=== PATIENT | male | born 1965 | race Caucasian/White ===

== ENCOUNTER → 2021-05-12 15:24 | Outpatient (CLI) | payer OTHER, MEDICAID, SELFPAY ==
--- NOTE | 2021-05-12 15:29 | DI.MRI.S_ITS ---
PROCEDURE: MR ORBITS FACE NECK WO/W CON INDICATIONS: MALIGANT NEOPLASM OF TOUNGE UNSPECIFIED TECHNIQUE: Sagittal/axial/coronal T1 spin echo and STIR. After the administration of contrast, axial/coronal/sagittal T1 fast spin echo with fat saturation through the neck. COMPARISON: None. FINDINGS: Image quality: This examination is limited by involuntary motion artifact. Lymph nodes: No enlarged nodes are seen throughout the neck. Vessels: Visualized vasculature appears normal, with normal flow voids and enhancement. Neck spaces: In this patient with this given history, scrutiny is given to the tongue. There is mild soft tissue fullness with slight increased enhancement seen involving the left tongue base that measures approximately 12 mm. The oropharynx, nasopharynx and pharynx are unremarkable, without mucosal lesions seen. Vocal cords, false vocal cords, pyriform sinuses, epiglottis, and vallecula all appear normal. Extramucosal spaces of the neck also appear unremarkable. Glands: The parotid and submandibular glands appear normal. Thyroid gland demonstrates no significant abnormality. Miscellaneous: Visualized brain and orbits appear normal. Lung apices appear clear. Superficial soft tissues appear normal. Visualized sinuses and mastoids appear clear. Bones: Marrow has normal overall signal. IMPRESSION: Asymmetric soft tissue fullness with increased enhancement can be seen of the left tongue base. Please correlate with known patient history and physical examination findings. No enlarged lymph nodes are detected. Dictated by: Salazar Harrison M.D. on 05/12/2021 at 16:15 Approved by: Salazar Harrison M.D. on 05/12/2021 at 16:19
== END ==
PROVIDERS: Referring Provider Otolaryngology; Visit Provider Otolaryngology
DX: C02.9 Malignant neoplasm of tongue, unspecified (principal)
CPT/HCPCS: 70543

== ENCOUNTER 2021-10-16 07:22 | Emergency (ER) | payer OTHER, MEDICAID, SELFPAY ==
[2021-10-16] VITALS (32 sets, daily range): BP systolic 88–107; BP diastolic 54–74; PULSE 66–115; RESP 18; TEMP 36.6; O2SAT 92–100; BMI 29.8
--- NOTE | 2021-10-16 07:44 | DI.CT.S_ITS ---
PROCEDURE: CT ABDOMEN PELVIS W CON INDICATIONS: abdominal pain TECHNIQUE: After the administration of oral and IV contrast, axial sections were acquired from the lung bases to the pubic symphysis. Coronal and sagittal reformats were performed. For radiation dose reduction, the following was used: automated exposure control, adjustment of mA and/or kV according to patient size. COMPARISON: [facility], CT, ABDOMEN WITH CONTRAST, 01/10/2011, 9:53. [facility], CT, CT-IVP, 11/16/2008, 11:29. [facility], CR, XR CHEST 1V, 10/16/2021, 8:52. FINDINGS: Image quality: Excellent. Lung bases: Unremarkable. Heart: No significant findings. ABDOMEN: Liver: Diffuse fatty liver infiltration is noted. The liver is normal in size and demonstrates no focal lesions. Gallbladder: Unremarkable. Biliary ducts: Unremarkable. Pancreas: Unremarkable. Spleen: Unremarkable. Adrenal Glands: Unremarkable. Kidneys and Ureters: Unremarkable. Stomach and Bowel: Within the proximal sigmoid colon, there is focal wall thickening seen with moderate surrounding inflammatory change. Moderate diverticula formation can be seen within this region. No abscess can be seen. No additional areas focal colonic wall thickening can be seen. No dilated loops of small bowel are seen. A normal appendix is incidentally noted. Peritoneum: No abnormal intraperitoneal fluid. No free air. Ventral Wall: No hernia. Abdominal Nodes: No retroperitoneal or mesenteric adenopathy by size criteria. Vessels: Aorta and inferior vena cava are normal in size. PELVIS: Pelvic Organs: Unremarkable. Bladder: Unremarkable. Pelvic Nodes: No enlarged lymph nodes. Miscellaneous: No inguinal hernias are seen. Bones: Unremarkable. IMPRESSION: Moderate sigmoid diverticulitis. No findings of perforation or abscess are seen. When clinically appropriate (following adequate treatment of the patient's current clinical episode) a colonoscopy is recommended for further evaluation for a potential underlying mass (if not already recently done). Incidental note is made of: Fatty liver infiltration Normal appendix Dictated by: Salazar Harrison M.D. on 10/16/2021 at 8:20 Approved by: Salazar Harrison M.D. on 10/16/2021 at 8:24
--- NOTE | 2021-10-16 07:46 | DI.RAD.S_ITS ---
PROCEDURE: XR CHEST 1V INDICATIONS: abdominal pain TECHNIQUE: One view of the chest was acquired. COMPARISON: [facility], , CHEST 2 VIEW, 02/28/2016, 9:15. FINDINGS: Surgical changes and devices: None. Lungs and pleura: An incomplete inspiratory result is noted, causing a crowded appearance to the lung markings. No focal infiltrates are seen. No pneumothorax or significant pleural effusions are seen. Mediastinum: Mediastinal contours appear normal. Heart size is normal. Bones and chest wall: Age-appropriate bony degenerative changes are seen. No suspicious bony lesions. Overlying soft tissues appear unremarkable. IMPRESSION: Unremarkable portable chest for age. Dictated by: Salazar Harrison M.D. on 10/16/2021 at 8:05 Approved by: Salazar Harrison M.D. on 10/16/2021 at 8:05
[2021-10-16 08:01] LABS: Add Manual Diff / Slide Review NO; Basophils Absolute Auto 0 /uL (0-100); Basophils Percent Auto 0.4 % (0-2); Eosinophils Absolute Auto 100 /uL (0-450); Eosinophils Percent Auto 1.8 % (2-4); Hemoglobin 16.2 g/dL (13.5-17.5); Lymphocytes Absolute Auto 1100 /uL (1100-4500); Lymphocytes Percent Auto 13.7 % (25-40); Mean Corpuscular HGB Conc 34.4 % (30-36); Mean Corpuscular Hemoglobin 32.7 PG (26-34); Mean Corpuscular Volume 94.9 fL (80-100); Monocytes Absolute Auto 1000 /uL (0-900); Monocytes Percent Auto 12.1 % (3-14); Neutrophils Absolute Auto 5900 /uL (1500-7000); Platelet Count 320 X10^3/uL (150-400); Red Blood Cell Count 4.95 X10^6/uL (4.5-5.9); Red Cell Distribution Width 12.2 % (11.6-14.8); White Blood Cell Count 8.1 X10^3/uL (4.5-11.0)
[2021-10-16] MEDS: HYDROMORPHONE 0.5 MG INJ IV ×3 (08:03→11:00)
[2021-10-16] MEDS: ONDANSETRON 4 MG/2 ML INJ IV (08:03)
[2021-10-16 08:13] LABS: Lipase 69 U/L (23-300); Magnesium 1.5 mg/dL (1.6-2.3)
--- NOTE | 2021-10-16 08:15 | ED.ABDPAIN ---
HPI - Abdominal Pain General Chief Complaint: Abdominal Pain Stated Complaint: severe abd. pain Time Seen by Provider: 10/16/21 07:27 Source: patient Mode of arrival: Ambulatory History of Present Illness HPI narrative: 56-year-old gentleman with recently diagnosed diabetes started on metformin 2 weeks ago with abdominal pain, cramping, bloating, significant diarrhea and recent diagnosis tongue cancer in April doing well after that resection presents with 2 weeks of increasing abdominal pain associated with decreased appetite describes his discomfort over the lower portion of the abdomen became more severe last night he has been unable to sleep at all due to the pain comes in for further evaluation. He states that he has been trying to eat and drink but is having difficulty keeping up with that with the volume of liquid stools that he is having. He describes no headache, cough, chest pain, palpitations. He has had no changes to skin, no focal neurologic findings. He describes some mild dysuria and a sense that he is not fully emptying his bladder. Related Data Previous Rx's Medication Instructions Recorded ciprofloxacin HCl 750 mg tablet 750 mg PO BID #20 tab 10/16/21 ciprofloxacin HCl 750 mg tablet 750 mg PO BID #20 tab 10/16/21 metronidazole 500 mg tablet 500 mg PO TID #30 tab 10/16/21 metronidazole 500 mg tablet 500 mg PO TID #30 tab 10/16/21 oxycodone-acetaminophen 5 mg-325 1 tab PO Q6H PRN #10 tab 10/16/21 mg tablet Allergies Allergy/AdvReac Type Severity Reaction Status Date / Time No Known Drug Allergies Allergy Verified 03/29/21 09:33 Review of Systems Review of Systems Narrative: Remainder of complete review of systems is otherwise unremarkable except for that included in the HPI. Patient History Medical History Diabetes Irritable bowel syndrome No active medical problems Tongue cancer Surgical History Status post hernia repair (10/26/11) Social History Smoking Status: Former smoker Smoking Status: Former smoker Substance Use Type: does not use Exam Narrative Exam Narrative: General: Moderate distress secondary to pain but able to give a complete and coherent history. Well-nourished well-developed HEENT: Moist mucous membranes, normal sclera with reactive pupils, Neck: No JVD, supple Respiratory: Lungs are clear to auscultation, no wheezing no rales no rhonchi. Full and symmetrical air movement Cardiac: Mild tachycardia with Regular rate and rhythm no murmurs no bruits Abdomen: Mild distention no significant upper abdominal tenderness significant pain in the lower quadrants left lower quadrant to suprapubic area worse. Developing peritoneal signs without guarding. Mild bilateral flank pain. Skin: Warm and dry, no rashes Neurologic: Grossly neurologically intact with no obvious asymmetries or abnormalities Extremities: No trauma, well perfused Psych: Cooperative, appropriate insight and affect Bladder scan shows 60 cc in the bladder Initial Vital Signs Initial Vital Signs: Vital Signs Pulse Rate 109 H 10/16/21 07:35 Pulse Oximetry 96 10/16/21 07:35 Course Orders Ordered: ED Orders 10/16/21 07:44 CT abdomen pelvis w con Stat 10/16/21 07:46 XR chest 1V Stat 10/16/21 07:48 Complete Blood Count AUTO DIFF Stat Comprehensive Metabolic Panel Stat Lactate (Lactic Acid) Stat Lipase Stat Magnesium Stat Procalcitonin Stat 10/16/21 08:22 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) Stat 10/16/21 08:30 Blood Culture Stat 10/16/21 09:53 Urinalysis and Microscopic Stat Hydromorphone HCl (Hydromorphone 0.5 Mg Inj) 0.5 mg IV Q15MIN PRN PRN Reason: Pain, Last Admin: 10/16/21 11:00 Dose: 0.5 mg Documented by: Admin: 10/16/21 09:59 Dose: 0.5 mg Documented by: Admin: 10/16/21 08:03 Dose: 0.5 mg Documented by: ALLISON Discontinued Medications Sodium Chloride (Normal Saline 0.9%) 2,993.7 mls @ 997.9 mls/hr 30 ml/kg infuse over 3 hr (2993.7 ml) IV NOW ONE Stop: 10/16/21 10:52 Last Admin: 10/16/21 08:16 Dose: 997.9 mls/hr Documented by: ALINE Levofloxacin (Levaquin) 750 mg in 150 mls @ 100 mls/hr IV NOW ONE Stop: 10/16/21 11:21 Last Infusion: 10/16/21 11:32 Dose: 0 mls/hr Documented by: Admin: 10/16/21 09:59 Dose: 100 mls/hr Documented by: ROBBIE Ondansetron HCl (Ondansetron 4 Mg/2 Ml Inj) 4 mg IV NOW ONE Stop: 10/16/21 07:40 Last Admin: 10/16/21 08:03 Dose: 4 mg Documented by: TIFFANIEOOSE Vital Signs Vital signs: Vital Signs - 8 hr 10/16/21 07:35 10/16/21 07:36 10/16/21 07:43 Temperature 97.8 F Pulse Rate 109 H 108 H 115 H Respiratory Rate 18 Blood Pressure 95/74 91/69 Pulse Oximetry 96 93 99 10/16/21 08:00 10/16/21 08:30 10/16/21 09:08 Temperature Pulse Rate 95 H 76 77 Respiratory Rate Blood Pressure Pulse Oximetry 93 98 92 10/16/21 09:30 10/16/21 09:53 10/16/21 10:00 Temperature Pulse Rate 73 75 76 Respiratory Rate Blood Pressure 90/62 Pulse Oximetry 100 98 100 10/16/21 10:02 10/16/21 10:20 10/16/21 10:30 Temperature Pulse Rate 74 69 72 Respiratory Rate 18 Blood Pressure 102/63 88/57 L Pulse Oximetry 100 100 100 10/16/21 10:40 10/16/21 10:49 10/16/21 10:50 Temperature Pulse Rate 70 70 69 Respiratory Rate 18 18 Blood Pressure 90/55 L 89/54 L Pulse Oximetry 100 100 100 10/16/21 11:00 10/16/21 11:02 10/16/21 11:05 Temperature Pulse Rate 71 70 71 Respiratory Rate Blood Pressure 90/54 L 90/54 L Pulse Oximetry 100 100 100 10/16/21 11:06 10/16/21 11:10 10/16/21 11:20 Temperature Pulse Rate 74 69 69 Respiratory Rate Blood Pressure 88/57 L 89/59 L 91/58 L Pulse Oximetry 99 100 100 10/16/21 11:30 10/16/21 11:40 10/16/21 11:50 Temperature Pulse Rate 67 69 72 Respiratory Rate Blood Pressure 88/61 L 89/63 L 107/68 Pulse Oximetry 100 100 100 MDM - Abdominal Pain Lab Data Result diagrams: 10/16/21 07:48 10/16/21 07:48 Labs: Lab Results 10/16/21 10/16/21 10/16/21 Range/Units 07:48 07:48 07:48 WBC 8.1 (4.5-11.0) X10^3/uL RBC 4.95 (4.5-5.9) X10^6/uL Hgb 16.2 (13.5-17.5) g/dL Hct 47.0 (41-53) % MCV 94.9 (80-100) fL MCH 32.7 (26-34) PG MCHC 34.4 (30-36) % RDW 12.2 (11.6-14.8) % Plt Count 320 (150-400) X10^3/uL Neut % (Auto) 72.0 (50-75) % Lymph % (Auto) 13.7 L (25-40) % [place] % (Auto) 12.1 (3-14) % Eos % (Auto) 1.8 L (2-4) % Baso % (Auto) 0.4 (0-2) % Neut # (Auto) 5900 (8459-8129) /uL Lymph # (Auto) 1100 (2034-0703) /uL [place] # (Auto) 1000 H (0-900) /uL Eos # (Auto) 100 (0-450) /uL Baso # (Auto) 0 (0-100) /uL Sodium 136 L (137-145) mmol/L Potassium 4.3 (3.4-5.1) mmol/L Chloride 103 (98-107) mmol/L Carbon Dioxide 21 L (22-32) mmol/L BUN 14 (9-20) mg/dL Creatinine 1.12 (0.66-1.25) mg/dL Estimated GFR > 60.0 (>60) mL/min BUN/Creatinine Ratio 12.5 (6-22) Glucose 144 H (70-100) mg/dL Lactate 1.0 (0.7-2.1) mmol/L Calcium 10.1 (8.4-10.2) mg/dL Magnesium (1.6-2.3) mg/dL Total Bilirubin 0.5 (0.2-1.3) mg/dL AST 35 (17-59) IU/L ALT 61 H (<50) IU/L Alkaline Phosphatase 51 (38-126) U/L Total Protein 7.2 (6.3-8.2) g/dL Albumin 4.4 (3.5-5.0) g/dL Globulin 2.8 (1.7-4.1) g/dL Albumin/Globulin Ratio 1.6 (1.0-2.8) Lipase (23-300) U/L Procalcitonin (<0.5) ng/mL Urine Color Urine Appearance Urine pH (4.5-8.0) Ur Specific [place] (1.000-1.035) Urine Protein (Negative) Urine Glucose (UA) (Negative) g/dL Urine Ketones (NEGATIVE) Urine Occult Blood (Negative) Urine Nitrate (Negative) Urine Bilirubin (NEGATIVE) Urine Urobilinogen (0.2) E.U./dL Ur Leukocyte Esterase (NEGATIVE) Urine RBC (0-5/HPF) Urine WBC (0-5/HPF) Urine Bacteria (None) Ur Culture Indicated? SARS-CoV-2 (PCR) (Negative) 10/16/21 10/16/21 10/16/21 Range/Units 07:48 08:22 09:53 WBC (4.5-11.0) X10^3/uL RBC (4.5-5.9) X10^6/uL Hgb (13.5-17.5) g/dL Hct (41-53) % MCV (80-100) fL MCH (26-34) PG MCHC (30-36) % RDW (11.6-14.8) % Plt Count (150-400) X10^3/uL Neut % (Auto) (50-75) % Lymph % (Auto) (25-40) % [place] % (Auto) (3-14) % Eos % (Auto) (2-4) % Baso % (Auto) (0-2) % Neut # (Auto) (5771-0490) /uL Lymph # (Auto) (8546-1546) /uL [place] # (Auto) (0-900) /uL Eos # (Auto) (0-450) /uL Baso # (Auto) (0-100) /uL Sodium (137-145) mmol/L Potassium (3.4-5.1) mmol/L Chloride (98-107) mmol/L Carbon Dioxide (22-32) mmol/L BUN (9-20) mg/dL Creatinine (0.66-1.25) mg/dL Estimated GFR (>60) mL/min BUN/Creatinine Ratio (6-22) Glucose (70-100) mg/dL Lactate (0.7-2.1) mmol/L Calcium (8.4-10.2) mg/dL Magnesium 1.5 L (1.6-2.3) mg/dL Total Bilirubin (0.2-1.3) mg/dL AST (17-59) IU/L ALT (<50) IU/L Alkaline Phosphatase (38-126) U/L Total Protein (6.3-8.2) g/dL Albumin (3.5-5.0) g/dL Globulin (1.7-4.1) g/dL Albumin/Globulin Ratio (1.0-2.8) Lipase 69 (23-300) U/L Procalcitonin 0.13 (<0.5) ng/mL Urine Color Yellow Urine Appearance Clear Urine pH 5.0 (4.5-8.0) Ur Specific [place] <=1.005 (1.000-1.035) Urine Protein Negative (Negative) Urine Glucose (UA) Negative (Negative) g/dL Urine Ketones 1+ H (NEGATIVE) Urine Occult Blood Negative (Negative) Urine Nitrate Negative (Negative) Urine Bilirubin Negative (NEGATIVE) Urine Urobilinogen 0.2 (0.2) E.U./dL Ur Leukocyte Esterase Negative (NEGATIVE) Urine RBC 0-1/hpf (0-5/HPF) Urine WBC 1-5/hpf (0-5/HPF) Urine Bacteria Few (2-10) H (None) Ur Culture Indicated? Cult not indicated SARS-CoV-2 (PCR) Positive H (Negative) Imaging Data CT scan - abdomen/pelvis: Radiologist's Impression: INDINGS:? Image quality:? Excellent.? ? Lung bases:? Unremarkable.? ? Heart:? No significant findings. ? ? ABDOMEN: Liver: Diffuse fatty liver infiltration is noted.? The liver is normal in size and demonstrates no focal lesions. Gallbladder:? Unremarkable.? ? Biliary ducts:? Unremarkable.? ? Pancreas:? Unremarkable.? ? Spleen:? Unremarkable.? ? Adrenal Glands:? Unremarkable.? ? Kidneys and Ureters:? Unremarkable.? ? ? Stomach and Bowel:? Within the proximal sigmoid colon, there is focal wall thickening seen with moderate surrounding inflammatory change.? Moderate diverticula formation can be seen within this region.? No abscess can be seen. No additional areas focal colonic wall thickening can be seen. No dilated loops of small bowel are seen. A normal appendix is incidentally noted.? Peritoneum:? No abnormal intraperitoneal fluid.? No free air.? ? Ventral Wall: ? No hernia.? Abdominal Nodes:? No retroperitoneal or mesenteric adenopathy by size criteria.? Vessels:? Aorta and inferior vena cava are normal in size.? ? PELVIS: Pelvic Organs:? Unremarkable.? ? Bladder:? Unremarkable.? ? Pelvic Nodes: No enlarged lymph nodes.? Miscellaneous: No inguinal hernias are seen. ? ? ? Bones:? Unremarkable.? IMPRESSION:? ? Moderate sigmoid diverticulitis. ? No findings of perforation or abscess are seen. ? When clinically appropriate (following adequate treatment of the patient's current clinical episode) a colonoscopy is recommended for further evaluation for a potential underlying mass (if not already recently done). ? Incidental note is made of: Fatty liver infiltration Normal appendix ? Dictated by: Salazar Harrison M.D. on 10/16/2021 at 8:20? [facility] Narrative Medical decision making narrative: 56-year-old gentleman with developing diverticulitis in the setting of penicillin for an oral infection. I suspect that is why it has been smoldering for a bit. Suspected got started with the diarrhea as a side effect of his metformin was started 2 weeks ago. He was incidentally noted to have COVID. I think this is true true in likely unrelated. A COVID he may have been contributing a bit to the diarrhea as well. Currently oxygen saturations are 96% any has no pulmonary complaints. Heart rate has come down nicely with simple fluid bolus. He is afebrile. Blood pressure has responded nicely to fluids as well. At this time there is no evidence of sepsis or acute surgical abdomen. Will treat him with 1st dose of antibiotics in the emergency department for his diverticulitis. Will treat him with Cipro and Flagyl and let him know he can stop his penicillin at this time. 11 am At the end of his 2 L of fluid, again noticing blood pressures trending down. Will continue to watch was an additional 3 L of fluid. He is not yet voided. 1230pm patient is not feeling any worse. Still no respiratory issues abdominal pain is slightly better and he does not have a surgical abdomen. He is not showing signs of orthostatic hypotension and blood pressure remains relatively stable in the 102/70 range. Reviewed signs and symptoms of worsening disease and reasons to return to the emergency department. Questions are answered he is safe for home discharge. Discharge Plan Departure Patient Disposition: Home Clinical Impression: Diverticulitis, COVID-19, Adverse reaction to drug, Acute dehydration, Diarrhea Instructions: DI for Diverticulitis, DI for COVID-19 (Suspected or Confirmed ) Activity Restrictions/Additional Instructions: Thank you for coming in today You do not have appendicitis or a severe diverticular abscess or bowel obstruction. We do not need surgery today You do have developing diverticulitis and I suspect the penicillin you been taking for your oral infection has been partially treating it but not completely. I am going to have you start ciprofloxacin twice a day along with Flagyl 3 times a day for the next 10 days. Prescriptions have been electronically transmitted to [facility] in [place]. I suspect that the significant diarrhea as a known side effect of metformin contributed to the developing diverticulitis. I am going to have you stop the metformin You also have COVID. With no respiratory complaints right now it is hard to know when your 1st day of symptoms were. What I would recommend is that you remain isolated for 5 days from now and make sure that you are feeling better prior to returning to more regular activities. Please make sure that you are masking and appropriately distancing. If you find that you are getting worse you do need to return to the emergency department Prescriptions: New ciprofloxacin HCl 750 mg tablet 750 mg PO BID Qty: 20 0RF metronidazole 500 mg tablet 500 mg PO TID Qty: 30 0RF ciprofloxacin HCl 750 mg tablet 750 mg PO BID Qty: 20 0RF metronidazole 500 mg tablet 500 mg PO TID Qty: 30 0RF oxycodone-acetaminophen 5-325 mg tablet 1 tab PO Q6H PRN (Reason: pain) Qty: 10 0RF Referrals: Yazan Cortés MD [Primary Care Provider] -
[2021-10-16] MEDS: SODIUM CHLORIDE 0.9% 2,993.7 ML 997.9 ML IV (08:16)
[2021-10-16 08:31] LABS: Procalcitonin 0.13 ng/mL (<0.5)
[2021-10-16 08:33] LABS: Alanine Aminotransferase 61 IU/L (<50); Albumin 4.4 g/dL (3.5-5.0); Albumin Globulin Ratio 1.6 (1.0-2.8); Alkaline Phosphatase 51 U/L (38-126); Aspartate Aminotransferase 35 IU/L (17-59); BUN Creatinine Ratio 12.5 (6-22); Bilirubin Total 0.5 mg/dL (0.2-1.3); Blood Urea Nitrogen 14 mg/dL (9-20); Calcium 10.1 mg/dL (8.4-10.2); Carbon Dioxide 21 mmol/L (22-32); Chloride 103 mmol/L (98-107); Estimated Glomerular Filt Rate > 60.0 mL/min (>60); Globulin 2.8 g/dL (1.7-4.1); Glucose 144 mg/dL (70-100); HEMOLYSIS < 15 (0-50); Potassium 4.3 mmol/L (3.4-5.1); Sodium 136 mmol/L (137-145); Total Protein 7.2 g/dL (6.3-8.2)
--- NOTE | 2021-10-16 08:34 | PC.NURSE ---
Patient complains of lower left quadrant abdominal cramping/pain and Sore kidneys. Complains of painful urination. Has history of IBS, Tongue cancer. Patient states that he was on a liquid diet following tongue cancer removal for 2 weeks. Recently started the Keto diet. States that he has felt unwell the last 2 weeks. Has complaints of nausea, cramping, loose stools. Abdomen is tender on palpation
[2021-10-16 09:37] LABS: COVID19 - ADMIT (NP swab/PCR) POSITIVE (Negative)
[2021-10-16] MEDS: levoFLOXacin 750 MG/150 ML PIGGYBACK 100 MG IV (09:59)
[2021-10-16 10:08] LABS: Appearance Urine UA CLEAR; Bilirubin Urine UA NEGATIVE (NEGATIVE); Color Urine UA YELLOW; Glucose Urine UA NEGATIVE (Negative); Ketones Urine UA 1+ (NEGATIVE); Leukocyte Esterase Urine UA NEGATIVE (NEGATIVE); Nitrite Urine UA NEGATIVE (Negative); Occult Blood Urine UA NEGATIVE (Negative); Protein Urine UA NEGATIVE (Negative); Specific Gravity Urine UA <=1.005 (1.000-1.035); Urobilinogen Urine UA 0.2 E.U./dL (0.2)
[2021-10-16 10:40] LABS: Bacteria Urine Few (2-10); Culture Indicated Urine Cult Not Indicated; RBC Urine 0-1/HPF (0-5/HPF); WBC Urine 1-5/HPF (0-5/HPF)
== END 2021-10-16 12:59 | disposition home or self-care (01) ==
PROVIDERS: Emergency Provider Emergency Medicine; PCP Family Medicine Sports Medicine
DX: K57.32 Diverticulitis of large intestine without perforation or abscess without bleeding (principal); U07.1 COVID-19; R19.7 Diarrhea, unspecified; E86.0 Dehydration; T38.3X5A Adverse effect of insulin and oral hypoglycemic [antidiabetic] drugs, initial encounter
CPT/HCPCS: 36415; 51798; 71045; 74177; 80053; 81001; 83605; 83690; 83735; 84145; 85025; 87040; 87635; 96361; 96365; 96366; 96375; 99284; C9803; J1170; J1956; J2405; Q9967

== ENCOUNTER 2023-05-08 15:32 | Emergency (ER) | payer OTHER, MEDICAID, SELFPAY ==
[2023-05-08 15:50] VITALS: BP 130/84; PULSE 96; RESP 17; TEMP 36.6; O2SAT 95; BMI 29.8
--- NOTE | 2023-05-08 15:57 | DI.RAD.S_ITS ---
PROCEDURE: XR SACRUM COCCYX MIN 2V INDICATIONS: fall TECHNIQUE: 3 views of the sacrum and coccyx acquired. COMPARISON: None. FINDINGS: Bones: No fractures or dislocations. No suspicious bony lesions. Soft tissues: Visualized bowel gas pattern is normal. No suspicious soft tissue densities. IMPRESSION: No fracture. No acute osseous lesion. If symptoms and/or clinical suspicion for pathology persists, further assessment with repeat radiographs (7-10 days) or advanced imaging (e.g. CT, MRI or bone scan) should be considered. Dictated by: Lesia Chahal MD, PhD on 05/08/2023 at 16:46 Approved by: Lesia Chahal MD, PhD on 05/08/2023 at 16:47
--- NOTE | 2023-05-08 15:58 | DI.RAD.S_ITS ---
PROCEDURE: XR LUMBAR SPINE 2-3V INDICATIONS: fall TECHNIQUE: 3 views of the lumbar spine were acquired. COMPARISON: None. FINDINGS: Bones: 5 [id number] vertebrae are present. There is normal bony alignment. No vertebral body compression fractures. No suspicious bony lesions. Mild degenerative disc changes throughout the lumbar spine. Soft tissues: Overlying bowel gas pattern is normal. No suspicious soft tissue calcifications. IMPRESSION: No fracture. No acute osseous lesion. If symptoms and/or clinical suspicion for pathology persists, evaluation with CT or MRI should be considered for further assessment. Dictated by: Lesia Chahal MD, PhD on 05/08/2023 at 16:47 Approved by: Lesia Chahal MD, PhD on 05/08/2023 at 16:48
[2023-05-08 17:10] VITALS: BP 130/85; PULSE 90; RESP 16; O2SAT 94
--- NOTE | 2023-05-08 17:20 | ED_ITS ---
HPI - Fall <Savana Dobbs PA-C - Last Filed: 05/08/23 17:26> General Chief Complaint: Fall Stated Complaint: Fall Time Seen by Provider: 05/08/23 17:04 Source: patient Mode of arrival: Family Vehicle History of Present Illness HPI Narrative: 57-year-old male presents to the ED status post a mechanical fall sustained yesterday. Patient states that he sat on a cheap lawn chair, the legs gave away causing him to fall backwards on his sacrum and lower back with his knees up in the air. Patient has experienced sharp right-sided lower back pain that sometimes radiates into the right leg. Patient denies numbness, tingling, weakness, saddle paresthesias, urinary hesitancy, urinary incontinence, bowel incontinence, fever, chills. Patient states that he has been taking naproxen with moderate relief. Related Data Previous Rx's Medication Instructions Recorded ciprofloxacin HCl 750 mg tablet 750 mg PO BID #20 tabs 10/16/21 ciprofloxacin HCl 750 mg tablet 750 mg PO BID #20 tabs 10/16/21 metronidazole 500 mg tablet 500 mg PO TID #30 tabs 10/16/21 metronidazole 500 mg tablet 500 mg PO TID #30 tabs 10/16/21 oxycodone-acetaminophen 5 mg-325 1 tab PO Q6H PRN pain #10 tabs 10/16/21 mg tablet cyclobenzaprine 10 mg tablet 10 mg PO TID PRN muscle spasm #14 05/08/23 tabs Allergies Allergy/AdvReac Type Severity Reaction Status Date / Time No Known Drug Allergies Allergy Verified 03/29/21 09:33 Review of Systems <Savana Dobbs PA-C - Last Filed: 05/08/23 17:26> Review of Systems ROS Unobtainable: All systems reviewed & are unremarkable except as noted in HPI and below Constitutional Constitutional: Denies chills, Denies fatigue, Denies fever(s), Denies frequent falls, Denies lethargy and Denies weakness Eyes Eyes: Denies change in vision, Denies eye discharge, Denies irritation and Denies loss of vision ENT Ears, Nose, Mouth, and Throat: Denies change in voice, Denies dizziness, Denies neck pain, Denies sore throat and Denies throat swelling Cardiovascular Cardiovascular: Denies chest pain, Denies irregular heart rhythm, Denies lightheadedness, Denies palpitations, Denies dyspnea, Denies dyspnea on exertion and Denies orthopnea Respiratory Respiratory: Denies cough, Denies dyspnea, Denies dyspnea on exertion and Denies wheezing Gastrointestinal Gastrointestinal: Denies abdominal pain, Denies change in bowel habits, Denies diarrhea, Denies nausea and Denies vomiting Genitourinary Genitourinary: Denies hematuria, Denies flank pain, Denies urinary incontinence and Denies urinary urgency Musculoskeletal Musculoskeletal: Reports back pain, Denies muscle weakness, Denies neck pain, Denies numbness, Reports radiating pain into limb and Denies tingling Integumentary/Breasts Skin/Breast: Denies pruritus, Denies erythema, Denies rash and Denies wounds Neurologic Neurologic: Denies behavioral changes, Denies confusion, Denies dizziness, Denies frequent falls, Denies loss of vision, Denies numbness, Denies tingling and Denies weakness Psychiatric Psychiatric: Denies anxiety, Denies behavioral changes, Denies confusion, Denies depression, Denies homicidal ideation and Denies suicidal ideation Endocrine Endocrine: Denies fatigue, Denies flushing and Denies palpitations Hematologic/Lymphatic Hematologic/Lymphatic: Denies easy bruising Allergic/Immunologic Allergic/Immunologic: Denies urticaria, Denies throat swelling and Denies wheezing Patient History <Savana Dobbs PA-C - Last Filed: 05/08/23 17:26> Medical History Diabetes Irritable bowel syndrome No active medical problems Tongue cancer Surgical History Status post hernia repair (10/26/11) Social History Smoking Status: Former smoker Smoking Status: Former smoker tobacco type: cigarettes alcohol intake frequency: a few times a month Substance Use Type: does not use Exam <Savana Dobbs PA-C - Last Filed: 05/08/23 17:26> Narrative Exam Narrative: Const General:?cooperative, healthy appearing and comfortable [facility] Head:?normal to inspection Ears:?hearing grossly normal bilaterally Nose:?external nose normal Face and sinus:?normal facial exam and sinuses nontender Mouth:?oral mucosae normal Throat:?posterior oropharynx normal Eyes General:?appearance normal, both eyes and all related structures Neck Neck:?normal visual inspection and no lymphadenopathy noted Resp Effort & Inspection:?normal respiratory effort Auscultation:?clear to auscultation bilaterally Cardio Rate:?regular rate Rhythm:?regular rhythm Musculoskeletal No midline tenderness to palpation. There is some paraspinal tenderness to palpation. There is full strength and sensation. Full range of motion. Patient is neurovascularly intact. Neuro General:?patient alert, patient awake and patient oriented x3 Initial Vital Signs Initial Vital Signs: Vital Signs Temperature 97.9 F 05/08/23 15:50 Pulse Rate 96 H 05/08/23 15:50 Respiratory Rate 17 05/08/23 15:50 Blood Pressure 130/84 05/08/23 15:50 Pulse Oximetry 95 05/08/23 15:50 Oxygen Delivery Method Room Air 05/08/23 15:50 <DO Winsome Interiano Last Filed: 05/09/23 09:05> Initial Vital Signs Initial Vital Signs: Vital Signs Temperature 97.9 F 05/08/23 15:50 Pulse Rate 96 H 05/08/23 15:50 Respiratory Rate 17 05/08/23 15:50 Blood Pressure 130/84 05/08/23 15:50 Pulse Oximetry 95 05/08/23 15:50 Oxygen Delivery Method Room Air 05/08/23 15:50 Course <Savana Dobbs PA-C - Last Filed: 05/08/23 17:26> Orders Ordered: ED Orders 05/08/23 15:57 XR sacrum coccyx min 2V Stat 05/08/23 15:58 XR lumbar spine 2-3V Stat Vital Signs Vital signs: Vital Signs - 8 hr 05/08/23 15:50 05/08/23 17:10 Temperature 97.9 F Pulse Rate 96 H 90 Respiratory Rate 17 16 Blood Pressure 130/84 130/85 Pulse Oximetry 95 94 Oxygen Delivery Method Room Air <DO Winsome Interiano Last Filed: 05/09/23 09:05> Orders Ordered: ED Orders 05/08/23 15:57 XR sacrum coccyx min 2V Stat 05/08/23 15:58 XR lumbar spine 2-3V Stat Vital Signs Vital signs: Vital Signs - 8 hr 05/08/23 15:50 05/08/23 17:10 Temperature 97.9 F Pulse Rate 96 H 90 Respiratory Rate 17 16 Blood Pressure 130/84 130/85 Pulse Oximetry 95 94 Oxygen Delivery Method Room Air MDM - Fall <Savana Dobbs PA-C - Last Filed: 05/08/23 17:26> [facility] Narrative Medical decision making narrative: 57-year-old male presents to the ED status post a mechanical fall sustained yesterday. Obtained lumbar and sacral x-rays to rule out fracture/dislocation. X-rays without acute findings. Discussed supportive care with continued naproxen, lidocaine patches, heat packs, muscle relaxants. Recommend follow-up with PCP in 3-5 days. ED return precautions were discussed with patient. Patient verbalized understanding. Medical records reviewed: Yes Discharge Plan Departure Patient Disposition: Home Clinical Impression: Back pain Instructions: How to Prevent Falls Activity Restrictions/Additional Instructions: You were evaluated in the ED today for lower back pain. Your x-rays were normal. Your symptoms are likely due to a musculoskeletal sprain/strain as a result of the fall. You may continue taking naproxen or Advil, you may add lidocaine patches and heat packs. You may also take Flexeril which is a muscle relaxant as needed. Please follow-up with your PCP in 3-5 days. Please return to the ED if you have worsening symptoms, numbness, tingling, weakness, urinary difficulties. Prescriptions: New cyclobenzaprine 10 mg tablet 10 mg PO TID PRN (Reason: muscle spasm) Qty: 14 0RF No Action ciprofloxacin HCl 750 mg tablet 750 mg PO BID Qty: 20 0RF metronidazole 500 mg tablet 500 mg PO TID Qty: 30 0RF ciprofloxacin HCl 750 mg tablet 750 mg PO BID Qty: 20 0RF metronidazole 500 mg tablet 500 mg PO TID Qty: 30 0RF oxycodone-acetaminophen 5-325 mg tablet 1 tab PO Q6H PRN (Reason: pain) Qty: 10 0RF Referrals: Yazan Cortés MD [Primary Care Provider] - Stand Alone Forms: Patient Portal/API <Leesa Cancino DO - Last Filed: 05/09/23 09:05> Cosign ED Attending Nelyature Attestation: I was immediately available in the department for consultation. Documentation has been reviewed.
== END 2023-05-08 17:23 | disposition home or self-care (01) ==
PROVIDERS: Emergency Provider Student in an Organized Health Care Education/Training Program; PCP Family Medicine Sports Medicine
DX: M54.50 Low back pain, unspecified (principal); W07.XXXA Fall from chair, initial encounter
CPT/HCPCS: 72100; 72220; 99281; 99283

== ENCOUNTER 2023-08-01 07:30 | Outpatient (RCR) | payer OTHER, MEDICAID, SELFPAY ==
--- NOTE | 2023-06-28 08:32 | PT.OIE ---
Current Diagnoses Lumbago with sciatica, left side (06/28/23) Right lower quadrant pain (06/28/23) Past Medical History (Last Reviewed 05/08/23 @ 17:24 by Savana Dobbs PA-C) Diabetes Irritable bowel syndrome No active medical problems Tongue cancer Past Surgical History (Last Reviewed 05/08/23 @ 17:24 by Savana Dobbs PA-C) Status post hernia repair (10/26/11) Visit Care Team Role Provider Type Yazan Cortés MD Attending Provider Non-Staff Family Provider Primary Care Provider Referring Provider Specialty: Family Practice Address: [address] [place] [address], [id number] Email: Physical Therapy Initial Evaluation PT-OP-A Visit Information Start: 06/28/23 07:25 Freq: Status: Active Protocol: Document 06/28/23 08:20 ED (Rec: 06/28/23 08:32 ED [id number]) Out-Patient Physical Therapy Visit Information Visit Information Visit Type Initial Evaluation Visit Note 10/17 24 units max Visit Start Time 07:30 Visit Stop Time 08:15 Total Visit Minutes 45 Visit Number 1 Evaluation Information Evaluation Date 06/28/23 PT-OP-B Current Condition Start: 06/28/23 07:25 Freq: Status: Active Protocol: Document 06/28/23 08:20 ED (Rec: 06/28/23 08:32 ED [id number]) Current Condition History of Current Condition Onset Date years Current Complaints chronic low back pain, R groin pain History of Current Condition Pt states that he fell from a chair and hurt his back in mid -April this year and aggravated his back which; he notes he has had chronic back pain for years. He does not work d/t his back injury. Pt states that it is uncomfortable to twist and to bend forward; he also does not lift heavy items d/t pain. He finds relief by lying flat on his back. He also reports R groin pain that limits his activities. He reports poor sleep. He does not exercise. Prior Treatments and Tests many injections into low back with minimal improvements PT-OP-C Subjective Start: 06/28/23 07:25 Freq: Status: Active Protocol: Document 06/28/23 08:20 ED (Rec: 06/28/23 08:32 ED [id number]) Patient Questionnaires Oswestry Low Back Index Oswestry Score 25 / 50 = 50.0 % Oswestry Impairment 40 to 59% Impaired (Score 40- 59) OP-PT Pain Assessment Location low back Pain Location Details low back, down posterior L LE Intensity 7 Scale Used Numeric (0 - 10) Frequency Frequent Pain Aggravating Factors Position,Changing Position,ADL 's,Activity,Exercise,Bending, Lifting Pain Alleviating Factors Lying Supine PT-OP-K Range of Motion Start: 06/28/23 07:25 Freq: Status: Active Protocol: Document 06/28/23 08:20 ED (Rec: 06/28/23 08:32 ED [id number]) Lumbar Spine Range of Motion Lumbar Spine Active Percentage Testing Position Sitting Flexion 15 Extension 15 ROM Limitations Pain Comments did not test rotation or lateral flexion secondary to pain PT-OP-L Special Tests Start: 06/28/23 07:25 Freq: Status: Active Protocol: Document 06/28/23 08:20 ED (Rec: 06/28/23 08:32 ED [id number]) Special Tests Lumbar Spine Special Tests Standing Flexion Test Results + PT-OP-M Strength Start: 06/28/23 07:25 Freq: Status: Active Protocol: Document 06/28/23 08:20 ED (Rec: 06/28/23 08:32 ED [id number]) Trunk Strength Trunk Manual Muscle Testing Testing Position Supine Flexion 4 Good Extension 4- Good- PT-OP-T Assessment and Plan Start: 06/28/23 07:25 Freq: Status: Active Protocol: Document 06/28/23 08:20 ED (Rec: 06/28/23 08:32 ED [id number]) Physical Therapy Assessment Rehab Potential Rehabilitation Potential Fair Evaluation Complexity Number of Personal Factors/Comorbidities 1-2 Number of Body Systems Impaired 3 Clinical Presentation at Evaluation Stable Impairments Impairments Activity Tolerance,Functional Activities,Functional Mobility ,Gait,Pain,ROM,Sensation, Strength Goals Oswestry Impairment Oswestry score Impairment Eval score: 25/50 Corporate Recycling Manager Goal (LTG) Pt will improve Oswestry score by 10 points to a score <15/ 50. LTG Duration 6 weeks % improvement Impairment % improvement Impairment groin and/or back pain Short Term Goal (STG) Pt will report 15% improvement in groin and/or back pain. STG Duration 3 weeks. Corporate Recycling Manager Goal (LTG) Pt will report 25% improvement in groin and/or back pain. LTG Duration 6-8 weeks lumbar flexion Impairment lumbar flexion Short Term Goal (STG) Pt will be able to perform seated and supported lumbar flexion through nearly full ROM c/ pain <4/10. STG Duration 3 weeks Corporate Recycling Manager Goal (LTG) Pt will be able to lift 10# item from ground c/ tolerable low back pain. LTG Duration 6-8 weeks HEP Impairment HEP Short Term Goal (STG) Pt will report performing HEP >3 days/week. STG Duration 3 weeks Corporate Recycling Manager Goal (LTG) Pt will report performing HEP >3 days/week. LTG Duration 6-8 weeks Assessment Summary Assessment Pt reported to PT for acute low back pain exacerbation; he has history of chronic low back pain. Pain was is a result of falling backward in a chair onto his low back. Pt demonstrated reduced lumbar ROM with pain easily triggered especially into flexion and rotation. Pt also had R groin pain that may be related to low back injury. Pt has complex injury history and management of injuries including over 10 injections for low back. Pt will likely require extensive education on management of chronic pain through exercise and cognitive training. Pt will be seen 2x/ week to decrease pain and improve activity tolerance and work capacity. Physical Therapy Plan Frequency and Duration Frequency of Treatment 2x/Week Duration of treatment (weeks) 10 Plan of Care Start Date 06/28/23 Plan of Care End Date 09/26/23 Therapeutic Interventions Therapeutic Interventions Balance Training,Gait Training ,Home Exercise Program,Joint Mobilizations,Manual Therapy, Neuromuscular Re-education, Patient/Caregiver Education, Self-Care/Home Management,Soft Tissue Mobilization,Taping, Therapeutic Activities, Therapeutic Exercises Modalities Biofeedback,Cold Pack/Ice Massage,Electric Stimulation, Hot Packs Next Visit Focus/Plan Next Note Type Treatment Note Next Visit Plan Treadmill, HEP (PB flexion, bridge, adductor squeeze ( bridge), UE horizontal adduction), UBE, scaption isometrics, shrugs
--- NOTE | 2023-06-28 08:32 | PT.OPPOC ---
Physical, Occupational & Speech Therapy At [facility] Current Diagnoses Lumbago with sciatica, left side (06/28/23) Right lower quadrant pain (06/28/23) Visit Care Team Role Provider Type Yazan Cortés MD Attending Provider Non-Staff Family Provider Primary Care Provider Referring Provider Specialty: Family Practice Address: [address] [place] [address], [id number] Email: Plan Of Care PT-OP-T Assessment and Plan Start: 06/28/23 07:25 Freq: Status: Active Protocol: Document 06/28/23 08:20 ED (Rec: 06/28/23 08:32 ED [id number]) Physical Therapy Assessment Rehab Potential Rehabilitation Potential Fair Evaluation Complexity Number of Personal Factors/Comorbidities 1-2 Number of Body Systems Impaired 3 Clinical Presentation at Evaluation Stable Impairments Impairments Activity Tolerance,Functional Activities,Functional Mobility ,Gait,Pain,ROM,Sensation, Strength Goals Oswestry Impairment Oswestry score Impairment Eval score: 25/50 Lead Pastor Goal (LTG) Pt will improve Oswestry score by 10 points to a score <15/ 50. LTG Duration 6 weeks % improvement Impairment % improvement Impairment groin and/or back pain Short Term Goal (STG) Pt will report 15% improvement in groin and/or back pain. STG Duration 3 weeks. Mcfp Goal (LTG) Pt will report 25% improvement in groin and/or back pain. LTG Duration 6-8 weeks lumbar flexion Impairment lumbar flexion Short Term Goal (STG) Pt will be able to perform seated and supported lumbar flexion through nearly full ROM c/ pain <4/10. STG Duration 3 weeks Lead Pastor Goal (LTG) Pt will be able to lift 10# item from ground c/ tolerable low back pain. LTG Duration 6-8 weeks HEP Impairment HEP Short Term Goal (STG) Pt will report performing HEP >3 days/week. STG Duration 3 weeks Lead Pastor Goal (LTG) Pt will report performing HEP >3 days/week. LTG Duration 6-8 weeks Assessment Summary Assessment Pt reported to PT for acute low back pain exacerbation; he has history of chronic low back pain. Pain was is a result of falling backward in a chair onto his low back. Pt demonstrated reduced lumbar ROM with pain easily triggered especially into flexion and rotation. Pt also had R groin pain that may be related to low back injury. Pt has complex injury history and management of injuries including over 10 injections for low back. Pt will likely require extensive education on management of chronic pain through exercise and cognitive training. Pt will be seen 2x/ week to decrease pain and improve activity tolerance and work capacity. Physical Therapy Plan Frequency and Duration Frequency of Treatment 2x/Week Duration of treatment (weeks) 10 Plan of Care Start Date 06/28/23 Plan of Care End Date 09/26/23 Therapeutic Interventions Therapeutic Interventions Balance Training,Gait Training ,Home Exercise Program,Joint Mobilizations,Manual Therapy, Neuromuscular Re-education, Patient/Caregiver Education, Self-Care/Home Management,Soft Tissue Mobilization,Taping, Therapeutic Activities, Therapeutic Exercises Modalities Biofeedback,Cold Pack/Ice Massage,Electric Stimulation, Hot Packs Next Visit Focus/Plan Next Note Type Treatment Note Next Visit Plan Treadmill, HEP (PB flexion, bridge, adductor squeeze ( bridge), UE horizontal adduction), UBE, scaption isometrics, shrugs Plan of Care Dates Plan of Care Start Date 06/28/23 Plan of Care End Date 09/26/23 Electronically Signed by: Hamilton Haywood, PT 06/28/23 0832 If you are in agreement with this Plan of Care, please return a signed and dated copy. I have reviewed this Plan of Care and certify that the skilled therapy services above are required to meet the patient?s needs. Physician Signature Date Printed Name and Credentials Clinical Instructor Signature Printed Name and Credentials
--- NOTE | 2023-07-03 08:22 | PT.OTN ---
Current Diagnoses Lumbago with sciatica, left side (07/03/23) Right lower quadrant pain (07/03/23) Physical Therapy Treatment Note PT-OP-A Visit Information Start: 06/28/23 07:25 Freq: Status: Active Protocol: Document 07/03/23 08:19 ED (Rec: 07/03/23 08:21 ED [id number]) Out-Patient Physical Therapy Visit Information Visit Information Visit Type Treatment Note Visit Note 10/17 Visit Start Time 07:30 Visit Stop Time 08:15 Total Visit Minutes 45 Visit Number 2 PT-OP-B Current Condition Start: 06/28/23 07:25 Freq: Status: Active Protocol: Document 06/28/23 08:20 ED (Rec: 06/28/23 08:32 ED [id number]) Current Condition History of Current Condition Onset Date years Current Complaints chronic low back pain, R groin pain History of Current Condition Pt states that he fell from a chair and hurt his back in mid -April this year and aggravated his back which; he notes he has had chronic back pain for years. He does not work d/t his back injury. Pt states that it is uncomfortable to twist and to bend forward; he also does not lift heavy items d/t pain. He finds relief by lying flat on his back. He also reports R groin pain that limits his activities. He reports poor sleep. He does not exercise. Prior Treatments and Tests many injections into low back with minimal improvements PT-OP-C Subjective Start: 06/28/23 07:25 Freq: Status: Active Protocol: Document 07/03/23 08:19 ED (Rec: 07/03/23 08:21 ED [id number]) OP-PT Subjective Patient Comments Patient Comments pt states that he did some of his HEP over the weekend. He notes that Sunday was so bad that he couldn't do anything. PT-OP-K Range of Motion Start: 06/28/23 07:25 Freq: Status: Active Protocol: Document 06/28/23 08:20 ED (Rec: 06/28/23 08:32 ED [id number]) Lumbar Spine Range of Motion Lumbar Spine Active Percentage Testing Position Sitting Flexion 15 Extension 15 ROM Limitations Pain Comments did not test rotation or lateral flexion secondary to pain PT-OP-L Special Tests Start: 06/28/23 07:25 Freq: Status: Active Protocol: Document 06/28/23 08:20 ED (Rec: 06/28/23 08:32 ED [id number]) Special Tests Lumbar Spine Special Tests Standing Flexion Test Results + PT-OP-M Strength Start: 06/28/23 07:25 Freq: Status: Active Protocol: Document 06/28/23 08:20 ED (Rec: 06/28/23 08:32 ED [id number]) Trunk Strength Trunk Manual Muscle Testing Testing Position Supine Flexion 4 Good Extension 4- Good- PT-OP-Q Treatments Start: 06/28/23 07:25 Freq: Status: Active Protocol: Document 07/03/23 08:19 ED (Rec: 07/03/23 08:21 ED [id number]) Cardio Equipment Treadmill Duration (Minutes) 8 Speed 1.2 Incline 1 Therapeutic Exercises Supine Exercises bridge Supine Exercise Name bridge Reps/Minutes 3x10 Sitting Exercises adductor machine Resistance L2 Reps/Minutes 1e71-12 lumbar flexion Sitting Exercise Name PB lumbar flexoin Reps/Minutes 2x15 PT-OP-T Assessment and Plan Start: 06/28/23 07:25 Freq: Status: Active Protocol: Document 07/03/23 08:19 ED (Rec: 07/03/23 08:21 ED [id number]) Physical Therapy Assessment Goals Oswestry Impairment Oswestry score Impairment Eval score: 25/50 Skilled Nursing Goal (LTG) Pt will improve Oswestry score by 10 points to a score <15/ 50. LTG Duration 6 weeks % improvement Impairment % improvement Impairment groin and/or back pain Short Term Goal (STG) Pt will report 15% improvement in groin and/or back pain. STG Duration 3 weeks. Service Administrator Goal (LTG) Pt will report 25% improvement in groin and/or back pain. LTG Duration 6-8 weeks lumbar flexion Impairment lumbar flexion Short Term Goal (STG) Pt will be able to perform seated and supported lumbar flexion through nearly full ROM c/ pain <4/10. STG Duration 3 weeks Service Administrator Goal (LTG) Pt will be able to lift 10# item from ground c/ tolerable low back pain. LTG Duration 6-8 weeks HEP Impairment HEP Short Term Goal (STG) Pt will report performing HEP >3 days/week. STG Duration 3 weeks Skilled Nursing Goal (LTG) Pt will report performing HEP >3 days/week. LTG Duration 6-8 weeks Assessment Summary Assessment Worked on lumbar ROM and gentle strengthening of adductors and hip extensors. Pt very limited in activity tolerance and required very low load during adductor machine. Informed patient that PT will have similar exercises for first few sessions to mitigate soreness and pain. Physical Therapy Plan Frequency and Duration Frequency of Treatment 2x/Week Duration of treatment (weeks) 10 Plan of Care Start Date 06/28/23 Plan of Care End Date 09/26/23 Therapeutic Interventions Therapeutic Interventions Balance Training,Gait Training ,Home Exercise Program,Joint Mobilizations,Manual Therapy, Neuromuscular Re-education, Patient/Caregiver Education, Self-Care/Home Management,Soft Tissue Mobilization,Taping, Therapeutic Activities, Therapeutic Exercises Modalities Biofeedback,Cold Pack/Ice Massage,Electric Stimulation, Hot Packs Next Visit Focus/Plan Next Note Type Treatment Note Next Visit Plan Treadmill, HEP (PB flexion, bridge, adductor squeeze ( bridge), UE horizontal adduction), UBE, scaption isometrics, shrugs
--- NOTE | 2023-07-06 08:16 | PT.OTN ---
Current Diagnoses Lumbago with sciatica, left side (07/06/23) Right lower quadrant pain (07/06/23) Physical Therapy Treatment Note PT-OP-A Visit Information Start: 06/28/23 07:25 Freq: Status: Active Protocol: Document 07/06/23 08:14 ED (Rec: 07/06/23 08:16 ED [id number]) Out-Patient Physical Therapy Visit Information Visit Information Visit Type Treatment Note Visit Note 01/15 Visit Start Time 07:30 Visit Stop Time 08:15 Total Visit Minutes 45 Visit Number 3 PT-OP-B Current Condition Start: 06/28/23 07:25 Freq: Status: Active Protocol: Document 06/28/23 08:20 ED (Rec: 06/28/23 08:32 ED [id number]) Current Condition History of Current Condition Onset Date years Current Complaints chronic low back pain, R groin pain History of Current Condition Pt states that he fell from a chair and hurt his back in mid -April this year and aggravated his back which; he notes he has had chronic back pain for years. He does not work d/t his back injury. Pt states that it is uncomfortable to twist and to bend forward; he also does not lift heavy items d/t pain. He finds relief by lying flat on his back. He also reports R groin pain that limits his activities. He reports poor sleep. He does not exercise. Prior Treatments and Tests many injections into low back with minimal improvements PT-OP-C Subjective Start: 06/28/23 07:25 Freq: Status: Active Protocol: Document 07/06/23 08:14 ED (Rec: 07/06/23 08:16 ED [id number]) OP-PT Subjective Patient Comments Patient Comments Pt states that he was a little sore in his adductors but not as much as he thought he would be. States he was denied an MRI. PT-OP-K Range of Motion Start: 06/28/23 07:25 Freq: Status: Active Protocol: Document 06/28/23 08:20 ED (Rec: 06/28/23 08:32 ED [id number]) Lumbar Spine Range of Motion Lumbar Spine Active Percentage Testing Position Sitting Flexion 15 Extension 15 ROM Limitations Pain Comments did not test rotation or lateral flexion secondary to pain PT-OP-L Special Tests Start: 06/28/23 07:25 Freq: Status: Active Protocol: Document 06/28/23 08:20 ED (Rec: 06/28/23 08:32 ED [id number]) Special Tests Lumbar Spine Special Tests Standing Flexion Test Results + PT-OP-M Strength Start: 06/28/23 07:25 Freq: Status: Active Protocol: Document 06/28/23 08:20 ED (Rec: 06/28/23 08:32 ED [id number]) Trunk Strength Trunk Manual Muscle Testing Testing Position Supine Flexion 4 Good Extension 4- Good- PT-OP-Q Treatments Start: 06/28/23 07:25 Freq: Status: Active Protocol: Document 07/06/23 08:14 ED (Rec: 07/06/23 08:16 ED [id number]) Cardio Equipment Upper Body Ergometer (UBE) Duration (Minutes) 5 Treadmill Duration (Minutes) 8 Speed 1.2 Incline 1 Therapeutic Exercises Supine Exercises hip flexion Reps/Minutes 1x10 Comments R LE AROM; L LE resisted bridge Supine Exercise Name bridge Reps/Minutes 3x10 Sitting Exercises adductor machine Resistance L2 Reps/Minutes 1o15-76 lumbar flexion Sitting Exercise Name PB lumbar flexoin Reps/Minutes 2x15 PT-OP-T Assessment and Plan Start: 06/28/23 07:25 Freq: Status: Active Protocol: Document 07/06/23 08:14 ED (Rec: 07/06/23 08:16 ED [id number]) Physical Therapy Assessment Goals Oswestry Impairment Oswestry score Impairment Eval score: 25/50 Sed Special Education Teacher Goal (LTG) Pt will improve Oswestry score by 10 points to a score <15/ 50. LTG Duration 6 weeks % improvement Impairment % improvement Impairment groin and/or back pain Short Term Goal (STG) Pt will report 15% improvement in groin and/or back pain. STG Duration 3 weeks. Sed Special Education Teacher Goal (LTG) Pt will report 25% improvement in groin and/or back pain. LTG Duration 6-8 weeks lumbar flexion Impairment lumbar flexion Short Term Goal (STG) Pt will be able to perform seated and supported lumbar flexion through nearly full ROM c/ pain <4/10. STG Duration 3 weeks [facility]dc Goal (LTG) Pt will be able to lift 10# item from ground c/ tolerable low back pain. LTG Duration 6-8 weeks HEP Impairment HEP Short Term Goal (STG) Pt will report performing HEP >3 days/week. STG Duration 3 weeks Sed Special Education Teacher Goal (LTG) Pt will report performing HEP >3 days/week. LTG Duration 6-8 weeks Assessment Summary Assessment Worked on lumbar ROM and gentle strengthening of adductors and hip extensors. Pt very limited in activity tolerance and required very low load during adductor machine. Pt demonstrates extension preference. Physical Therapy Plan Frequency and Duration Frequency of Treatment 2x/Week Duration of treatment (weeks) 10 Plan of Care Start Date 06/28/23 Plan of Care End Date 09/26/23 Therapeutic Interventions Therapeutic Interventions Balance Training,Gait Training ,Home Exercise Program,Joint Mobilizations,Manual Therapy, Neuromuscular Re-education, Patient/Caregiver Education, Self-Care/Home Management,Soft Tissue Mobilization,Taping, Therapeutic Activities, Therapeutic Exercises Modalities Biofeedback,Cold Pack/Ice Massage,Electric Stimulation, Hot Packs Next Visit Focus/Plan Next Note Type Treatment Note Next Visit Plan Treadmill, HEP (PB flexion, bridge, adductor squeeze ( bridge), UE horizontal adduction), UBE, scaption isometrics, shrugs
--- NOTE | 2023-07-10 08:18 | PT.OTN ---
Current Diagnoses Lumbago with sciatica, left side (07/10/23) Right lower quadrant pain (07/10/23) Physical Therapy Treatment Note PT-OP-A Visit Information Start: 06/28/23 07:25 Freq: Status: Active Protocol: Document 07/10/23 07:30 SP (Rec: 07/10/23 08:37 SP [id number]) Out-Patient Physical Therapy Visit Information Visit Information Visit Type Treatment Note Visit Note 01/15 Visit Start Time 07:30 Visit Stop Time 08:18 Total Visit Minutes 48 Visit Number 4 Number of PROJECT FACILITATOR Visits 1 Evaluation Information Evaluation Date 06/28/23 PT-OP-B Current Condition Start: 06/28/23 07:25 Freq: Status: Active Protocol: Document 06/28/23 08:20 ED (Rec: 06/28/23 08:32 ED [id number]) Current Condition History of Current Condition Onset Date years Current Complaints chronic low back pain, R groin pain History of Current Condition Pt states that he fell from a chair and hurt his back in mid -April this year and aggravated his back which; he notes he has had chronic back pain for years. He does not work d/t his back injury. Pt states that it is uncomfortable to twist and to bend forward; he also does not lift heavy items d/t pain. He finds relief by lying flat on his back. He also reports R groin pain that limits his activities. He reports poor sleep. He does not exercise. Prior Treatments and Tests many injections into low back with minimal improvements PT-OP-C Subjective Start: 06/28/23 07:25 Freq: Status: Active Protocol: Document 07/10/23 07:30 SP (Rec: 07/10/23 08:37 SP [id number]) OP-PT Subjective Patient Comments Patient Comments He reports still recovering from last tx supine resisted KTC, groin is really sore and affecting how moves. He stated still limited with bridging due to weakness/fatigued and uncomfortable in LB. PT-OP-K Range of Motion Start: 06/28/23 07:25 Freq: Status: Active Protocol: Document 06/28/23 08:20 ED (Rec: 06/28/23 08:32 ED [id number]) Lumbar Spine Range of Motion Lumbar Spine Active Percentage Testing Position Sitting Flexion 15 Extension 15 ROM Limitations Pain Comments did not test rotation or lateral flexion secondary to pain PT-OP-L Special Tests Start: 06/28/23 07:25 Freq: Status: Active Protocol: Document 06/28/23 08:20 ED (Rec: 06/28/23 08:32 ED [id number]) Special Tests Lumbar Spine Special Tests Standing Flexion Test Results + PT-OP-M Strength Start: 06/28/23 07:25 Freq: Status: Active Protocol: Document 06/28/23 08:20 ED (Rec: 06/28/23 08:32 ED [id number]) Trunk Strength Trunk Manual Muscle Testing Testing Position Supine Flexion 4 Good Extension 4- Good- PT-OP-Q Treatments Start: 06/28/23 07:25 Freq: Status: Active Protocol: Document 07/10/23 07:30 SP (Rec: 07/10/23 08:37 SP [id number]) Cardio Equipment Treadmill Duration (Minutes) 8 Speed 1.2 Incline 1 Other ue of rail support Therapeutic Exercises Supine Exercises SKTC Side bilateral Reps/Minutes 20 SH x2 Comments good post hip/LS stretch adductor stretch Supine Exercise Name added to HEP (KFO to side tolerated) Side bilateral Reps/Minutes 15 SH tolerated for prox stretch Comments range no LB recruitment LTR Supine Exercise Name added to HEP Side bilateral Reps/Minutes x10 AROM, x10 BLE over 55cm tball Comments good demo slow pacing, ORACLE EBS ARCHITECT, and reported sciatic nerve glide Supine Exercise Name added to HEP: HS stretch with AP Equipment Used grasp behind thigh Reps/Minutes 2 x10 reps w/ AP Comments good feedback response hip flexion Side right Reps/Minutes x10 Comments R LE AROM, back irritated couldn't tolerate perform L bridge Supine Exercise Name bridge Reps/Minutes 6 x3 sets Comments fatigues quickly Sitting Exercises lumbar flexion Sitting Exercise Name PB lumbar flexoin Resistance 85 cm tball Reps/Minutes 2x15 Standing Exercises Sit<>stand PB OH Standing Exercise Name trialed in PT Resistance 55cm tball OH Reps/Minutes x3 reps Comments irritated LB, needed stop sink stretch Standing Exercise Name instructed as alternative LB stretch (no ball home) Equipment Used trunk flexion contact TM rail Reps/Minutes 30 Comments good feedback QL stretch with cues for pelvic tilt side Other Exercises Self STMs Other Exercise Name instructed/performed for HEP PRN Side bilateral Equipment Used rolling pin: quad, add, discussed ES: racquetball Comments states does massage Adductor but need prox to pubic bone- disc tactile self Self-Care/Home Management Treatment Education Other Education Some time spent on discussion of use pillows and trunk alignment sleeping to allow spinal support. He uses body pillow front/back with UE/ LE support. PT-OP-T Assessment and Plan Start: 06/28/23 07:25 Freq: Status: Active Protocol: Document 07/10/23 07:30 SP (Rec: 07/10/23 08:37 SP [id number]) Physical Therapy Assessment Goals Oswestry Impairment Oswestry score Impairment Eval score: 25/50 Senior Living Goal (LTG) Pt will improve Oswestry score by 10 points to a score <15/ 50. LTG Duration 6 weeks % improvement Impairment % improvement Impairment groin and/or back pain Short Term Goal (STG) Pt will report 15% improvement in groin and/or back pain. STG Duration 3 weeks. Service Promoter Salesperson Goal (LTG) Pt will report 25% improvement in groin and/or back pain. LTG Duration 6-8 weeks lumbar flexion Impairment lumbar flexion Short Term Goal (STG) Pt will be able to perform seated and supported lumbar flexion through nearly full ROM c/ pain <4/10. STG Duration 3 weeks Service Promoter Salesperson Goal (LTG) Pt will be able to lift 10# item from ground c/ tolerable low back pain. LTG Duration 6-8 weeks HEP Impairment HEP Short Term Goal (STG) Pt will report performing HEP >3 days/week. STG Duration 3 weeks Senior Living Goal (LTG) Pt will report performing HEP >3 days/week. LTG Duration 6-8 weeks Assessment Summary Assessment Pt had good response to addition of flexibility ROM& stretch this tx for decreased increase hip abd and LS ROM so not so sore in adductors end tx. Provided HOs for set up/ recall/performance reminders. Good understanding of balance stretch needed with strengthening to progress in mobility. Pt still gingerly gait leaving with adductor soreness into WB. Physical Therapy Plan Frequency and Duration Frequency of Treatment 2x/Week Duration of treatment (weeks) 10 Plan of Care Start Date 06/28/23 Plan of Care End Date 09/26/23 Therapeutic Interventions Therapeutic Interventions Balance Training,Gait Training ,Home Exercise Program,Joint Mobilizations,Manual Therapy, Neuromuscular Re-education, Patient/Caregiver Education, Self-Care/Home Management,Soft Tissue Mobilization,Taping, Therapeutic Activities, Therapeutic Exercises Modalities Biofeedback,Cold Pack/Ice Massage,Electric Stimulation, Hot Packs Next Visit Focus/Plan Next Note Type Treatment Note Next Visit Plan Treadmill, HEP (PB flexion, bridge, adductor squeeze ( bridge), UE horizontal adduction), UBE, scaption isometrics, shrugs, adductor/ LTR, sciatic nerve glide, KFO/ adductor stretch, resisted shld ext.
--- NOTE | 2023-07-13 08:15 | PT.OTN ---
Current Diagnoses Lumbago with sciatica, left side (07/13/23) Right lower quadrant pain (07/13/23) Physical Therapy Treatment Note PT-OP-A Visit Information Start: 06/28/23 07:25 Freq: Status: Active Protocol: Document 07/13/23 08:11 ED (Rec: 07/13/23 08:15 ED [id number]) Out-Patient Physical Therapy Visit Information Visit Information Visit Type Treatment Note Visit Note 07/17 Visit Start Time 07:30 Visit Stop Time 08:10 Total Visit Minutes 40 Visit Number 5 Number of CYBER SECURITY INSTRUCTOR Visits 0 PT-OP-B Current Condition Start: 06/28/23 07:25 Freq: Status: Active Protocol: Document 06/28/23 08:20 ED (Rec: 06/28/23 08:32 ED [id number]) Current Condition History of Current Condition Onset Date years Current Complaints chronic low back pain, R groin pain History of Current Condition Pt states that he fell from a chair and hurt his back in mid -April this year and aggravated his back which; he notes he has had chronic back pain for years. He does not work d/t his back injury. Pt states that it is uncomfortable to twist and to bend forward; he also does not lift heavy items d/t pain. He finds relief by lying flat on his back. He also reports R groin pain that limits his activities. He reports poor sleep. He does not exercise. Prior Treatments and Tests many injections into low back with minimal improvements PT-OP-C Subjective Start: 06/28/23 07:25 Freq: Status: Active Protocol: Document 07/13/23 08:11 ED (Rec: 07/13/23 08:15 ED [id number]) OP-PT Subjective Patient Comments Patient Comments Pt states that his R hip flexor is better today. PT-OP-K Range of Motion Start: 06/28/23 07:25 Freq: Status: Active Protocol: Document 06/28/23 08:20 ED (Rec: 06/28/23 08:32 ED [id number]) Lumbar Spine Range of Motion Lumbar Spine Active Percentage Testing Position Sitting Flexion 15 Extension 15 ROM Limitations Pain Comments did not test rotation or lateral flexion secondary to pain PT-OP-L Special Tests Start: 06/28/23 07:25 Freq: Status: Active Protocol: Document 10/05/23 08:20 ED (Rec: 06/28/23 08:32 ED [id number]) Special Tests Lumbar Spine Special Tests Standing Flexion Test Results + PT-OP-M Strength Start: 06/28/23 07:25 Freq: Status: Active Protocol: Document 06/28/23 08:20 ED (Rec: 06/28/23 08:32 ED [id number]) Trunk Strength Trunk Manual Muscle Testing Testing Position Supine Flexion 4 Good Extension 4- Good- PT-OP-Q Treatments Start: 06/28/23 07:25 Freq: Status: Active Protocol: Document 07/13/23 08:11 ED (Rec: 07/13/23 08:15 ED [id number]) Cardio Equipment Treadmill Duration (Minutes) 8 Speed 1.2 Incline 1 Other 5' fwd, 3' bkwd Therapeutic Exercises Sitting Exercises lat pull down Sitting Exercise Name lat pull down Resistance L4 Reps/Minutes 2x15 knee extension Sitting Exercise Name knee extension Resistance L2 Reps/Minutes 2x15 lumbar flexion Sitting Exercise Name PB lumbar flexoin Resistance 85 cm tball Reps/Minutes 2x15 Standing Exercises row Standing Exercise Name unilateral cable row Resistance L3 Equipment Used cable column Reps/Minutes 3x10 Therapeutic Activity Therapeutic Activity hip hinge Reps/Minutes 1x10 Comments 10# to 4'' step PT-OP-T Assessment and Plan Start: 06/28/23 07:25 Freq: Status: Active Protocol: Document 07/13/23 08:11 ED (Rec: 07/13/23 08:15 ED [id number]) Physical Therapy Assessment Goals Oswestry Impairment Oswestry score Impairment Eval score: 25/50 Care Home Goal (LTG) Pt will improve Oswestry score by 10 points to a score <15/ 50. LTG Duration 6 weeks % improvement Impairment % improvement Impairment groin and/or back pain Short Term Goal (STG) Pt will report 15% improvement in groin and/or back pain. STG Duration 3 weeks. Rn Endocrinology Goal (LTG) Pt will report 25% improvement in groin and/or back pain. LTG Duration 6-8 weeks lumbar flexion Impairment lumbar flexion Short Term Goal (STG) Pt will be able to perform seated and supported lumbar flexion through nearly full ROM c/ pain <4/10. STG Duration 3 weeks Rn Endocrinology Goal (LTG) Pt will be able to lift 10# item from ground c/ tolerable low back pain. LTG Duration 6-8 weeks HEP Impairment HEP Short Term Goal (STG) Pt will report performing HEP >3 days/week. STG Duration 3 weeks Care Home Goal (LTG) Pt will report performing HEP >3 days/week. LTG Duration 6-8 weeks Assessment Summary Assessment Pt tolerated treatment well until he performed the hip hinging movement to a 4'' box. Pt had low back muscle spasms . Pt very sensitive to forward flexion activities and will need to slowly be introduced to those movements with reduced ROM and load. Physical Therapy Plan Frequency and Duration Frequency of Treatment 2x/Week Duration of treatment (weeks) 10 Plan of Care Start Date 06/28/23 Plan of Care End Date 09/26/23 Therapeutic Interventions Therapeutic Interventions Balance Training,Gait Training ,Home Exercise Program,Joint Mobilizations,Manual Therapy, Neuromuscular Re-education, Patient/Caregiver Education, Self-Care/Home Management,Soft Tissue Mobilization,Taping, Therapeutic Activities, Therapeutic Exercises Modalities Biofeedback,Cold Pack/Ice Massage,Electric Stimulation, Hot Packs Next Visit Focus/Plan Next Note Type Treatment Note Next Visit Plan Treadmill, HEP (PB flexion, bridge, adductor squeeze ( bridge), UE horizontal adduction), UBE, scaption isometrics, shrugs, adductor/ LTR, sciatic nerve glide, KFO/ adductor stretch, resisted shld ext.
--- NOTE | 2023-07-18 08:10 | PT.OTN ---
Current Diagnoses Lumbago with sciatica, left side (07/18/23) Right lower quadrant pain (07/18/23) Physical Therapy Treatment Note PT-OP-A Visit Information Start: 06/28/23 07:25 Freq: Status: Active Protocol: Document 07/18/23 08:06 ED (Rec: 07/18/23 08:10 ED [id number]) Out-Patient Physical Therapy Visit Information Visit Information Visit Type Treatment Note Visit Note Visit Start Time 07:30 Visit Stop Time 08:10 Total Visit Minutes 40 Visit Number 6 Number of EDGER FEEDER Visits 0 PT-OP-B Current Condition Start: 06/28/23 07:25 Freq: Status: Active Protocol: Document 06/28/23 08:20 ED (Rec: 06/28/23 08:32 ED [id number]) Current Condition History of Current Condition Onset Date years Current Complaints chronic low back pain, R groin pain History of Current Condition Pt states that he fell from a chair and hurt his back in mid -April this year and aggravated his back which; he notes he has had chronic back pain for years. He does not work d/t his back injury. Pt states that it is uncomfortable to twist and to bend forward; he also does not lift heavy items d/t pain. He finds relief by lying flat on his back. He also reports R groin pain that limits his activities. He reports poor sleep. He does not exercise. Prior Treatments and Tests many injections into low back with minimal improvements PT-OP-C Subjective Start: 06/28/23 07:25 Freq: Status: Active Protocol: Document 07/18/23 08:06 ED (Rec: 07/18/23 08:10 ED [id number]) OP-PT Subjective Patient Comments Patient Comments Pt notes he has been having a lot of low back discomfort since last session. He thinks it was from the bending over exercise. PT-OP-K Range of Motion Start: 06/28/23 07:25 Freq: Status: Active Protocol: Document 06/28/23 08:20 ED (Rec: 06/28/23 08:32 ED [id number]) Lumbar Spine Range of Motion Lumbar Spine Active Percentage Testing Position Sitting Flexion 15 Extension 15 ROM Limitations Pain Comments did not test rotation or lateral flexion secondary to pain PT-OP-L Special Tests Start: 06/28/23 07:25 Freq: Status: Active Protocol: Document 06/28/23 08:20 ED (Rec: 06/28/23 08:32 ED [id number]) Special Tests Lumbar Spine Special Tests Standing Flexion Test Results + PT-OP-M Strength Start: 06/28/23 07:25 Freq: Status: Active Protocol: Document 06/28/23 08:20 ED (Rec: 06/28/23 08:32 ED [id number]) Trunk Strength Trunk Manual Muscle Testing Testing Position Supine Flexion 4 Good Extension 4- Good- PT-OP-Q Treatments Start: 06/28/23 07:25 Freq: Status: Active Protocol: Document 07/18/23 08:06 ED (Rec: 07/18/23 08:10 ED [id number]) Cardio Equipment Treadmill Duration (Minutes) 8 Speed 1.2 Incline 1 Therapeutic Exercises Prone Exercises press up Prone Exercise Name prone press up Reps/Minutes x2 minutes hold Sitting Exercises lat pull down Sitting Exercise Name lat pull down Resistance L4 Reps/Minutes 2x15 lumbar flexion Sitting Exercise Name PB lumbar flexion Resistance 85 cm tball Reps/Minutes 2x15 Standing Exercises row Standing Exercise Name unilateral cable row Resistance L3 Equipment Used cable column Reps/Minutes 3x10 Therapeutic Activity Therapeutic Activity squat Name STS Reps/Minutes 2x5 PT-OP-T Assessment and Plan Start: 06/28/23 07:25 Freq: Status: Active Protocol: Document 07/18/23 08:06 ED (Rec: 07/18/23 08:10 ED [id number]) Physical Therapy Assessment Goals Oswestry Impairment Oswestry score Impairment Eval score: 25/50 [place] Goal (LTG) Pt will improve Oswestry score by 10 points to a score <15/ 50. LTG Duration 6 weeks % improvement Impairment % improvement Impairment groin and/or back pain Short Term Goal (STG) Pt will report 15% improvement in groin and/or back pain. STG Duration 3 weeks. [place] Goal (LTG) Pt will report 25% improvement in groin and/or back pain. LTG Duration 6-8 weeks lumbar flexion Impairment lumbar flexion Short Term Goal (STG) Pt will be able to perform seated and supported lumbar flexion through nearly full ROM c/ pain <4/10. STG Duration 3 weeks [place] Goal (LTG) Pt will be able to lift 10# item from ground c/ tolerable low back pain. LTG Duration 6-8 weeks HEP Impairment HEP Short Term Goal (STG) Pt will report performing HEP >3 days/week. STG Duration 3 weeks [place] Goal (LTG) Pt will report performing HEP >3 days/week. LTG Duration 6-8 weeks Assessment Summary Assessment Due to increase in LBP, PT elected to not perform any hip hinging activities as that seemed to aggravate his back last week. Pt demonstrates extension preference for low back so trialed prone press ups as a way to find positional relief. PT would like to promote more hip hinging activities but patient has high sensitivity to that movment pattern and his beliefs will also play a role in him wanting to avoid those positions. Physical Therapy Plan Frequency and Duration Frequency of Treatment 2x/Week Duration of treatment (weeks) 10 Plan of Care Start Date 06/28/23 Plan of Care End Date 09/26/23 Therapeutic Interventions Therapeutic Interventions Balance Training,Gait Training ,Home Exercise Program,Joint Mobilizations,Manual Therapy, Neuromuscular Re-education, Patient/Caregiver Education, Self-Care/Home Management,Soft Tissue Mobilization,Taping, Therapeutic Activities, Therapeutic Exercises Modalities Biofeedback,Cold Pack/Ice Massage,Electric Stimulation, Hot Packs Next Visit Focus/Plan Next Note Type Treatment Note Next Visit Plan Treadmill, HEP (PB flexion, bridge, adductor squeeze ( bridge), UE horizontal adduction), UBE, scaption isometrics, shrugs, adductor/ LTR, sciatic nerve glide, KFO/ adductor stretch, resisted shld ext.
--- NOTE | 2023-07-20 09:02 | PT.OTN ---
Current Diagnoses Lumbago with sciatica, left side (07/20/23) Right lower quadrant pain (07/20/23) Physical Therapy Treatment Note PT-OP-A Visit Information Start: 06/28/23 07:25 Freq: Status: Active Protocol: Document 07/20/23 08:58 ED (Rec: 07/20/23 09:02 ED [id number]) Out-Patient Physical Therapy Visit Information Visit Information Visit Type Treatment Note Visit Note Visit Start Time 07:25 Visit Stop Time 08:00 Total Visit Minutes 35 Visit Number 7 Number of DAY HABILITATION SPECIALIST Visits 0 PT-OP-B Current Condition Start: 06/28/23 07:25 Freq: Status: Active Protocol: Document 06/28/23 08:20 ED (Rec: 06/28/23 08:32 ED [id number]) Current Condition History of Current Condition Onset Date years Current Complaints chronic low back pain, R groin pain History of Current Condition Pt states that he fell from a chair and hurt his back in mid -April this year and aggravated his back which; he notes he has had chronic back pain for years. He does not work d/t his back injury. Pt states that it is uncomfortable to twist and to bend forward; he also does not lift heavy items d/t pain. He finds relief by lying flat on his back. He also reports R groin pain that limits his activities. He reports poor sleep. He does not exercise. Prior Treatments and Tests many injections into low back with minimal improvements PT-OP-C Subjective Start: 06/28/23 07:25 Freq: Status: Active Protocol: Document 07/20/23 08:58 ED (Rec: 07/20/23 09:02 ED [id number]) OP-PT Subjective Patient Comments Patient Comments Pt states his back is less sore today but his L groin is extremely sore. He thinks it's from the sit<>stands. PT-OP-K Range of Motion Start: 06/28/23 07:25 Freq: Status: Active Protocol: Document 06/28/23 08:20 ED (Rec: 06/28/23 08:32 ED [id number]) Lumbar Spine Range of Motion Lumbar Spine Active Percentage Testing Position Sitting Flexion 15 Extension 15 ROM Limitations Pain Comments did not test rotation or lateral flexion secondary to pain PT-OP-L Special Tests Start: 06/28/23 07:25 Freq: Status: Active Protocol: Document 06/28/23 08:20 ED (Rec: 06/28/23 08:32 ED [id number]) Special Tests Lumbar Spine Special Tests Standing Flexion Test Results + PT-OP-M Strength Start: 06/28/23 07:25 Freq: Status: Active Protocol: Document 06/28/23 08:20 ED (Rec: 06/28/23 08:32 ED [id number]) Trunk Strength Trunk Manual Muscle Testing Testing Position Supine Flexion 4 Good Extension 4- Good- PT-OP-Q Treatments Start: 06/28/23 07:25 Freq: Status: Active Protocol: Document 07/20/23 08:58 ED (Rec: 07/20/23 09:02 ED [id number]) Cardio Equipment Recumbent Bicycle Duration (Minutes) 5 Resistance 5 Therapeutic Exercises Supine Exercises leg press Supine Exercise Name leg press Resistance 50# Reps/Minutes 2x20 Prone Exercises press up Prone Exercise Name prone press up Reps/Minutes x2 minutes hold Sitting Exercises lat pull down Sitting Exercise Name lat pull down Resistance L4 Reps/Minutes 2x15 PT-OP-T Assessment and Plan Start: 06/28/23 07:25 Freq: Status: Active Protocol: Document 07/20/23 08:58 ED (Rec: 07/20/23 09:02 ED [id number]) Physical Therapy Assessment Goals Oswestry Impairment Oswestry score Impairment Eval score: 25/50 Halfway Goal (LTG) Pt will improve Oswestry score by 10 points to a score <15/ 50. LTG Duration 6 weeks % improvement Impairment % improvement Impairment groin and/or back pain Short Term Goal (STG) Pt will report 15% improvement in groin and/or back pain. STG Duration 3 weeks. Halfway Goal (LTG) Pt will report 25% improvement in groin and/or back pain. LTG Duration 6-8 weeks lumbar flexion Impairment lumbar flexion Short Term Goal (STG) Pt will be able to perform seated and supported lumbar flexion through nearly full ROM c/ pain <4/10. STG Duration 3 weeks Nps Goal (LTG) Pt will be able to lift 10# item from ground c/ tolerable low back pain. LTG Duration 6-8 weeks HEP Impairment HEP Short Term Goal (STG) Pt will report performing HEP >3 days/week. STG Duration 3 weeks Nps Goal (LTG) Pt will report performing HEP >3 days/week. LTG Duration 6-8 weeks Assessment Summary Assessment D/t groin pain today, patient warmed up on recumbent bike instead of TM. Worked on lat pull downs and leg press today to decrease stress through LEs and groin area. Pt able to perform exercises comfortably today. Physical Therapy Plan Frequency and Duration Frequency of Treatment 2x/Week Duration of treatment (weeks) 10 Plan of Care Start Date 06/28/23 Plan of Care End Date 09/26/23 Therapeutic Interventions Therapeutic Interventions Balance Training,Gait Training ,Home Exercise Program,Joint Mobilizations,Manual Therapy, Neuromuscular Re-education, Patient/Caregiver Education, Self-Care/Home Management,Soft Tissue Mobilization,Taping, Therapeutic Activities, Therapeutic Exercises Modalities Biofeedback,Cold Pack/Ice Massage,Electric Stimulation, Hot Packs Next Visit Focus/Plan Next Note Type Treatment Note Next Visit Plan Treadmill, HEP (PB flexion, bridge, adductor squeeze ( bridge), UE horizontal adduction), UBE, scaption isometrics, shrugs, adductor/ LTR, sciatic nerve glide, KFO/ adductor stretch, resisted shld ext.
--- NOTE | 2023-07-25 08:11 | PT.OTN ---
Current Diagnoses Lumbago with sciatica, left side (07/25/23) Right lower quadrant pain (07/25/23) Physical Therapy Treatment Note PT-OP-A Visit Information Start: 06/28/23 07:25 Freq: Status: Active Protocol: Document 07/25/23 08:07 ED (Rec: 07/25/23 08:11 ED [id number]) Out-Patient Physical Therapy Visit Information Visit Information Visit Type Treatment Note Visit Note Visit Start Time 07:25 Visit Stop Time 08:00 Total Visit Minutes 35 Visit Number 8 Number of MAINTENANCE TRUCK DRIVER Visits 0 PT-OP-B Current Condition Start: 06/28/23 07:25 Freq: Status: Active Protocol: Document 06/28/23 08:20 ED (Rec: 06/28/23 08:32 ED [id number]) Current Condition History of Current Condition Onset Date years Current Complaints chronic low back pain, R groin pain History of Current Condition Pt states that he fell from a chair and hurt his back in mid -April this year and aggravated his back which; he notes he has had chronic back pain for years. He does not work d/t his back injury. Pt states that it is uncomfortable to twist and to bend forward; he also does not lift heavy items d/t pain. He finds relief by lying flat on his back. He also reports R groin pain that limits his activities. He reports poor sleep. He does not exercise. Prior Treatments and Tests many injections into low back with minimal improvements PT-OP-C Subjective Start: 06/28/23 07:25 Freq: Status: Active Protocol: Document 07/25/23 08:07 ED (Rec: 07/25/23 08:11 ED [id number]) OP-PT Subjective Patient Comments Patient Comments Pt states that he came to PT because he needed to in order to get an MRI for his groin and/or back. PT-OP-K Range of Motion Start: 06/28/23 07:25 Freq: Status: Active Protocol: Document 06/28/23 08:20 ED (Rec: 06/28/23 08:32 ED [id number]) Lumbar Spine Range of Motion Lumbar Spine Active Percentage Testing Position Sitting Flexion 15 Extension 15 ROM Limitations Pain Comments did not test rotation or lateral flexion secondary to pain PT-OP-L Special Tests Start: 06/28/23 07:25 Freq: Status: Active Protocol: Document 06/28/23 08:20 ED (Rec: 06/28/23 08:32 ED [id number]) Special Tests Lumbar Spine Special Tests Standing Flexion Test Results + PT-OP-M Strength Start: 06/28/23 07:25 Freq: Status: Active Protocol: Document 06/28/23 08:20 ED (Rec: 06/28/23 08:32 ED [id number]) Trunk Strength Trunk Manual Muscle Testing Testing Position Supine Flexion 4 Good Extension 4- Good- PT-OP-Q Treatments Start: 06/28/23 07:25 Freq: Status: Active Protocol: Document 07/25/23 08:07 ED (Rec: 07/25/23 08:11 ED [id number]) Cardio Equipment Treadmill Duration (Minutes) 8 Speed 1.2 Incline 1 Therapeutic Exercises Supine Exercises leg press Supine Exercise Name leg press Resistance 50# Reps/Minutes 2x20 Prone Exercises press up Prone Exercise Name prone press up Reps/Minutes x2 minutes hold Sitting Exercises lat pull down Sitting Exercise Name lat pull down Resistance L4 Reps/Minutes 2x15 lumbar flexion Sitting Exercise Name PB lumbar flexion Resistance 85 cm tball Reps/Minutes 2x15 PT-OP-T Assessment and Plan Start: 06/28/23 07:25 Freq: Status: Active Protocol: Document 07/25/23 08:07 ED (Rec: 07/25/23 08:11 ED [id number]) Physical Therapy Assessment Goals Oswestry Impairment Oswestry score Impairment Eval score: 25/50 Correction Goal (LTG) Pt will improve Oswestry score by 10 points to a score <15/ 50. LTG Duration 6 weeks % improvement Impairment % improvement Impairment groin and/or back pain Short Term Goal (STG) Pt will report 15% improvement in groin and/or back pain. STG Duration 3 weeks. Correction Goal (LTG) Pt will report 25% improvement in groin and/or back pain. LTG Duration 6-8 weeks lumbar flexion Impairment lumbar flexion Short Term Goal (STG) Pt will be able to perform seated and supported lumbar flexion through nearly full ROM c/ pain <4/10. STG Duration 3 weeks Freelance Programmer/App Developer Goal (LTG) Pt will be able to lift 10# item from ground c/ tolerable low back pain. LTG Duration 6-8 weeks HEP Impairment HEP Short Term Goal (STG) Pt will report performing HEP >3 days/week. STG Duration 3 weeks Correction Goal (LTG) Pt will report performing HEP >3 days/week. LTG Duration 6-8 weeks Assessment Summary Assessment Pt performed lat pull downs and leg press for bulk of work today. He also performed lumbar ROM drills into flexion and extension. Pt limited in overall functional mobility d /t pain in back and groin. Pt demonstrates fear avoidance and adapts his physical activities d/t pain. PT has worked on improving his tissue tolerance to different positions and loading but patient can be self limiting in performing those activities as he doesn't feel comfortable doing them d/t fear of pain afterwards. Physical Therapy Plan Frequency and Duration Frequency of Treatment 2x/Week Duration of treatment (weeks) 10 Plan of Care Start Date 06/28/23 Plan of Care End Date 09/26/23 Therapeutic Interventions Therapeutic Interventions Balance Training,Gait Training ,Home Exercise Program,Joint Mobilizations,Manual Therapy, Neuromuscular Re-education, Patient/Caregiver Education, Self-Care/Home Management,Soft Tissue Mobilization,Taping, Therapeutic Activities, Therapeutic Exercises Modalities Biofeedback,Cold Pack/Ice Massage,Electric Stimulation, Hot Packs Next Visit Focus/Plan Next Note Type Treatment Note Next Visit Plan Treadmill, HEP (PB flexion, bridge, adductor squeeze ( bridge), UE horizontal adduction), UBE, scaption isometrics, shrugs, adductor/ LTR, sciatic nerve glide, KFO/ adductor stretch, resisted shld ext.
--- NOTE | 2023-08-01 08:08 | PT.OPDS ---
Current Diagnoses Lumbago with sciatica, left side (08/01/23) Right lower quadrant pain (08/01/23) Visit Care Team Role Provider Type Yazan Cortés MD Attending Provider Non-Staff Family Provider Primary Care Provider Referring Provider Specialty: Family Practice Address: [place], [address] Email: Visit Number Visit Number 9 Discharge Summary PT-OP-B Current Condition Start: 06/28/23 07:25 Freq: Status: Active Protocol: Document 06/28/23 08:20 ED (Rec: 06/28/23 08:32 ED [id number]) Current Condition History of Current Condition Onset Date years Current Complaints chronic low back pain, R groin pain History of Current Condition Pt states that he fell from a chair and hurt his back in mid -April this year and aggravated his back which; he notes he has had chronic back pain for years. He does not work d/t his back injury. Pt states that it is uncomfortable to twist and to bend forward; he also does not lift heavy items d/t pain. He finds relief by lying flat on his back. He also reports R groin pain that limits his activities. He reports poor sleep. He does not exercise. Prior Treatments and Tests many injections into low back with minimal improvements PT-OP-C Subjective Start: 06/28/23 07:25 Freq: Status: Active Protocol: Document 08/01/23 08:05 ED (Rec: 08/01/23 08:08 ED [id number]) OP-PT Subjective Patient Comments Patient Comments No major changes for patient to report. Denies much improvement in hip and back pain. PT-OP-K Range of Motion Start: 06/28/23 07:25 Freq: Status: Active Protocol: Document 06/28/23 08:20 ED (Rec: 06/28/23 08:32 ED [id number]) Lumbar Spine Range of Motion Lumbar Spine Active Percentage Testing Position Sitting Flexion 15 Extension 15 ROM Limitations Pain Comments did not test rotation or lateral flexion secondary to pain PT-OP-L Special Tests Start: 06/28/23 07:25 Freq: Status: Active Protocol: Document 06/28/23 08:20 ED (Rec: 06/28/23 08:32 ED [id number]) Special Tests Lumbar Spine Special Tests Standing Flexion Test Results + PT-OP-M Strength Start: 06/28/23 07:25 Freq: Status: Active Protocol: Document 06/28/23 08:20 ED (Rec: 06/28/23 08:32 ED [id number]) Trunk Strength Trunk Manual Muscle Testing Testing Position Supine Flexion 4 Good Extension 4- Good- PT-OP-T Assessment and Plan Start: 06/28/23 07:25 Freq: Status: Active Protocol: Document 08/01/23 08:05 ED (Rec: 08/01/23 08:08 ED [id number]) Physical Therapy Assessment Goals Oswestry Impairment Oswestry score Impairment Eval score: 25/50 Manager Infrastructure Goal (LTG) Pt will improve Oswestry score by 10 points to a score <15/ 50. LTG Duration 6 weeks % improvement Impairment % improvement Impairment groin and/or back pain Short Term Goal (STG) Pt will report 15% improvement in groin and/or back pain. STG Duration 3 weeks. Manager Infrastructure Goal (LTG) Pt will report 25% improvement in groin and/or back pain. LTG Duration 6-8 weeks lumbar flexion Impairment lumbar flexion Short Term Goal (STG) Pt will be able to perform seated and supported lumbar flexion through nearly full ROM c/ pain <4/10. STG Duration 3 weeks Prison Goal (LTG) Pt will be able to lift 10# item from ground c/ tolerable low back pain. LTG Duration 6-8 weeks HEP Impairment HEP Short Term Goal (STG) Pt will report performing HEP >3 days/week. STG Duration 3 weeks Manager Infrastructure Goal (LTG) Pt will report performing HEP >3 days/week. LTG Duration 6-8 weeks Assessment Summary Assessment Pt will be discharged from PT at this time. Pt did not have any improvements in pain since starting PT and he also is close to his insurance benefits max for physical therapy. Pt stated he wanted physical therapy so he could get an MRI for his groin. No improvements were made in regards to groin pain during daily and recreational activities. Physical Therapy Plan Discharge Physical Therapy Discharge Reasons Plateau in Progress
== END 2023-08-07 09:41 | disposition home or self-care (01) ==
LOC: PHYS 07:30
PROVIDERS: Family Provider Family Medicine Sports Medicine; PCP Family Medicine Sports Medicine; Referring Provider Family Medicine Sports Medicine; Visit Provider Family Medicine Sports Medicine
DX: R10.31 Right lower quadrant pain (principal); M54.42 Lumbago with sciatica, left side
CPT/HCPCS: 97110; 97162; 97530

== ENCOUNTER 2023-09-20 05:53 | Emergency (ER) | payer OTHER, MEDICAID, SELFPAY ==
[2023-09-20 06:00] VITALS: BP 167/90; PULSE 104; RESP 18; TEMP 36.6; O2SAT 96; BMI 29.1
[2023-09-20] MEDS: PROPARACAINE 0.5% OPHTH SOL 1 DROPS EYE-LEFT (06:00)
[2023-09-20] MEDS: FLUORESCEIN 1 MG STRIP EYE-BOTH (06:01)
--- NOTE | 2023-09-20 06:10 | ED_ITS ---
HPI - General Adult General Chief complaint: Eye Problems Stated complaint: itching, burning, swollen rt eye x 5 days Time Seen by Provider: 09/20/23 05:54 Source: patient Mode of arrival: Ambulatory History of Present Illness HPI narrative: Patient is a 58-year-old male. Does not wear corrective lenses nor contacts. Is here for evaluation of itching burning foreign body sensation swollen right eye that has been present for the past 5 days. He states that over the past year he has had multiple issues with stye in his eyes. He is needed them lanced by his eye doctor. He states that he felt like this morning his eye was more swollen. His symptoms were little worse this morning. Redness around his eye. Related Data Previous Rx's Medication Instructions Recorded ciprofloxacin HCl 750 mg tablet 750 mg PO BID #20 tabs 10/16/21 ciprofloxacin HCl 750 mg tablet 750 mg PO BID #20 tabs 10/16/21 metronidazole 500 mg tablet 500 mg PO TID #30 tabs 10/16/21 metronidazole 500 mg tablet 500 mg PO TID #30 tabs 10/16/21 oxycodone-acetaminophen 5 mg-325 1 tab PO Q6H PRN pain #10 tabs 10/16/21 mg tablet cyclobenzaprine 10 mg tablet 10 mg PO TID PRN muscle spasm #14 05/08/23 tabs erythromycin 5 mg/gram (0.5 %) eye 0.5 inch EYE-RIGHT TID 3 days #3.5 09/20/23 ointment grams Allergies Allergy/AdvReac Type Severity Reaction Status Date / Time No Known Drug Allergies Allergy Verified 03/29/21 09:33 Review of Systems Eyes Eyes: Reports system reviewed and no additional complaints, except as documented ENT Ears, Nose, Mouth, and Throat: Reports system reviewed and no additional c omplaints, except as documented Integumentary/Breasts Skin/Breast: Reports system reviewed and no additional complaints, except as documented Patient History Medical History Irritable bowel syndrome Diabetes Tongue cancer No active medical problems Surgical History Status post hernia repair (10/26/11) Social History Smoking Status: Former smoker Smoking Status: Former smoker tobacco type: cigarettes alcohol intake frequency: a few times a month Substance Use Type: does not use Exam Initial Vital Signs Initial Vital Signs: Vital Signs Temperature 97.9 F 09/20/23 06:00 Pulse Rate 104 H 09/20/23 06:00 Respiratory Rate 18 09/20/23 06:00 Blood Pressure 167/90 H 09/20/23 06:00 Pulse Oximetry 96 09/20/23 06:00 Oxygen Delivery Method Room Air 09/20/23 06:00 Eyes Pupils: PERRL Other: Mild swelling around the right eye. Has an obvious hordeolum in the right upper eye lid temporal region. With fluorescein staining there his small amount of linear uptake on the temporal aspect of the cornea. No foreign body noted. Skin Other: Small amount of redness right upper eyelid Course Orders Ordered: Discontinued Medications Erythromycin (Erythromycin Ophth 1 Gm Oint) 1 applic EYE-RIGHT NOW ONE Stop: 09/20/23 06:12 Last Admin: 09/20/23 06:16 Dose: 1 applic Fluorescein Sodium (Fluorescein 1 Mg Strip) 1 mg EYE-BOTH NOW ONE Stop: 09/20/23 05:55 Last Admin: 09/20/23 06:01 Dose: 1 mg Documented By: ANA M Proparacaine HCl (Proparacaine 0.5% Ophth Laura) 1 drops EYE-LEFT NOW ONE Stop: 09/20/23 05:55 Last Admin: 09/20/23 06:00 Dose: 1 drop Documented By: ANA M Vital Signs Vital signs: Vital Signs - 8 hr 09/20/23 06:00 Temperature 97.9 F Pulse Rate 104 H Respiratory Rate 18 Blood Pressure 167/90 H Pulse Oximetry 96 Oxygen Delivery Method Room Air Medical Decision Making MDM Narrative Medical decision making narrative: Physical exam today is consistent with an obvious stye in the right upper eyelid. There is a small amount of redness around the area. This is more consistent with a an inflammation not a periorbital cellulitis. No foreign body noted. There are also findings consistent with a corneal abrasion most likely from him rubbing his eye over the past day. Will place on erythromycin ointment. We discussed other conservative measures. Advised that he contact his primary doctor for follow-up. He expressed understanding and agreement. Discharge Plan Departure Patient Disposition: Home Clinical Impression: Hordeolum externum (stye), Corneal abrasion Instructions: DI for Corneal Abrasion, DI for Hordeolum Activity Restrictions/Additional Instructions: There is an obvious stye in the right upper outer eyelid. For this I recommend warm compresses and light massage. You may need follow-up with your eye doctor for definitive treatment. To help soothe the eye you can use cool compresses. There does appear to be some scratches to the eye. These called corneal abrasions. The antibiotic ointment will be helpful for this. Return to the emergency department for new symptoms. Prescriptions: New erythromycin 5 mg/gram (0.5 %) ointment 0.5 inch EYE-RIGHT TID 3 Days Qty: 3.5 2RF No Action cyclobenzaprine 10 mg tablet 10 mg PO TID PRN (Reason: muscle spasm) Qty: 14 0RF ciprofloxacin HCl 750 mg tablet 750 mg PO BID Qty: 20 0RF metronidazole 500 mg tablet 500 mg PO TID Qty: 30 0RF ciprofloxacin HCl 750 mg tablet 750 mg PO BID Qty: 20 0RF metronidazole 500 mg tablet 500 mg PO TID Qty: 30 0RF oxycodone-acetaminophen 5-325 mg tablet 1 tab PO Q6H PRN (Reason: pain) Qty: 10 0RF Referrals: Yazan Cortés MD [Primary Care Provider] - Stand Alone Forms: Patient Portal/API
[2023-09-20] MEDS: ERYTHROMYCIN OPHTH 1 GM OINT 1 APPLIC EYE-RIGHT (06:16)
== END 2023-09-20 06:15 | disposition home or self-care (01) ==
PROVIDERS: Emergency Provider Emergency Medicine; Family Provider Family Medicine Sports Medicine; PCP Family Medicine Sports Medicine
DX: H00.011 Hordeolum externum right upper eyelid (principal); S05.01XA Injury of conjunctiva and corneal abrasion without foreign body, right eye, initial encounter
CPT/HCPCS: 99282

== ENCOUNTER 2023-12-22 11:01 | Emergency (ER) | payer OTHER, MEDICAID, SELFPAY ==
[2023-12-22] VITALS (12 sets, daily range): BP systolic 102–136; BP diastolic 57–95; PULSE 84–119; RESP 13–20; TEMP 36.1; O2SAT 93–99; BMI 29.8
[2023-12-22 11:33] LABS: Add Manual Diff / Slide Review NO; Basophils Absolute Auto 100 /uL (0-100); Eosinophils Absolute Auto 100 /uL (0-450); Eosinophils Percent Auto 0.9 % (2-4); Hematocrit 50.7 % (41-53); Lymphocytes Absolute Auto 2200 /uL (1100-4500); Lymphocytes Percent Auto 18.4 % (25-40); Mean Corpuscular HGB Conc 33.5 % (30-36); Mean Corpuscular Hemoglobin 33.3 PG (26-34); Mean Corpuscular Volume 99.3 fL (80-100); Monocytes Absolute Auto 700 /uL (0-900); Monocytes Percent Auto 6.1 % (3-14); Neutrophils Absolute Auto 9000 /uL (1500-7000); Neutrophils Percent Auto 73.6 % (50-75); Platelet Count 336 X10^3/uL (150-400); Red Blood Cell Count 5.11 X10^6/uL (4.5-5.9); Red Cell Distribution Width 13.3 % (11.6-14.8); White Blood Cell Count 12.2 X10^3/uL (4.5-11.0)
[2023-12-22 11:43] LABS: Alanine Aminotransferase 57 IU/L (<50); Albumin 4.8 g/dL (3.5-5.0); Albumin Globulin Ratio 1.3 (1.0-2.8); Alkaline Phosphatase 103 U/L (38-126); Aspartate Aminotransferase 41 IU/L (17-59); BUN Creatinine Ratio 8.1 (6-22); Bilirubin Total 0.9 mg/dL (0.2-1.3); Blood Urea Nitrogen 8 mg/dL (9-20); Carbon Dioxide 24 mmol/L (22-32); Chloride 102 mmol/L (98-107); Estimated Glomerular Filt Rate > 60 mL/min (>60); Globulin 3.8 g/dL (1.7-4.1); Glucose 125 mg/dL (70-100); HEMOLYSIS < 15 (0-50); Lipase 132 U/L (23-300); Potassium 4.2 mmol/L (3.4-5.1); Sodium 135 mmol/L (137-145); Total Protein 8.6 g/dL (6.3-8.2)
[2023-12-22] MEDS: ONDANSETRON 4 MG/2 ML INJ IV (12:38)
[2023-12-22] MEDS: HYDROMORPHONE 1 MG INJ IV (12:38)
[2023-12-22] MEDS: SODIUM CHLORIDE 0.9% 1,000 ML 1000 ML IV (12:39)
--- NOTE | 2023-12-22 12:57 | ED_ITS ---
HPI - Abdominal Pain General Chief Complaint: Abdominal Pain Stated Complaint: Thinks Diverticulitis Time Seen by Provider: 12/22/23 12:12 Source: patient Mode of arrival: Ambulatory History of Present Illness HPI narrative: 58-year-old male with a history of diverticulitis here with left lower quadrant abdominal pain. He says he has had diarrhea for a couple of weeks and some minor left lower quadrant abdominal pain that has become much more noticeable over the last 24 hours. He has not had fevers he has not had vomiting he is continuing to have diarrhea without blood. He has previously had an umbilical hernia repair. Had 1 prior episode of diverticulitis about 2 years ago. No urinary symptoms. Related Data Previous Rx's Medication Instructions Recorded cyclobenzaprine 10 mg tablet 10 mg PO TID PRN muscle spasm #14 05/08/23 tabs amoxicillin 875 mg-potassium 1 tab PO BID #20 tabs 12/22/23 clavulanate 125 mg tablet ondansetron 4 mg disintegrating 4 mg PO Q6H PRN nausea and 12/22/23 tablet vomiting #14 tabs oxycodone 5 mg tablet 5 mg PO Q6H PRN pain #10 tabs 12/22/23 Allergies Allergy/AdvReac Type Severity Reaction Status Date / Time No Known Drug Allergies Allergy Verified 12/22/23 11:07 Patient History Medical History Irritable bowel syndrome Diabetes Tongue cancer No active medical problems Surgical History Status post hernia repair (10/26/11) Social History Smoking Status: Former smoker Smoking Status: Former smoker tobacco type: cigarettes alcohol intake frequency: a few times a month Substance Use Type: does not use Exam Narrative Exam Narrative: Alert, no acute distress HEENT: Normocephalic, atraumaitic moist mucus membranes Neck: Supple no midline tenderness Lungs: Clear to ascultaion, no respiratory distress Heart: Regular rhythm and rate no murmur Abdomen: Normal bowel sounds, soft, left lower quadrant is tender with voluntary guarding no mass Extremeties: Full range of motion no deformity Neuro: Alert and oriented, normal speech moves x4 Initial Vital Signs Initial Vital Signs: Vital Signs Temperature 97 F L 12/22/23 11:03 Pulse Rate 119 H 12/22/23 11:03 Respiratory Rate 18 12/22/23 11:03 Blood Pressure 136/95 H 12/22/23 11:03 Pulse Oximetry 99 12/22/23 11:03 Oxygen Delivery Method Room Air 12/22/23 11:03 Course Orders Ordered: ED Orders 12/22/23 11:22 Complete Blood Count AUTO DIFF Stat Comprehensive Metabolic Panel Stat Lipase Stat 12/22/23 12:56 CT abdomen pelvis w con Stat Discontinued Medications Hydromorphone HCl (Hydromorphone 1 Mg Inj) 1 mg IV NOW ONE Stop: 12/22/23 12:13 Last Admin: 12/22/23 12:38 Dose: 1 mg Documented By: JANNET Sodium Chloride (Normal Saline 0.9%) 1,000 mls @ 1,000 mls/hr IV BOLUS ONE Stop: 12/22/23 13:11 Last Infusion: 12/22/23 13:19 Dose: Infused Documented By: Admin: 12/22/23 12:39 Dose: 1,000 mls/hr Documented By: JANNET Ondansetron HCl (Ondansetron 4 Mg Odt) 4 mg PO NOW PRN PRN Reason: Nausea And Vomiting Ondansetron HCl (Ondansetron 4 Mg/2 Ml Inj) 4 mg IV NOW PRN PRN Reason: Nausea And Vomiting Last Admin: 12/22/23 12:38 Dose: 4 mg Documented By: JANNET Vital Signs Vital signs: Vital Signs - 8 hr 12/22/23 11:03 12/22/23 11:11 12/22/23 11:15 Temperature 97 F L Pulse Rate 119 H 107 H Respiratory Rate 18 Blood Pressure 136/95 H 132/81 Pulse Oximetry 99 Oxygen Delivery Method Room Air 12/22/23 11:15 12/22/23 11:30 12/22/23 11:30 Temperature Pulse Rate 106 H 101 H Respiratory Rate 15 16 Blood Pressure 114/72 Pulse Oximetry 98 95 Oxygen Delivery Method 12/22/23 12:00 12/22/23 12:00 12/22/23 12:30 Temperature Pulse Rate 98 H Respiratory Rate 16 Blood Pressure 107/73 111/69 Pulse Oximetry 96 Oxygen Delivery Method 12/22/23 12:30 12/22/23 12:45 12/22/23 12:45 Temperature Pulse Rate 91 H 87 Respiratory Rate 17 16 Blood Pressure 117/74 Pulse Oximetry 94 95 Oxygen Delivery Method 12/22/23 13:00 12/22/23 13:00 12/22/23 13:18 Temperature Pulse Rate 90 Respiratory Rate 17 Blood Pressure 119/75 116/74 Pulse Oximetry 96 Oxygen Delivery Method 12/22/23 13:18 12/22/23 13:30 12/22/23 13:30 Temperature Pulse Rate 90 91 H Respiratory Rate 20 13 Blood Pressure 106/70 Pulse Oximetry 97 96 Oxygen Delivery Method 12/22/23 13:45 12/22/23 13:45 12/22/23 14:00 Temperature Pulse Rate 85 Respiratory Rate 20 Blood Pressure 105/63 102/57 L Pulse Oximetry 93 Oxygen Delivery Method 12/22/23 14:00 Temperature Pulse Rate 84 Respiratory Rate 16 Blood Pressure Pulse Oximetry 94 Oxygen Delivery Method MDM - Abdominal Pain Lab Data Lab results narrative: CBC with diff shows a heme concentration, on CMP his glucose is 125 12/22/23 11:22 12/22/23 11:22 Labs: Lab Results 12/22/23 Range/Units 11:22 WBC 12.2 H (4.5-11.0) X10^3/uL RBC 5.11 (4.5-5.9) X10^6/uL Hgb 17.0 (13.5-17.5) g/dL Hct 50.7 (41-53) % MCV 99.3 (80-100) fL MCH 33.3 (26-34) PG MCHC 33.5 (30-36) % RDW 13.3 (11.6-14.8) % Plt Count 336 (150-400) X10^3/uL Neut % (Auto) 73.6 (50-75) % Lymph % (Auto) 18.4 L (25-40) % [place] % (Auto) 6.1 (3-14) % Eos % (Auto) 0.9 L (2-4) % Baso % (Auto) 1.0 (0-2) % Neut # (Auto) 9000 H (3773-0938) /uL Lymph # (Auto) 2200 (5885-7661) /uL [place] # (Auto) 700 (0-900) /uL Eos # (Auto) 100 (0-450) /uL Baso # (Auto) 100 (0-100) /uL Sodium 135 L (137-145) mmol/L Potassium 4.2 (3.4-5.1) mmol/L Chloride 102 (98-107) mmol/L Carbon Dioxide 24 (22-32) mmol/L BUN 8 L (9-20) mg/dL Creatinine 0.99 (0.66-1.25) mg/dL Estimated GFR > 60 (>60) mL/min BUN/Creatinine Ratio 8.1 (6-22) Glucose 125 H (70-100) mg/dL Calcium 10.0 (8.4-10.2) mg/dL Total Bilirubin 0.9 (0.2-1.3) mg/dL AST 41 (17-59) IU/L ALT 57 H (<50) IU/L Alkaline Phosphatase 103 (38-126) U/L Total Protein 8.6 H (6.3-8.2) g/dL Albumin 4.8 (3.5-5.0) g/dL Globulin 3.8 (1.7-4.1) g/dL Albumin/Globulin Ratio 1.3 (1.0-2.8) Lipase 132 (23-300) U/L Point of care testing: Urine Dip Bedside Urine Glucose Negative Bedside Urine Bilirubin - Negative Bedside Urine Ketone - Negative Urine Specific [place] 1.01 Bedside Urine Occult Blood - Negative Bedside Urine pH 6.0 Bedside Urine Protein - Negative Bedside Urine Urobilinogen - Negative Bedside Urine Nitrite - Negative Bedside Urine Leukocytes - Negative Esterase Imaging Data CT scan - abdomen/pelvis: Radiologist's Impression: [address] [address] [address] Scan Report Signed Patient: Anderson Cruz MR#: [id number] : 1965 Acct:[id number] Age/Sex: 58 / M Date of Service: 12/22/23 Loc: ED Accession Number: [id number] Procedure: CT abdomen pelvis w con Ordering Provider: Vadim Ely MD PROCEDURE: CT ABDOMEN PELVIS W CON INDICATIONS: llq abd pain TECHNIQUE: After the administration of intravenous contrast, axial sections acquired from the lung bases to the pubic symphysis. Coronal and sagittal reformats were performed. For radiation dose reduction, the following was used: automated exposure control, adjustment of mA and/or kV according to patient size. COMPARISON: [facility], MR, MR PELVIS WITHOUT CONTRAST, 09/25/2023, 6:46. [facility], CT, CT ABDOMEN PELVIS W CON, 10/16/2021, 9:02. FINDINGS: Image quality: Diagnostic. Lower Chest: No significant findings. ABDOMEN: Liver: No solid mass. Hepatic steatosis and hepatomegaly is seen. Gallbladder: No radiopaque gallstones or wall thickening.. Biliary ducts: No biliary dilation. Pancreas: No ductal dilation. Spleen: Size is within normal limits. Adrenal Glands: No adrenal nodules. Kidneys and Ureters: No hydronephrosis. No solid mass. No complex renal cystic lesion which requires follow up. Nonspecific mild bilateral perinephric fat stranding is seen. Stomach and Bowel: There is no bowel obstruction. No gastric or small bowel wall thickening. Extensive descending colon and sigmoid colon diverticulosis is seen with focal area of mild wall thickening and pericolonic fat stranding involving distal descending colon/proximal sigmoid colon in left lower quadrant series 3 image 35 and series 2, image 58. No peritoneal abscess collection. Peritoneum: No abnormal intraperitoneal fluid. No free air. Ventral Wall: No significant ventral hernia. Abdominal Nodes: No retroperitoneal or mesenteric adenopathy by size criteria. Vessels: Aorta and inferior vena cava are normal in size. PELVIS: Pelvic Organs: Unremarkable. Bladder: No bladder wall thickening, accounting for underdistention. Pelvic Nodes: No enlarged lymph nodes. Miscellaneous: No inguinal hernias are seen. Bones: No aggressive osseous abnormality. There is prior left total hip arthroplasty with significant beam hardening artifacts. Hypodense collection within left anterior upper thigh muscle at the level of left femoral neck is seen measures 2.9 x 6 cm in size without peripheral wall enhancement or thickening. This is best seen at series 2, image 87. IMPRESSION: 1. Finding is suggestive of diverticulitis involving distal descending colon/proximal sigmoid colon in left lower quadrant with wall thickening and pericolonic fat stranding. No abscess collection. No signs of perforation. No free fluid or free air. 2. Nonspecific mild bilateral perinephric fat stranding. No hydronephrosis or renal stones. Low-grade pyelonephritis cannot be excluded. Clinical correlation is recommended. 3. Patient is status post left total hip arthroplasty. Possible large seroma in anterior left upper thigh muscle at the level of left femoral neck as described above. Clinical correlation and follow-up is recommended. Dictated by: Negrito Mckee M.D. on 12/22/2023 at 13:51 Approved by: Negrito Mckee M.D. on 12/22/2023 at 13:56 MDM Narrative Medical decision making narrative: 58-year-old man with a history of diverticulitis presents with left lower quadrant abdominal pain and tenderness. He is nontoxic in appearance, labs are reassuring CT shows uncomplicated diverticulitis. He is able to tolerate oral intake. I considered but do not suspect perforation, urinary tract infection or ureteral stone. I started him on Augmentin he was discharged home he was also given prescription for Zofran and oxycodone. Discharge Plan Departure Patient Disposition: Home Clinical Impression: Diverticulitis Instructions: DI for Diverticulitis Activity Restrictions/Additional Instructions: Emergency department workup today shows diverticulitis. I have sent a prescription for Augmentin to your pharmacy, pick this antibiotic up and take it daily for the full course. I have also sent a prescription for a few oxycodone that you can use as needed for pain, be careful of constipation while taking this if you are getting constipated use a stool softener which is available over the counter such as Colace. I have sent a prescription for ondansetron that you can use as needed for nausea and vomiting. Ibuprofen and acetaminophen (Tylenol) at usual [id number] dosing is also appropriate for pain and should be your 1st line. If you are having increasing pain fevers uncontrolled vomiting or other acute symptoms return to the emergency department. Follow-up with your primary care provider in the coming week. I recommend clear liquid diet until your symptoms are improving and then you can advance her diet as tolerated. Prescriptions: New amoxicillin-pot clavulanate 875-125 mg tablet 1 tab PO BID Qty: 20 0RF ondansetron 4 mg tablet,disintegrating 4 mg PO Q6H PRN (Reason: nausea and vomiting) Qty: 14 0RF oxycodone 5 mg tablet 5 mg PO Q6H PRN (Reason: pain) Qty: 10 0RF No Action cyclobenzaprine 10 mg tablet 10 mg PO TID PRN (Reason: muscle spasm) Qty: 14 0RF Referrals: Yazan Cortés MD [Primary Care Provider] - Stand Alone Forms: Patient Portal/API
== END 2023-12-22 14:19 | disposition home or self-care (01) ==
PROVIDERS: Emergency Provider Emergency Medicine; Family Provider Family Medicine Sports Medicine; PCP Family Medicine Sports Medicine
DX: K57.92 Diverticulitis of intestine, part unspecified, without perforation or abscess without bleeding (principal)
CPT/HCPCS: 36415; 74177; 80053; 81003; 83690; 85025; 96361; 96374; 96375; 99284; J1170; J2405; Q9967

== ENCOUNTER 2024-03-26 08:15 | Outpatient (CLI) | payer OTHER, MEDICAID, SELFPAY ==
[2024-03-26 08:25] VITALS: BP 129/79; PULSE 95; RESP 18; TEMP 36.4; O2SAT 96
[2024-03-26 08:38] VITALS: BP 121/71; PULSE 86; RESP 15; O2SAT 96
[2024-03-26] MEDS: DEXAMETHASONE 10 MG/ML VIAL INJ (08:42)
[2024-03-26] MEDS: BUPIVACAINE 0.25% (PF) VIAL 2 ML INJ (08:42)
[2024-03-26] MEDS: iopamidoL 15 ML VIAL 3 ML INJ (08:42)
[2024-03-26 08:43] VITALS: BP 125/71; PULSE 82; RESP 16; O2SAT 96
--- NOTE | 2024-03-26 08:45 | DI.RAD.S_ITS ---
PROCEDURE: PAIN SI JOINT INJECTION INDICATIONS: Left SI joint injection COMPARISON: None. FINDINGS: Fluoroscopic spot filming was performed to verify placement of spinal needles at the labeled SI joint level(s), as labeled on the films. Appropriate location(s) of the needle tip(s) was confirmed by injection of iodinated contrast. IMPRESSION: Contrast a needle opacification overlying the left SI joint. Dictated by: Jessi Merchant M.D. on 03/26/2024 at 15:18 Approved by: Jessi Merchant M.D. on 03/26/2024 at 15:19
[2024-03-26 08:46] VITALS: BP 129/71; PULSE 81; RESP 16; O2SAT 96
[2024-03-26 08:50] VITALS: BP 118/77; PULSE 95; RESP 16; O2SAT 96
--- NOTE | 2024-03-26 08:50 | P.PCN_ITS ---
Date/Time/Diagnoses Date of procedure: 03/26/24 Time of procedure: 08:45 Procedure Notes Physician: Gonzales Jaime Total Fluoroscopy time (seconds): 8 Total sedation minutes: 0 Procedure in detail & Post-procedure care: Left Sacroiliac Joint Injection Indications: Alexys is presenting for treatment of SI joint dysfunction with low back/buttock pain. Preoperative diagnosis: Left SI joint dysfunction Postoperative diagnosis: Same Focused Examination: Ax3 Mood and affect are normal Vital Signs: VSS Consent: Following review of allergies and potential side effects/complications, including, but not necessarily limited to, infection, allergic reaction, local tissue breakdown, stroke, temporary or permanent nerve injury, paralysis, and possible , the patient indicated that they understood and agreed to proceed.? An informed consent document was signed by the patient, witnessed by a nurse and placed in the patient's chart.? Additionally, other treatment options including medications and physical therapy were reviewed with the patient. All questions were answered. Site was then marked. Anesthesia: Local Position: Prone Monitoring: NIBP, Pulse oximetry, 3 lead EKG Needle used: 22 ga, 3.5 inch spinal Contrast: 2 mL Isovue M-300 Injectate: Dexamethasone 10 mg with 1% lidocaine 2 mL Technique: The skin was prepped with chloraprep and then draped in a sterile fashion. Time out was performed as per protocol. Oxygen applied via NC. Skin and subcutaneous structures of the needle entry site was then infiltrated with 5 mL of lidocaine 1%. Under AP and lateral fluoroscopic control, the spinal needle wa s guided into the left sacroiliac joint. 1 mL contrast was injected and was consistent with intra-articular placement. There was no evidence for intravascular uptake. After negative aspiration, the above-mentioned injectate was then slowly administered and the needle withdrawn. The patient expressed no unusual discomfort or paresthesias during the injection. EBL: less than 1 ml Complications: None Post Procedure: Patient was taken to the recovery and monitored. The patient was provided a Pain Log to continue to record the patient's response to the target- specific procedure prior to the patient's follow-up visit with the referring physician. Patient was stable upon discharge. Detailed post procedure instructions were provided. Patient was asked to call in the event of worsening pain, fever, weakness, numbness or bladder or bowel incontinence.
== END 2024-03-26 08:58 | disposition home or self-care (01) ==
LOC: RAD 08:16
PROVIDERS: Family Provider Family Medicine Sports Medicine; PCP Family Medicine Sports Medicine; Referring Provider Anesthesiology; Visit Provider Anesthesiology
DX: M53.3 Sacrococcygeal disorders, not elsewhere classified (principal)
CPT/HCPCS: 27096; J1100; J3490

== ENCOUNTER 2024-06-10 07:30 | Outpatient (RCR) | payer OTHER, MEDICAID, SELFPAY ==
--- NOTE | 2024-04-28 15:50 | PT.OIE ---
Current Diagnoses Strain of muscle(s) and tendon(s) of the rotator cuff of right shoulder, subsequent encounter (05/01/24) Past Medical History (Last Reviewed 04/29/24 @ 08:50 by Gonzales Jaime MD) Diabetes Irritable bowel syndrome Low back pain Lumbar radiculopathy Lumbar spondylosis No active medical problems SI (sacroiliac) joint dysfunction Tongue cancer Past Surgical History (Last Reviewed 04/29/24 @ 08:50 by Gonzales Jaime MD) Status post hernia repair (10/26/11) Visit Care Team Role Provider Type Yazan Cortés MD Family Provider Non-Staff Primary Care Provider Specialty: Family Practice Address: [address] [place] [address], [place], [address] Email: Daiana Brennan PA-C Attending Provider Non-Staff Referring Provider Specialty: General Surgery Address: [address] [place] [address], [place], [address] Email: Physical Therapy Initial Evaluation PT-OP-A Visit Information Start: 04/28/24 07:22 Freq: Status: Active Protocol: Document 04/28/24 07:23 NM (Rec: 04/28/24 08:19 NM [id number]) Out-Patient Physical Therapy Visit Information Visit Information Visit Type Initial Evaluation Visit Note DOS: 04/07 24 MAX visits Visit Start Time 07:35 Visit Stop Time 08:15 Visit Number 10/17 Evaluation Information Evaluation Date 04/28/24 Precautions Precautions s/p SAD, rotator cuff debridement, arthroscopic biceps tendesis, and distal clavicle excision, DOS: PT-OP-B Current Condition Start: 04/28/24 07:22 Freq: Status: Active Protocol: Document 04/28/24 07:23 NM (Rec: 04/28/24 08:19 NM [id number]) Current Condition History of Current Condition Onset Date DOS: 04/07/24 Current Complaints pain, mobility, strength History of Current Condition Pt presents with R shoulder pain following rotator cuff debridement, arthroscopic biceps tendesis, decompression , and distal clavicle excision on 04/07/24. He states that they repaired the tear in his pec and biceps, but did not do anything to the rotator cuff. Pt saw Dr. Sanchez. He just had his 2 week follow up. Pt reports that he originally injured his arm when he tore the muscle when he was lifting something out of a loft, he had difficulty with controlling the lowering of the heavyier object. This occurred 2 years ago in March 2023. Pt also has concurrent R groin, lower back pain; he had L RACHELE in Oct 2023 but did not complete PT. He has had MRIs of his R shoulder. Pt reports difficulty with driving, push, pull, lift. Pt reports that he tripped over his dog this past Sunday, when he reached out to catch himself on the door post with his R hand. He reports that his pain has changed, now in his lower pec vs the upper pec . Still has pain in armpit, pec. Prior to fall had pain along GHJ, biceps. Pt saw Ramo Gaffney. wants pt to flex/ext elbow, move fingers. 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), driving Prior Functional Status Baseline Function- Work/School unemployed x10 years Current Functional Impairments (Reported) Functional Limitations- ADL's ADLs, grooming Functional Limitations- Other sleeping: side sleeper ( following RACHELE had to lie on R shoulder)- stopped PT following repair, did not complete because felt like re -aggravating it all the time; 3 hrs at time (previously 5-6 hrs) PT-OP-C Subjective Start: 04/28/24 07:22 Freq: Status: Active Protocol: Document 04/28/24 07:23 NM (Rec: 04/28/24 08:19 NM [id number]) OP-PT Subjective Patient Comments Patient Comments Pt consents to participate in PT evaluation Patient Questionnaires Quick Dash- Upper Extremity Quick Dash UE Score 47 or 81.8% OP-PT Pain Assessment Location R shoulder Pain Location Details biceps (anterior shoulder and muscle belly), pectoralis Intensity 8 Scale Used Numeric (0 - 10) Description Aching,Burning,Sharp Description- Other previously 6-7; stinging Frequency Constant Variations/Patterns no numbness/tingling; has neck pain Pain Aggravating Factors Position,Lifting Other Pain Aggravating Factors reaching Pain Alleviating Factors Cold,Medication Other Pain Alleviating Factors just finished 2nd script of oxycodone (3x-1x/day>2x/day) PT-OP-E Functional Tests Start: 04/28/24 07:22 Freq: Status: Active Protocol: Document 04/28/24 07:23 NM (Rec: 04/28/24 08:19 NM [id number]) Functional Tests Apley's Scratch Test Action 1- Left ACJ Action 1- Right N/A Action 2- Left T5 Action 2- Right N/A Action 3- Left T8 Action 3- Right N/A PT-OP-F Manual Assessment Start: 04/28/24 07:22 Freq: Status: Active Protocol: Document 04/28/24 07:23 NM (Rec: 04/28/24 10:15 NM [id number]) Manual Assessments Soft Tissue Assessment Soft Tissue Mobility Assessment Increased restrictions of R upper trap, cervical paraspinals. Bruising and increased tenderness along biceps muscle belly, long head tendon, and pec muscle. Joint Mobility Assessment Joint Mobility Assessment Decreased SC joint, AC joint, and GH joint mobility passively on R shoulder PT-OP-G Mobility & Gait Start: 04/28/24 07:22 Freq: Status: Active Protocol: Document 04/28/24 07:23 NM (Rec: 04/28/24 10:15 NM [id number]) OP Gait Assessment Gait Gait Assistance Required: Independent Distance (Feet) 150 Gait Deviations General Gait Pattern Antalgic Comments Gait Comments Presents with standard R sling . Minimal trunk rotation, decreased stance time on LLE PT-OP-H Neuro Start: 04/28/24 07:22 Freq: Status: Active Protocol: Document 04/28/24 07:23 NM (Rec: 04/28/24 10:15 NM [id number]) Sensation Evaluation Comments Summary Comments RUE equally intact to light touch sensation with LUE PT-OP-J Posture/Palpation/Skin Start: 04/28/24 07:22 Freq: Status: Active Protocol: Document 04/28/24 07:23 NM (Rec: 04/28/24 08:19 NM [id number]) Posture Evaluation Position Standing Head/C-Spine Posture C-Spine Flattened Shoulder Posture (L) Rounded,(R) Rounded,(L) Forward,(R) Forward Scapula Posture (R) Protracted,(R) Winged Arm Posture (L) Neutral,(R) Internally Rotated Pelvis Posture Anteriorly Tilted Palpation Assessment Location R shoulder Palpation Details tenderness, swelling and edema along R arm Skin Assessment Incisional Assessment Incision Appearance/Comments Incisions C/D/I, no signs/ symptoms of infection Bruising: along biceps muscle belly and long head biceps, pectoralis, near nipple No significant swelling along R shoulder except near R upper trapezius PT-OP-K Range of Motion Start: 04/28/24 07:22 Freq: Status: Active Protocol: Document 04/28/24 07:23 NM (Rec: 04/28/24 08:19 NM [id number]) Shoulder Goniometric Range of Motion Shoulder R PROM Testing Position Supine Flexion 80 Abduction 65 L AROM Testing Position Standing Flexion 155 Extension 50 Abduction 166 External Rotation at 90 degrees 80 Abduction External Rotation at 0 degrees Abduction 55 Internal Rotation 70 Elbow/Forearm Range of Motion Elbow/Forearm R PROM ROM Testing Position Supine Elbow Flexion (degrees) 120 Elbow Extension (degrees) 3 PT-OP-M Strength Start: 04/28/24 07:22 Freq: Status: Active Protocol: Document 04/28/24 07:23 NM (Rec: 04/28/24 08:19 NM [id number]) Shoulder Strength Shoulder Manual Muscle Testing Right Comments Strength not tested to allow healing of surgical repair Left Flexion 4+ Good+ Extension 4+ Good+ Abduction (C5) 4+ Good+ Adduction 4+ Good+ External Rotation 4+ Good+ Internal Rotation 4+ Good+ Horizontal Adduction 4 Good Elbow/Forearm Strength Elbow and Forearm Manual Muscle Testing Right Comments Strength not tested to allow healing of surgical repair Left Flexion (C6) 4+ Good+ Extension (C7) 4+ Good+ PT-OP-Q Treatments Start: 04/28/24 07:22 Freq: Status: Active Protocol: Document 04/28/24 07:23 NM (Rec: 04/28/24 10:15 NM [id number]) Therapeutic Exercises Standing Exercises pendulums Standing Exercise Name 1. fwd/bwd, 2. lateral, 3. small circles Side right Reps/Minutes 1 minute ea Comments cued to use body vs swinging arm Self-Care/Home Management Treatment Education Other Education Educated on precautions: no WB on RUE, no pushing/pulling PT-OP-T Assessment and Plan Start: 04/28/24 07:22 Freq: Status: Active Protocol: Document 04/28/24 07:23 NM (Rec: 04/28/24 08:19 NM [id number]) Physical Therapy Assessment Rehab Potential Rehabilitation Potential Fair Evaluation Complexity Number of Personal Factors/Comorbidities 3 or More Number of Body Systems Impaired 3 Clinical Presentation at Evaluation Evolving Impairments Impairments Activity Tolerance,Balance, Functional Activities, Functional Mobility,Gait, Integument,Pain,Posture,ROM, Sensation,Soft Tissue Mobility ,Strength,Transfers Other Concerns Barriers to Rehabilitation Pt had recent fall on R shoulder after repair and 2 week follow up with surgeon on 04/26/24, now with increased pain again in R shoulder Goals Four Impairment quickdash 81.8% impairment Short Term Goal (STG) Pt will report impairment <50% impairment on quickdash in order to demonstrate improved R shoulder mobility and strength for ADLs/IADLs and QOL STG Duration 8 weeks Detention Goal (LTG) Pt will report impairment <25% impairment on quickdash in order to demonstrate improved R shoulder mobility and strength for ADLs/IADLs and QOL LTG Duration 12 weeks Three Impairment ADLs/IADLs Short Term Goal (STG) Pt will report that he is able to perform ADLs/IADLs without increase in baseline pain and without limitations due to R shoulder mobility STG Duration 8 weeks Detention Goal (LTG) Pt will report that he is able to perform ADLs/IADLs including driving with R arm without increase in baseline pain or limitation, if appropriate per MD LTG Duration 12 weeks Two Impairment strength Short Term Goal (STG) Pt will improve R global shoulder strength to at least 4-/5 MMT in order to demonstrate improved strength for reaching and ADLs STG Duration 8 weeks Detention Goal (LTG) Pt will improve R global shoulder strength to at least 4+/5 MMT in order to demonstrate improved strength for reaching and ADLs LTG Duration 12 weeks One Impairment R shoulder ROM limited due to precautions Short Term Goal (STG) Pt will present with R shoulder flexion and abduction AROM to at least 90 deg in order to demonstrate improved mobility for reaching and dressing STG Duration 6 weeks Anatomy Teacher Goal (LTG) Pt will present with R shoulder flexion and abduction AROM to at least 150 deg in order to demonstrate improved mobility for reaching and dressing LTG Duration 12 weeks Assessment Summary Assessment Pt is a 58 y.o. male presenting s/p rotator cuff debridement, arthroscopic biceps tenodesis, decompression, distal clavicle excision, and extensive debridement of humeral head/ scapula on 04/07/24. He is currently 3 weeks post op. Pt still wearing a sling intermittently. Currently his pain levels are poorly managed , and he reports that his pain levels have worsened since falling onto a door frame while bearing weight on his R arm on 04/26/24. Pt has impairments in R shoulder ROM, strength, pain management, activity tolerance, ability to perform ADLs/IADLs, and sleeping. His R shoulder PROM is limited due to pain. Pt's R shoulder strength not formally tested due to repair. No signs or symptoms of infection; however, pt does have significant bruising along R biceps muscle belly, over proximal biceps tendon, and along his R pectoralis muscle. He also presents with increased tenderness at previously listed areas along with soft tissue tightness along his R cervical paraspinals. PT educated pt on exam findings and plan of care, recommending pt follow up with referring surgeon BERTRAM to determine integrity of repair following fall on 04/26. Pt would benefit from skilled PT for R shoulder mobility and strengthening per protocol once cleared by MD to return in order to improve ability to perform ADLs/IADLs with R hand and improve QOL. Physical Therapy Plan Frequency and Duration Frequency of Treatment 1-2x/wk Duration of treatment (weeks) 12 Plan of Care Start Date 04/28/24 Plan of Care End Date 07/25/24 Therapeutic Interventions Therapeutic Interventions Coordination Training,Gait Training,Home Exercise Program ,Joint Mobilizations,Manual Therapy,Neuromuscular Re- education,Orthotic/Prosthetic Management,Patient/Caregiver Education,Self-Care/Home Management,Sensory Integration ,Soft Tissue Mobilization, Taping,Therapeutic Activities, Therapeutic Exercises Modalities Cold Pack/Ice Massage,Electric Stimulation,Hot Packs, Ultrasound Next Visit Focus/Plan Next Note Type Treatment Note Next Visit Plan Progress per protocol, start w / phase I; do not progress to phase II PROM>AAROM, isometrics, scapular and glenohumeral mobilization, pendulums/cane/ abhishek no bicep/tricep due to tenodesis until clarified with
--- NOTE | 2024-04-28 15:50 | PT.OIE ---
Current Diagnoses Stiffness of right shoulder, not elsewhere classified (05/01/24) Weakness (05/01/24) Strain of muscle(s) and tendon(s) of the rotator cuff of right shoulder, subsequent encounter (05/01/24) Past Medical History (Last Reviewed 04/29/24 @ 08:50 by Gonzales Jaime MD) Diabetes Irritable bowel syndrome Low back pain Lumbar radiculopathy Lumbar spondylosis No active medical problems SI (sacroiliac) joint dysfunction Tongue cancer Past Surgical History (Last Reviewed 04/29/24 @ 08:50 by Gonzales Jaime MD) Status post hernia repair (10/26/11) Visit Care Team Role Provider Type Yazan Cortés MD Family Provider Non-Staff Primary Care Provider Specialty: Family Practice Address: [address] [place] [address], [id number] Email: Daiana Brennan PA-C Attending Provider Non-Staff Referring Provider Specialty: General Surgery Address: [address] [place] [address], [id number] Email: Physical Therapy Initial Evaluation PT-OP-A Visit Information Start: 04/28/24 07:22 Freq: Status: Active Protocol: Document 04/28/24 07:23 NM (Rec: 04/28/24 08:19 NM [id number]) Out-Patient Physical Therapy Visit Information Visit Information Visit Type Initial Evaluation Visit Note DOS: 04/07 24 MAX visits Visit Start Time 07:35 Visit Stop Time 08:15 Visit Number 10/17 Evaluation Information Evaluation Date 04/28/24 Precautions Precautions s/p SAD, rotator cuff debridement, arthroscopic biceps tendesis, and distal clavicle excision, DOS: PT-OP-B Current Condition Start: 04/28/24 07:22 Freq: Status: Active Protocol: Document 04/28/24 07:23 NM (Rec: 04/28/24 08:19 NM [id number]) Current Condition History of Current Condition Onset Date DOS: 04/07/24 Current Complaints pain, mobility, strength History of Current Condition Pt presents with R shoulder pain following rotator cuff debridement, arthroscopic biceps tendesis, decompression , and distal clavicle excision on 04/07/24. He states that they repaired the tear in his pec and biceps, but did not do anything to the rotator cuff. Pt saw Dr. Sanchez. He just had his 2 week follow up. Pt reports that he originally injured his arm when he tore the muscle when he was lifting something out of a loft, he had difficulty with controlling the lowering of the heavyier object. This occurred 2 years ago in March 2023. Pt also has concurrent R groin, lower back pain; he had L RACHELE in Oct 2023 but did not complete PT. He has had MRIs of his R shoulder. Pt reports difficulty with driving, push, pull, lift. Pt reports that he tripped over his dog this past Sunday, when he reached out to catch himself on the door post with his R hand. He reports that his pain has changed, now in his lower pec vs the upper pec . Still has pain in armpit, pec. Prior to fall had pain along GHJ, biceps. Pt saw Ramo Gaffney. wants pt to flex/ext elbow, move fingers. 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 Prior Functional Status Baseline Function- Work/School unemployed x10 years Current Functional Impairments (Reported) Functional Limitations- ADL's ADLs, grooming Functional Limitations- Other sleeping: side sleeper ( following RACHELE had to lie on R shoulder)- stopped PT following repair, did not complete because felt like re -aggravating it all the time; 3 hrs at time (previously 5-6 hrs) PT-OP-C Subjective Start: 04/28/24 07:22 Freq: Status: Active Protocol: Document 04/28/24 07:23 NM (Rec: 04/28/24 08:19 NM [id number]) OP-PT Subjective Patient Comments Patient Comments Pt consents to participate in PT evaluation Patient Questionnaires Quick Dash- Upper Extremity Quick Dash UE Score 47 or 81.8% OP-PT Pain Assessment Location R shoulder Pain Location Details biceps (anterior shoulder and muscle belly), pectoralis Intensity 8 Scale Used Numeric (0 - 10) Description Aching,Burning,Sharp Description- Other previously 6-7; stinging Frequency Constant Variations/Patterns no numbness/tingling; has neck pain Pain Aggravating Factors Position,Lifting Other Pain Aggravating Factors reaching Pain Alleviating Factors Cold,Medication Other Pain Alleviating Factors just finished 2nd script of oxycodone (3x-1x/day>2x/day) PT-OP-E Functional Tests Start: 04/28/24 07:22 Freq: Status: Active Protocol: Document 04/28/24 07:23 NM (Rec: 04/28/24 08:19 NM [id number]) Functional Tests Apley's Scratch Test Action 1- Left ACJ Action 1- Right N/A Action 2- Left T5 Action 2- Right N/A Action 3- Left T8 Action 3- Right N/A PT-OP-F Manual Assessment Start: 04/28/24 07:22 Freq: Status: Active Protocol: Document 04/28/24 07:23 NM (Rec: 04/28/24 10:15 NM [id number]) Manual Assessments Soft Tissue Assessment Soft Tissue Mobility Assessment Increased restrictions of R upper trap, cervical paraspinals. Bruising and increased tenderness along biceps muscle belly, long head tendon, and pec muscle. Joint Mobility Assessment Joint Mobility Assessment Decreased SC joint, AC joint, and GH joint mobility passively on R shoulder PT-OP-G Mobility & Gait Start: 04/28/24 07:22 Freq: Status: Active Protocol: Document 04/28/24 07:23 NM (Rec: 04/28/24 10:15 NM [id number]) OP Gait Assessment Gait Gait Assistance Required: Independent Distance (Feet) 150 Gait Deviations General Gait Pattern Antalgic Comments Gait Comments Presents with standard R sling . Minimal trunk rotation, decreased stance time on LLE PT-OP-H Neuro Start: 04/28/24 07:22 Freq: Status: Active Protocol: Document 04/28/24 07:23 NM (Rec: 04/28/24 10:15 NM [id number]) Sensation Evaluation Comments Summary Comments RUE equally intact to light touch sensation with LUE PT-OP-J Posture/Palpation/Skin Start: 04/28/24 07:22 Freq: Status: Active Protocol: Document 04/28/24 07:23 NM (Rec: 04/28/24 08:19 NM [id number]) Posture Evaluation Position Standing Head/C-Spine Posture C-Spine Flattened Shoulder Posture (L) Rounded,(R) Rounded,(L) Forward,(R) Forward Scapula Posture (R) Protracted,(R) Winged Arm Posture (L) Neutral,(R) Internally Rotated Pelvis Posture Anteriorly Tilted Palpation Assessment Location R shoulder Palpation Details tenderness, swelling and edema along R arm Skin Assessment Incisional Assessment Incision Appearance/Comments Incisions C/D/I, no signs/ symptoms of infection Bruising: along biceps muscle belly and long head biceps, pectoralis, near nipple No significant swelling along R shoulder except near R upper trapezius PT-OP-K Range of Motion Start: 04/28/24 07:22 Freq: Status: Active Protocol: Document 04/28/24 07:23 NM (Rec: 04/28/24 08:19 NM [id number]) Shoulder Goniometric Range of Motion Shoulder R PROM Testing Position Supine Flexion 80 Abduction 65 L AROM Testing Position Standing Flexion 155 Extension 50 Abduction 166 External Rotation at 90 degrees 80 Abduction External Rotation at 0 degrees Abduction 55 Internal Rotation 70 Elbow/Forearm Range of Motion Elbow/Forearm R PROM ROM Testing Position Supine Elbow Flexion (degrees) 120 Elbow Extension (degrees) 3 PT-OP-M Strength Start: 04/28/24 07:22 Freq: Status: Active Protocol: Document 04/28/24 07:23 NM (Rec: 04/28/24 08:19 NM [id number]) Shoulder Strength Shoulder Manual Muscle Testing Right Comments Strength not tested to allow healing of surgical repair Left Flexion 4+ Good+ Extension 4+ Good+ Abduction (C5) 4+ Good+ Adduction 4+ Good+ External Rotation 4+ Good+ Internal Rotation 4+ Good+ Horizontal Adduction 4 Good Elbow/Forearm Strength Elbow and Forearm Manual Muscle Testing Right Comments Strength not tested to allow healing of surgical repair Left Flexion (C6) 4+ Good+ Extension (C7) 4+ Good+ PT-OP-Q Treatments Start: 04/28/24 07:22 Freq: Status: Active Protocol: Document 04/28/24 07:23 NM (Rec: 04/28/24 10:15 NM [id number]) Therapeutic Exercises Standing Exercises pendulums Standing Exercise Name 1. fwd/bwd, 2. lateral, 3. small circles Side right Reps/Minutes 1 minute ea Comments cued to use body vs swinging arm Self-Care/Home Management Treatment Education Other Education Educated on precautions: no WB on RUE, no pushing/pulling PT-OP-T Assessment and Plan Start: 04/28/24 07:22 Freq: Status: Active Protocol: Document 08/05/24 07:23 NM (Rec: 04/28/24 08:19 NM [id number]) Physical Therapy Assessment Rehab Potential Rehabilitation Potential Fair Evaluation Complexity Number of Personal Factors/Comorbidities 3 or More Number of Body Systems Impaired 3 Clinical Presentation at Evaluation Evolving Impairments Impairments Activity Tolerance,Balance, Functional Activities, Functional Mobility,Gait, Integument,Pain,Posture,ROM, Sensation,Soft Tissue Mobility ,Strength,Transfers Other Concerns Barriers to Rehabilitation Pt had recent fall on R shoulder after repair and 2 week follow up with surgeon on 04/26/24, now with increased pain again in R shoulder Goals Four Impairment quickdash 81.8% impairment Short Term Goal (STG) Pt will report impairment <50% impairment on quickdash in order to demonstrate improved R shoulder mobility and strength for ADLs/IADLs and QOL STG Duration 8 weeks Jail Goal (LTG) Pt will report impairment <25% impairment on quickdash in order to demonstrate improved R shoulder mobility and strength for ADLs/IADLs and QOL LTG Duration 12 weeks Three Impairment ADLs/IADLs Short Term Goal (STG) Pt will report that he is able to perform ADLs/IADLs without increase in baseline pain and without limitations due to R shoulder mobility STG Duration 8 weeks Dag Coater Goal (LTG) Pt will report that he is able to perform ADLs/IADLs including driving with R arm without increase in baseline pain or limitation, if appropriate per MD LTG Duration 12 weeks Two Impairment strength Short Term Goal (STG) Pt will improve R global shoulder strength to at least 4-/5 MMT in order to demonstrate improved strength for reaching and ADLs STG Duration 8 weeks Jail Goal (LTG) Pt will improve R global shoulder strength to at least 4+/5 MMT in order to demonstrate improved strength for reaching and ADLs LTG Duration 12 weeks One Impairment R shoulder ROM limited due to precautions Short Term Goal (STG) Pt will present with R shoulder flexion and abduction AROM to at least 90 deg in order to demonstrate improved mobility for reaching and dressing STG Duration 6 weeks Jail Goal (LTG) Pt will present with R shoulder flexion and abduction AROM to at least 150 deg in order to demonstrate improved mobility for reaching and dressing LTG Duration 12 weeks Assessment Summary Assessment Pt is a 58 y.o. male presenting s/p rotator cuff debridement, arthroscopic biceps tenodesis, decompression, distal clavicle excision, and extensive debridement of humeral head/ scapula on 04/07/24. He is currently 3 weeks post op. Pt still wearing a sling intermittently. Currently his pain levels are poorly managed , and he reports that his pain levels have worsened since falling onto a door frame while bearing weight on his R arm on 04/26/24. Pt has impairments in R shoulder ROM, strength, pain management, activity tolerance, ability to perform ADLs/IADLs, and sleeping. His R shoulder PROM is limited due to pain. Pt's R shoulder strength not formally tested due to repair. No signs or symptoms of infection; however, pt does have significant bruising along R biceps muscle belly, over proximal biceps tendon, and along his R pectoralis muscle. He also presents with increased tenderness at previously listed areas along with soft tissue tightness along his R cervical paraspinals. PT educated pt on exam findings and plan of care, recommending pt follow up with referring surgeon BERTRAM to determine integrity of repair following fall on 04/26. Pt would benefit from skilled PT for R shoulder mobility and strengthening per protocol once cleared by MD to return in order to improve ability to perform ADLs/IADLs with R hand and improve QOL. Physical Therapy Plan Frequency and Duration Frequency of Treatment 1-2x/wk Duration of treatment (weeks) 12 Plan of Care Start Date 04/28/24 Plan of Care End Date 07/25/24 Therapeutic Interventions Therapeutic Interventions Coordination Training,Gait Training,Home Exercise Program ,Joint Mobilizations,Manual Therapy,Neuromuscular Re- education,Orthotic/Prosthetic Management,Patient/Caregiver Education,Self-Care/Home Management,Sensory Integration ,Soft Tissue Mobilization, Taping,Therapeutic Activities, Therapeutic Exercises Modalities Cold Pack/Ice Massage,Electric Stimulation,Hot Packs, Ultrasound Next Visit Focus/Plan Next Note Type Treatment Note Next Visit Plan Progress per protocol, start w / phase I; do not progress to phase II PROM>AAROM, isometrics, scapular and glenohumeral mobilization, pendulums/cane/ abhishek no bicep/tricep due to tenodesis until clarified with
--- NOTE | 2024-04-28 16:41 | PT-OP ANOTE ---
Addendum entered and electronically signed by Melissa Keita, PT 04/30/24 16:08: Spoke to Shalini on 04/[address] Sanchez sent pt a message on 04/30 following radiographs from Sunday stating: Dr. Sanchez is ok with pt resuming PT Original Note: PT called Denisha Sanchez's office to inform of pt fall and concern about integrity of repair. PT spoke with Monica who states that pt was instructed to go to urgent care for xrays of shoulder, then surgeon will review and then possibly see pt in clinic tomorrow (04/29) depending on xray results. PT asked for surgeon or PA to follow up with PT regarding of pt will need to be on hold for PT for further assessment or if he will be allowed to return to PT at following appt on 05/01.
--- NOTE | 2024-05-01 15:24 | PT.OTN ---
Current Diagnoses Stiffness of right shoulder, not elsewhere classified (05/01/24) Weakness (05/01/24) Strain of muscle(s) and tendon(s) of the rotator cuff of right shoulder, subsequent encounter (05/01/24) Physical Therapy Treatment Note PT-OP-A Visit Information Start: 04/28/24 07:22 Freq: Status: Active Protocol: Document 05/01/24 07:32 NM (Rec: 05/01/24 08:18 NM [id number]) Out-Patient Physical Therapy Visit Information Visit Information Visit Type Treatment Note Visit Note DOS: 04/07 24 MAX visits Visit Start Time 07:33 Visit Stop Time 08:13 Visit Number 11/17 Evaluation Information Evaluation Date 04/28/24 Precautions Precautions s/p SAD, rotator cuff debridement, arthroscopic biceps tendesis, and distal clavicle excision, DOS: PT-OP-B Current Condition Start: 04/28/24 07:22 Freq: Status: Active Protocol: Document 04/28/24 07:23 NM (Rec: 04/28/24 08:19 NM [id number]) Current Condition History of Current Condition Onset Date DOS: 04/07/24 Current Complaints pain, mobility, strength History of Current Condition Pt presents with R shoulder pain following rotator cuff debridement, arthroscopic biceps tendesis, decompression , and distal clavicle excision on 04/07/24. He states that they repaired the tear in his pec and biceps, but did not do anything to the rotator cuff. Pt saw Dr. Sanchez. He just had his 2 week follow up. Pt reports that he originally injured his arm when he tore the muscle when he was lifting something out of a loft, he had difficulty with controlling the lowering of the heavyier object. This occurred 2 years ago in March 2023. Pt also has concurrent R groin, lower back pain; he had L RACHELE in Oct 2023 but did not complete PT. He has had MRIs of his R shoulder. Pt reports difficulty with driving, push, pull, lift. Pt reports that he tripped over his dog this past Sunday, when he reached out to catch himself on the door post with his R hand. He reports that his pain has changed, now in his lower pec vs the upper pec . Still has pain in armpit, pec. Prior to fall had pain along GHJ, biceps. Pt saw Ramo Gaffney. wants pt to flex/ext elbow, move fingers. 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/riding mower), driving Prior Functional Status Baseline Function- Work/School unemployed x10 years Current Functional Impairments (Reported) Functional Limitations- ADL's ADLs, grooming Functional Limitations- Other sleeping: side sleeper ( following RACHELE had to lie on R shoulder)- stopped PT following repair, did not complete because felt like re -aggravating it all the time; 3 hrs at time (previously 5-6 hrs) PT-OP-C Subjective Start: 04/28/24 07:22 Freq: Status: Active Protocol: Document 05/01/24 07:32 NM (Rec: 05/01/24 08:18 NM [id number]) OP-PT Subjective Patient Comments Patient Comments Pt reports pain levels are better today, but states still has difficulty moving his arm . Does not present in sling. States R shoulder is a 4/10. Ok to return to PT per Dr. Sanchez message. PT-OP-E Functional Tests Start: 04/28/24 07:22 Freq: Status: Active Protocol: Document 04/28/24 07:23 NM (Rec: 04/28/24 08:19 NM [id number]) Functional Tests Apley's Scratch Test Action 1- Left ACJ Action 1- Right N/A Action 2- Left T5 Action 2- Right N/A Action 3- Left T8 Action 3- Right N/A PT-OP-F Manual Assessment Start: 04/28/24 07:22 Freq: Status: Active Protocol: Document 04/28/24 07:23 NM (Rec: 04/28/24 10:15 NM [id number]) Manual Assessments Soft Tissue Assessment Soft Tissue Mobility Assessment Increased restrictions of R upper trap, cervical paraspinals. Bruising and increased tenderness along biceps muscle belly, long head tendon, and pec muscle. Joint Mobility Assessment Joint Mobility Assessment Decreased SC joint, AC joint, and GH joint mobility passively on R shoulder PT-OP-G Mobility & Gait Start: 04/28/24 07:22 Freq: Status: Active Protocol: Document 04/28/24 07:23 NM (Rec: 04/28/24 10:15 NM [id number]) OP Gait Assessment Gait Gait Assistance Required: Independent Distance (Feet) 150 Gait Deviations General Gait Pattern Antalgic Comments Gait Comments Presents with standard R sling . Minimal trunk rotation, decreased stance time on LLE PT-OP-H Neuro Start: 04/28/24 07:22 Freq: Status: Active Protocol: Document 04/28/24 07:23 NM (Rec: 04/28/24 10:15 NM [id number]) Sensation Evaluation Comments Summary Comments RUE equally intact to light touch sensation with LUE PT-OP-J Posture/Palpation/Skin Start: 04/28/24 07:22 Freq: Status: Active Protocol: Document 04/28/24 07:23 NM (Rec: 04/28/24 08:19 NM [id number]) Posture Evaluation Position Standing Head/C-Spine Posture C-Spine Flattened Shoulder Posture (L) Rounded,(R) Rounded,(L) Forward,(R) Forward Scapula Posture (R) Protracted,(R) Winged Arm Posture (L) Neutral,(R) Internally Rotated Pelvis Posture Anteriorly Tilted Palpation Assessment Location R shoulder Palpation Details tenderness, swelling and edema along R arm Skin Assessment Incisional Assessment Incision Appearance/Comments Incisions C/D/I, no signs/ symptoms of infection Bruising: along biceps muscle belly and long head biceps, pectoralis, near nipple No significant swelling along R shoulder except near R upper trapezius PT-OP-K Range of Motion Start: 04/28/24 07:22 Freq: Status: Active Protocol: Document 04/28/24 07:23 NM (Rec: 04/28/24 08:19 NM [id number]) Shoulder Goniometric Range of Motion Shoulder R PROM Testing Position Supine Flexion 80 Abduction 65 L AROM Testing Position Standing Flexion 155 Extension 50 Abduction 166 External Rotation at 90 degrees 80 Abduction External Rotation at 0 degrees Abduction 55 Internal Rotation 70 Elbow/Forearm Range of Motion Elbow/Forearm R PROM ROM Testing Position Supine Elbow Flexion (degrees) 120 Elbow Extension (degrees) 3 PT-OP-M Strength Start: 04/28/24 07:22 Freq: Status: Active Protocol: Document 04/28/24 07:23 NM (Rec: 04/28/24 08:19 NM [id number]) Shoulder Strength Shoulder Manual Muscle Testing Right Comments Strength not tested to allow healing of surgical repair Left Flexion 4+ Good+ Extension 4+ Good+ Abduction (C5) 4+ Good+ Adduction 4+ Good+ External Rotation 4+ Good+ Internal Rotation 4+ Good+ Horizontal Adduction 4 Good Elbow/Forearm Strength Elbow and Forearm Manual Muscle Testing Right Comments Strength not tested to allow healing of surgical repair Left Flexion (C6) 4+ Good+ Extension (C7) 4+ Good+ PT-OP-Q Treatments Start: 04/28/24 07:22 Freq: Status: Active Protocol: Document 05/01/24 07:32 NM (Rec: 05/01/24 08:18 NM [id number]) Therapeutic Exercises Sitting Exercises scapular retraction/adduction Sitting Exercise Name 1. retraction, 2. elevation > depression isometric Side bilateral Reps/Minutes 10x5 ea Comments cued upright posture throughout Standing Exercises pendulums Standing Exercise Name 1. fwd/bwd, 2. lateral, 3. small circles Side right Reps/Minutes 1 minute ea Comments cued to use body vs swinging arm Manual Therapy Treatment Consent Patient gave verbal consent for manual Yes treatment Soft Tissue Mobilization cervical spine Body Location UT, LS, paraspinals Mobilization Type Rolling Intensity/Depth Superficial Body Position Sidelying Comments Increased restriction of R UT, LS, cervical paraspinals. Palpable relaxation following gentle rolling. Monitored for pain R shoulder/periscapulars Body Location rhomboids, lat Mobilization Type Rolling Intensity/Depth Superficial Body Position Sidelying Comments Tightness and mild tenderness along medial scapular border especially along rhomboids, reduced with gentle rolling. Avoid healing incisions Joint Mobilizations R GHJ Direction post, inf Grade II Body Position Hooklying Reps/Duration 4x30 ea Comments Progressed from grade II to grade III. Pt reports feels better with mobilization. Demos empty end feel due to subacromial pain with elevation >75 deg in flex and abd R scapulothoracic Direction elevation/depression, rotation , retraction/protraction Grade II Body Position Sidelying Reps/Duration 1x10 ea Comments positioned into slight scapular retraction, monitored for pain. Good elevation and retraction, minimal rotation and depression Manual Techniques PROM Body Location R GHJ Body Position Hooklying Reps/Duration 10 ea with brief, gentle pause at end range Comments Monitored for pain. Flexion 75 deg, abduction 65 deg, ER to neutral. Pt has pain with passive eccentric lowering, but reduced with gentle isometric ext into PT hand with lowering PT-OP-T Assessment and Plan Start: 04/28/24 07:22 Freq: Status: Active Protocol: Document 05/01/24 07:32 NM (Rec: 05/01/24 08:18 NM [id number]) Physical Therapy Assessment Goals Four Impairment quickdash 81.8% impairment Short Term Goal (STG) Pt will report impairment <50% impairment on quickdash in order to demonstrate improved R shoulder mobility and strength for ADLs/IADLs and QOL STG Duration 8 weeks Custodial Goal (LTG) Pt will report impairment <25% impairment on quickdash in order to demonstrate improved R shoulder mobility and strength for ADLs/IADLs and QOL LTG Duration 12 weeks Three Impairment ADLs/IADLs Short Term Goal (STG) Pt will report that he is able to perform ADLs/IADLs without increase in baseline pain and without limitations due to R shoulder mobility STG Duration 8 weeks Custodial Goal (LTG) Pt will report that he is able to perform ADLs/IADLs including driving with R arm without increase in baseline pain or limitation, if appropriate per MD LTG Duration 12 weeks Two Impairment strength Short Term Goal (STG) Pt will improve R global shoulder strength to at least 4-/5 MMT in order to demonstrate improved strength for reaching and ADLs STG Duration 8 weeks Custodial Goal (LTG) Pt will improve R global shoulder strength to at least 4+/5 MMT in order to demonstrate improved strength for reaching and ADLs LTG Duration 12 weeks One Impairment R shoulder ROM limited due to precautions Short Term Goal (STG) Pt will present with R shoulder flexion and abduction AROM to at least 90 deg in order to demonstrate improved mobility for reaching and dressing STG Duration 6 weeks Profiler Operator Goal (LTG) Pt will present with R shoulder flexion and abduction AROM to at least 150 deg in order to demonstrate improved mobility for reaching and dressing LTG Duration 12 weeks Assessment Summary Assessment Pt tolerated session fair, reporting increase in R shoulder pain following session. Session emphasis on R shoulder mobility via PROM and scapular mobilizations. Pt has limitations in upward scapular rotation and depression. He is able to perform gentle scapular isometrics with cueing to increase periscapular activation. Pt responds well to joint mobilizations of R glenohumeral joint. However, continues to have subacromial pain with PROM that is limited to <75 deg, even following joint mobilization. Pt demos increased anterior humeral head translation that likely influences pain symptoms. Good response to soft tissue mobilization. Pt would benefit from skilled PT for R shoulder mobility and strengthening per protocol in order to improve activity tolerance and ability to perform ADLs. Physical Therapy Plan Frequency and Duration Frequency of Treatment 1-2x/wk Duration of treatment (weeks) 12 Plan of Care Start Date 04/28/24 Plan of Care End Date 07/25/24 Therapeutic Interventions Therapeutic Interventions Coordination Training,Gait Training,Home Exercise Program ,Joint Mobilizations,Manual Therapy,Neuromuscular Re- education,Orthotic/Prosthetic Management,Patient/Caregiver Education,Self-Care/Home Management,Sensory Integration ,Soft Tissue Mobilization, Taping,Therapeutic Activities, Therapeutic Exercises Modalities Cold Pack/Ice Massage,Electric Stimulation,Hot Packs, Ultrasound Next Visit Focus/Plan Next Note Type Treatment Note Next Visit Plan Progress per protocol, start w / phase I; do not progress to phase II until complete phase 1 PROM>AAROM, isometrics, scapular and glenohumeral mobilization, pendulums/cane/ abhishek no bicep/tricep due to tenodesis until clarified with
--- NOTE | 2024-05-05 12:17 | PT.OTN ---
Current Diagnoses Stiffness of right shoulder, not elsewhere classified (05/05/24) Weakness (05/05/24) Strain of muscle(s) and tendon(s) of the rotator cuff of right shoulder, subsequent encounter (05/05/24) Physical Therapy Treatment Note PT-OP-A Visit Information Start: 04/28/24 07:22 Freq: Status: Active Protocol: Document 05/05/24 07:29 NM (Rec: 05/05/24 08:18 NM [id number]) Out-Patient Physical Therapy Visit Information Visit Information Visit Type Treatment Note Visit Note DOS: 04/07 24 MAX visits Visit Start Time 07:30 Visit Stop Time 08:15 Visit Number 12/15 Evaluation Information Evaluation Date 04/28/24 Precautions Precautions s/p SAD, rotator cuff debridement, arthroscopic biceps tendesis, and distal clavicle excision, DOS: PT-OP-B Current Condition Start: 04/28/24 07:22 Freq: Status: Active Protocol: Document 04/28/24 07:23 NM (Rec: 04/28/24 08:19 NM [id number]) Current Condition History of Current Condition Onset Date DOS: 04/07/24 Current Complaints pain, mobility, strength History of Current Condition Pt presents with R shoulder pain following rotator cuff debridement, arthroscopic biceps tendesis, decompression , and distal clavicle excision on 04/07/24. He states that they repaired the tear in his pec and biceps, but did not do anything to the rotator cuff. Pt saw Dr. Sanchez. He just had his 2 week follow up. Pt reports that he originally injured his arm when he tore the muscle when he was lifting something out of a loft, he had difficulty with controlling the lowering of the heavyier object. This occurred 2 years ago in March 2023. Pt also has concurrent R groin, lower back pain; he had L RACHELE in Oct 2023 but did not complete PT. He has had MRIs of his R shoulder. Pt reports difficulty with driving, push, pull, lift. Pt reports that he tripped over his dog this past Sunday, when he reached out to catch himself on the door post with his R hand. He reports that his pain has changed, now in his lower pec vs the upper pec . Still has pain in armpit, pec. Prior to fall had pain along GHJ, biceps. Pt saw Ramo Gaffney. wants pt to flex/ext elbow, move fingers. 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 Prior Functional Status Baseline Function- Work/School unemployed x10 years Current Functional Impairments (Reported) Functional Limitations- ADL's ADLs, grooming Functional Limitations- Other sleeping: side sleeper ( following RACHELE had to lie on R shoulder)- stopped PT following repair, did not complete because felt like re -aggravating it all the time; 3 hrs at time (previously 5-6 hrs) PT-OP-C Subjective Start: 04/28/24 07:22 Freq: Status: Active Protocol: Document 05/05/24 07:29 NM (Rec: 05/05/24 08:18 NM [id number]) OP-PT Subjective Patient Comments Patient Comments Pt reports that he felt pretty good after last session for the rest of but has been pretty sore over the rest fo the weekend. States 5/10 R shoulder pain. Pt reports that he fractured T7-8 several years ago and pinched nerves, which aggravated again over weekend with scapular retraction isometrics; states has not started yet but feels like it might; would PT-OP-E Functional Tests Start: 04/28/24 07:22 Freq: Status: Active Protocol: Document 04/28/24 07:23 NM (Rec: 04/28/24 08:19 NM [id number]) Functional Tests Apley's Scratch Test Action 1- Left ACJ Action 1- Right N/A Action 2- Left T5 Action 2- Right N/A Action 3- Left T8 Action 3- Right N/A PT-OP-F Manual Assessment Start: 04/28/24 07:22 Freq: Status: Active Protocol: Document 04/28/24 07:23 NM (Rec: 04/28/24 10:15 NM [id number]) Manual Assessments Soft Tissue Assessment Soft Tissue Mobility Assessment Increased restrictions of R upper trap, cervical paraspinals. Bruising and increased tenderness along biceps muscle belly, long head tendon, and pec muscle. Joint Mobility Assessment Joint Mobility Assessment Decreased SC joint, AC joint, and GH joint mobility passively on R shoulder PT-OP-G Mobility & Gait Start: 04/28/24 07:22 Freq: Status: Active Protocol: Document 04/28/24 07:23 NM (Rec: 04/28/24 10:15 NM [id number]) OP Gait Assessment Gait Gait Assistance Required: Independent Distance (Feet) 150 Gait Deviations General Gait Pattern Antalgic Comments Gait Comments Presents with standard R sling . Minimal trunk rotation, decreased stance time on LLE PT-OP-H Neuro Start: 04/28/24 07:22 Freq: Status: Active Protocol: Document 04/28/24 07:23 NM (Rec: 04/28/24 10:15 NM [id number]) Sensation Evaluation Comments Summary Comments RUE equally intact to light touch sensation with LUE PT-OP-J Posture/Palpation/Skin Start: 04/28/24 07:22 Freq: Status: Active Protocol: Document 04/28/24 07:23 NM (Rec: 04/28/24 08:19 NM [id number]) Posture Evaluation Position Standing Head/C-Spine Posture C-Spine Flattened Shoulder Posture (L) Rounded,(R) Rounded,(L) Forward,(R) Forward Scapula Posture (R) Protracted,(R) Winged Arm Posture (L) Neutral,(R) Internally Rotated Pelvis Posture Anteriorly Tilted Palpation Assessment Location R shoulder Palpation Details tenderness, swelling and edema along R arm Skin Assessment Incisional Assessment Incision Appearance/Comments Incisions C/D/I, no signs/ symptoms of infection Bruising: along biceps muscle belly and long head biceps, pectoralis, near nipple No significant swelling along R shoulder except near R upper trapezius PT-OP-K Range of Motion Start: 04/28/24 07:22 Freq: Status: Active Protocol: Document 04/28/24 07:23 NM (Rec: 04/28/24 08:19 NM [id number]) Shoulder Goniometric Range of Motion Shoulder R PROM Testing Position Supine Flexion 80 Abduction 65 L AROM Testing Position Standing Flexion 155 Extension 50 Abduction 166 External Rotation at 90 degrees 80 Abduction External Rotation at 0 degrees Abduction 55 Internal Rotation 70 Elbow/Forearm Range of Motion Elbow/Forearm R PROM ROM Testing Position Supine Elbow Flexion (degrees) 120 Elbow Extension (degrees) 3 PT-OP-M Strength Start: 04/28/24 07:22 Freq: Status: Active Protocol: Document 04/28/24 07:23 NM (Rec: 04/28/24 08:19 NM [id number]) Shoulder Strength Shoulder Manual Muscle Testing Right Comments Strength not tested to allow healing of surgical repair Left Flexion 4+ Good+ Extension 4+ Good+ Abduction (C5) 4+ Good+ Adduction 4+ Good+ External Rotation 4+ Good+ Internal Rotation 4+ Good+ Horizontal Adduction 4 Good Elbow/Forearm Strength Elbow and Forearm Manual Muscle Testing Right Comments Strength not tested to allow healing of surgical repair Left Flexion (C6) 4+ Good+ Extension (C7) 4+ Good+ PT-OP-Q Treatments Start: 04/28/24 07:22 Freq: Status: Active Protocol: Document 05/05/24 07:29 NM (Rec: 05/05/24 08:18 NM [id number]) Therapeutic Exercises Sitting Exercises pulleys Sitting Exercise Name trialed in PT: flexion Side right Resistance AAROM Equipment Used L assisting R Reps/Minutes 2 min Comments limited ROM up to 70 deg Standing Exercises isometrics Standing Exercise Name shldr: 1. ADD, 2. ABD, 3.ext ( to neutral), 4. ER, 5. IR, 6. flex Side right Equipment Used towel roll btwn arm/body, pillow at wall Reps/Minutes 10x5 ea Comments PT hand for ABD; cued pain free jong, correct execution pendulums Standing Exercise Name 1. fwd/bwd, 2. lateral, 3. small circles Side right Reps/Minutes 10 btwn sets of jong Comments cued to use body vs swinging arm Manual Therapy Treatment Consent Patient gave verbal consent for manual Yes treatment Soft Tissue Mobilization R shoulder/periscapulars Body Location rhomboids, lat, UT, LS Mobilization Type Rolling Intensity/Depth Superficial Body Position Sidelying Comments Tightness and mild tenderness along medial scapular border especially along rhomboids, reduced with gentle rolling. Avoid healing incisions and monitored for pain Joint Mobilizations R GHJ Direction post, inf Grade II Body Position Hooklying Reps/Duration 4x30 ea Comments Pt reports feels better with mobilization. Improved posterior glide despite strong anterior humeral positioning R scapulothoracic Direction elevation/depression, rotation , retraction/protraction Grade II Body Position Sidelying Reps/Duration 1x20 ea Comments positioned into slight scapular retraction, monitored for pain. Good elevation and retraction, minimal rotation and depression Manual Techniques PROM Body Location R GHJ Body Position Hooklying Reps/Duration 10 ea with brief, gentle pause at end range Comments Monitored for pain. Flexion 90 deg, abduction 85 deg, ER to neutral. Pt has pain with passive eccentric lowering, but reduced with gentle isometric ext into PT hand with lowering PT-OP-T Assessment and Plan Start: 04/28/24 07:22 Freq: Status: Active Protocol: Document 05/05/24 07:29 NM (Rec: 05/05/24 08:18 NM [id number]) Physical Therapy Assessment Goals Four Impairment quickdash 81.8% impairment Short Term Goal (STG) Pt will report impairment <50% impairment on quickdash in order to demonstrate improved R shoulder mobility and strength for ADLs/IADLs and QOL STG Duration 8 weeks [employer] Goal (LTG) Pt will report impairment <25% impairment on quickdash in order to demonstrate improved R shoulder mobility and strength for ADLs/IADLs and QOL LTG Duration 12 weeks Three Impairment ADLs/IADLs Short Term Goal (STG) Pt will report that he is able to perform ADLs/IADLs without increase in baseline pain and without limitations due to R shoulder mobility STG Duration 8 weeks [employer] Goal (LTG) Pt will report that he is able to perform ADLs/IADLs including driving with R arm without increase in baseline pain or limitation, if appropriate per MD LTG Duration 12 weeks Two Impairment strength Short Term Goal (STG) Pt will improve R global shoulder strength to at least 4-/5 MMT in order to demonstrate improved strength for reaching and ADLs STG Duration 8 weeks [facility] Goal (LTG) Pt will improve R global shoulder strength to at least 4+/5 MMT in order to demonstrate improved strength for reaching and ADLs LTG Duration 12 weeks One Impairment R shoulder ROM limited due to precautions Short Term Goal (STG) Pt will present with R shoulder flexion and abduction AROM to at least 90 deg in order to demonstrate improved mobility for reaching and dressing STG Duration 6 weeks [facility] Goal (LTG) Pt will present with R shoulder flexion and abduction AROM to at least 150 deg in order to demonstrate improved mobility for reaching and dressing LTG Duration 12 weeks Assessment Summary Assessment Pt tolerated session well. Initiated R shoulder isometrics against PT resistance and wall; good tolerance for isometrics but requires moderate cues to remain within pain free submaximal contraction. Pt has most discomfort with abd, but only if performed against wall. Good muscle activation with minimal compensations when performed against PT hand . Demos improved R shoulder PROM today, up to 90 deg R shoulder flex and 85 deg abduction. However, pt R humerus continues to be situated anteriorly, leading to subacromial pain with elevation. Reports improvements in subacromial pain, reduced pain with mobilization. Currently 4 weeks post op. Pt would benefit from skilled PT for R shoulder mobility and strength per protocol in order to improve ability to perform ADLs and IADLs. Physical Therapy Plan Frequency and Duration Frequency of Treatment 1-2x/wk Duration of treatment (weeks) 12 Plan of Care Start Date 04/28/24 Plan of Care End Date 07/25/24 Therapeutic Interventions Therapeutic Interventions Coordination Training,Gait Training,Home Exercise Program ,Joint Mobilizations,Manual Therapy,Neuromuscular Re- education,Orthotic/Prosthetic Management,Patient/Caregiver Education,Self-Care/Home Management,Sensory Integration ,Soft Tissue Mobilization, Taping,Therapeutic Activities, Therapeutic Exercises Modalities Cold Pack/Ice Massage,Electric Stimulation,Hot Packs, Ultrasound Next Visit Focus/Plan Next Note Type Treatment Note Next Visit Plan Progress per protocol, start w / phase I; do not progress to phase II until complete phase 1 PROM>AAROM>AROM (add PROM/ AAROM to HEP if looks good), review isometrics and add to HEP (add flex), scapular and glenohumeral mobilization, pendulums/cane/abhishek no bicep/tricep due to tenodesis until clarified with
--- NOTE | 2024-05-08 08:17 | PT.OTN ---
Current Diagnoses Stiffness of right shoulder, not elsewhere classified (05/08/24) Weakness (05/08/24) Strain of muscle(s) and tendon(s) of the rotator cuff of right shoulder, subsequent encounter (05/08/24) Physical Therapy Treatment Note PT-OP-A Visit Information Start: 04/28/24 07:22 Freq: Status: Active Protocol: Document 05/08/24 07:34 SP (Rec: 05/08/24 07:44 SP [id number]) Out-Patient Physical Therapy Visit Information Visit Information Visit Type Treatment Note Visit Note DOS: 04/07 01/15 MAX visits Visit Start Time 07:34 Visit Stop Time 08:17 Visit Number 01/15 Number of [facility] HEALTH SPECIALIST Visits 1 Evaluation Information Evaluation Date 04/28/24 Precautions Precautions s/p SAD, rotator cuff debridement, arthroscopic biceps tendesis, and distal clavicle excision, DOS: PT-OP-B Current Condition Start: 04/28/24 07:22 Freq: Status: Active Protocol: Document 04/28/24 07:23 NM (Rec: 04/28/24 08:19 NM [id number]) Current Condition History of Current Condition Onset Date DOS: 04/07/24 Current Complaints pain, mobility, strength History of Current Condition Pt presents with R shoulder pain following rotator cuff debridement, arthroscopic biceps tendesis, decompression , and distal clavicle excision on 04/07/24. He states that they repaired the tear in his pec and biceps, but did not do anything to the rotator cuff. Pt saw Dr. Sanchez. He just had his 2 week follow up. Pt reports that he originally injured his arm when he tore the muscle when he was lifting something out of a loft, he had difficulty with controlling the lowering of the heavyier object. This occurred 2 years ago in March 2023. Pt also has concurrent R groin, lower back pain; he had L RACHELE in Oct 2023 but did not complete PT. He has had MRIs of his R shoulder. Pt reports difficulty with driving, push, pull, lift. Pt reports that he tripped over his dog this past Sunday, when he reached out to catch himself on the door post with his R hand. He reports that his pain has changed, now in his lower pec vs the upper pec . Still has pain in armpit, pec. Prior to fall had pain along GHJ, biceps. Pt saw Ramo Gaffney. wants pt to flex/ext elbow, move fingers. 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), driving Prior Functional Status Baseline Function- Work/School unemployed x10 years Current Functional Impairments (Reported) Functional Limitations- ADL's ADLs, grooming Functional Limitations- Other sleeping: side sleeper ( following RACHELE had to lie on R shoulder)- stopped PT following repair, did not complete because felt like re -aggravating it all the time; 3 hrs at time (previously 5-6 hrs) PT-OP-C Subjective Start: 04/28/24 07:22 Freq: Status: Active Protocol: Document 05/08/24 07:34 SP (Rec: 05/08/24 07:44 SP [id number]) OP-PT Subjective Patient Comments Patient Comments Pt reports sore after last tx but felt better next day and able perform pendulum with less pain. CHallenge sleeping: unable L side due to L hip still recovering from surgery last Oct and not able sleep on back always been side sleeper so sleeps onR side with R arm slight fwd with elbow bent hand on chest but can't stay long due to aches/pain. Sleeps about 2/5-3 hrs at time. PT-OP-E Functional Tests Start: 04/28/24 07:22 Freq: Status: Active Protocol: Document 04/28/24 07:23 NM (Rec: 04/28/24 08:19 NM [id number]) Functional Tests Apley's Scratch Test Action 1- Left ACJ Action 1- Right N/A Action 2- Left T5 Action 2- Right N/A Action 3- Left T8 Action 3- Right N/A PT-OP-F Manual Assessment Start: 04/28/24 07:22 Freq: Status: Active Protocol: Document 04/28/24 07:23 NM (Rec: 04/28/24 10:15 NM [id number]) Manual Assessments Soft Tissue Assessment Soft Tissue Mobility Assessment Increased restrictions of R upper trap, cervical paraspinals. Bruising and increased tenderness along biceps muscle belly, long head tendon, and pec muscle. Joint Mobility Assessment Joint Mobility Assessment Decreased SC joint, AC joint, and GH joint mobility passively on R shoulder PT-OP-G Mobility & Gait Start: 04/28/24 07:22 Freq: Status: Active Protocol: Document 04/28/24 07:23 NM (Rec: 04/28/24 10:15 NM [id number]) OP Gait Assessment Gait Gait Assistance Required: Independent Distance (Feet) 150 Gait Deviations General Gait Pattern Antalgic Comments Gait Comments Presents with standard R sling . Minimal trunk rotation, decreased stance time on LLE PT-OP-H Neuro Start: 04/28/24 07:22 Freq: Status: Active Protocol: Document 04/28/24 07:23 NM (Rec: 04/28/24 10:15 NM [id number]) Sensation Evaluation Comments Summary Comments RUE equally intact to light touch sensation with LUE PT-OP-J Posture/Palpation/Skin Start: 04/28/24 07:22 Freq: Status: Active Protocol: Document 04/28/24 07:23 NM (Rec: 04/28/24 08:19 NM [id number]) Posture Evaluation Position Standing Head/C-Spine Posture C-Spine Flattened Shoulder Posture (L) Rounded,(R) Rounded,(L) Forward,(R) Forward Scapula Posture (R) Protracted,(R) Winged Arm Posture (L) Neutral,(R) Internally Rotated Pelvis Posture Anteriorly Tilted Palpation Assessment Location R shoulder Palpation Details tenderness, swelling and edema along R arm Skin Assessment Incisional Assessment Incision Appearance/Comments Incisions C/D/I, no signs/ symptoms of infection Bruising: along biceps muscle belly and long head biceps, pectoralis, near nipple No significant swelling along R shoulder except near R upper trapezius PT-OP-K Range of Motion Start: 04/28/24 07:22 Freq: Status: Active Protocol: Document 04/28/24 07:23 NM (Rec: 04/28/24 08:19 NM [id number]) Shoulder Goniometric Range of Motion Shoulder R PROM Testing Position Supine Flexion 80 Abduction 65 L AROM Testing Position Standing Flexion 155 Extension 50 Abduction 166 External Rotation at 90 degrees 80 Abduction External Rotation at 0 degrees Abduction 55 Internal Rotation 70 Elbow/Forearm Range of Motion Elbow/Forearm R PROM ROM Testing Position Supine Elbow Flexion (degrees) 120 Elbow Extension (degrees) 3 PT-OP-M Strength Start: 04/28/24 07:22 Freq: Status: Active Protocol: Document 04/28/24 07:23 NM (Rec: 04/28/24 08:19 NM [id number]) Shoulder Strength Shoulder Manual Muscle Testing Right Comments Strength not tested to allow healing of surgical repair Left Flexion 4+ Good+ Extension 4+ Good+ Abduction (C5) 4+ Good+ Adduction 4+ Good+ External Rotation 4+ Good+ Internal Rotation 4+ Good+ Horizontal Adduction 4 Good Elbow/Forearm Strength Elbow and Forearm Manual Muscle Testing Right Comments Strength not tested to allow healing of surgical repair Left Flexion (C6) 4+ Good+ Extension (C7) 4+ Good+ PT-OP-Q Treatments Start: 04/28/24 07:22 Freq: Status: Active Protocol: Document 05/08/24 07:34 SP (Rec: 05/08/24 07:45 SP [id number]) Therapeutic Exercises Sitting Exercises neck stretches Sitting Exercise Name trialed and good response: UT, Scalene- added HEP- declined HOs Side right Resistance AROM Equipment Used declined HO Reps/Minutes 15 SH x3 Comments good feedback gentle stretch anterolat neck, feels good pulleys Sitting Exercise Name flexion Side right Resistance AAROM Equipment Used L assisting R Reps/Minutes 2 min Comments limited ROM up to 80 deg, cued elbow straight- less pain more rhomboid tire scapular retraction/adduction Sitting Exercise Name 1. retraction, 2. elevation > depression isometric Side bilateral Reps/Minutes 10x5 ea Comments cued gentle slow fluid mob Standing Exercises isometrics Standing Exercise Name shldr: 1. ADD, 2. ABD, 3.ext ( to neutral), 4. ER, 5. IR, 6. flex Side right Equipment Used towel roll btwn arm/body, pillow at wall Reps/Minutes 10x5 ea Comments PT hand for ABD; cued pain free jong, correct execution pendulums Standing Exercise Name 1. fwd/bwd, 2. lateral, 3. small circles Side right Reps/Minutes 10 btwn sets of jong Comments cued to use body vs swinging arm- allow walk too Manual Therapy Treatment Soft Tissue Mobilization scar mobility Body Location R shld Mobilization Type Rolling Comments gentle STMs and ed self, monitor pain R shoulder/periscapulars Body Location rhomboids, lat, UT, LS, pec, deltoid Mobilization Type Rolling Intensity/Depth Superficial Body Position Sidelying Comments Tightness and mild tenderness along prox pec, reduced with gentle rolling. Avoid healing incisions and monitored for pain Joint Mobilizations R GHJ Direction post, inf Grade II Body Position Hooklying Reps/Duration 4x30 ea Comments Pt reports feels better with mobilization. Improved posterior glide despite strong anterior humeral positioning R scapulothoracic Direction elevation/depression, rotation , retraction/protraction Grade II Body Position Sidelying Reps/Duration 1x20 ea Comments positioned into slight scapular retraction, monitored for pain. Good elevation and retraction, minimal rotation and depression Manual Techniques PROM Body Location R GHJ Body Position Hooklying Reps/Duration 10 ea with brief, gentle pause at end range Comments Monitored for pain. Flexion 90 deg, abduction 85 deg, ER to neutral. Pt has pain with passive eccentric lowering, but reduced with gentle isometric ext into PT hand with lowering PT-OP-T Assessment and Plan Start: 04/28/24 07:22 Freq: Status: Active Protocol: Document 05/08/24 07:34 SP (Rec: 05/08/24 07:44 SP [id number]) Physical Therapy Assessment Goals Four Impairment quickdash 81.8% impairment Short Term Goal (STG) Pt will report impairment <50% impairment on quickdash in order to demonstrate improved R shoulder mobility and strength for ADLs/IADLs and QOL STG Duration 8 weeks Assisted Goal (LTG) Pt will report impairment <25% impairment on quickdash in order to demonstrate improved R shoulder mobility and strength for ADLs/IADLs and QOL LTG Duration 12 weeks Three Impairment ADLs/IADLs Short Term Goal (STG) Pt will report that he is able to perform ADLs/IADLs without increase in baseline pain and without limitations due to R shoulder mobility STG Duration 8 weeks Assisted Goal (LTG) Pt will report that he is able to perform ADLs/IADLs including driving with R arm without increase in baseline pain or limitation, if appropriate per MD LTG Duration 12 weeks Two Impairment strength Short Term Goal (STG) Pt will improve R global shoulder strength to at least 4-/5 MMT in order to demonstrate improved strength for reaching and ADLs STG Duration 8 weeks Can Maker Goal (LTG) Pt will improve R global shoulder strength to at least 4+/5 MMT in order to demonstrate improved strength for reaching and ADLs LTG Duration 12 weeks One Impairment R shoulder ROM limited due to precautions Short Term Goal (STG) Pt will present with R shoulder flexion and abduction AROM to at least 90 deg in order to demonstrate improved mobility for reaching and dressing STG Duration 6 weeks Assisted Goal (LTG) Pt will present with R shoulder flexion and abduction AROM to at least 150 deg in order to demonstrate improved mobility for reaching and dressing LTG Duration 12 weeks Assessment Summary Assessment Pt tolerated session well, slight less guarded post manual, more scapular glide allowance, less tension on R neck. Cued for elbow extension during pulleys with good CS alignment neutral reports less pain over anterior R shoulder vs bent AAROM. Trialed neck UT, LS, scalene stretching with good feedback response to support lessening tension with limited strength and ROM of RUE at this time. Pt has follow up with ortho 05/13, [facility] requested giving feedback on progress with protocol for rehab. Cues today for decreased forceful scap retractions due to over recruitment of UT and supporting RUE on lap/sling if hanging on side feels to much . He does wear sling if out in alot people for their awareness stay away from his R arm. Improved pendulum performance. Prox tolerance RUE PROM: Flexion 90 deg, Abduction 85 deg, ER to neutral. Physical Therapy Plan Frequency and Duration Frequency of Treatment 1-2x/wk Duration of treatment (weeks) 12 Plan of Care Start Date 04/28/24 Plan of Care End Date 07/25/24 Therapeutic Interventions Therapeutic Interventions Coordination Training,Gait Training,Home Exercise Program ,Joint Mobilizations,Manual Therapy,Neuromuscular Re- education,Orthotic/Prosthetic Management,Patient/Caregiver Education,Self-Care/Home Management,Sensory Integration ,Soft Tissue Mobilization, Taping,Therapeutic Activities, Therapeutic Exercises Modalities Cold Pack/Ice Massage,Electric Stimulation,Hot Packs, Ultrasound Next Visit Focus/Plan Next Note Type Treatment Note Next Visit Plan Ask Dr kirk 05/13 if can progress in Protocol. PT POC: Progress per protocol, start w/ phase I; do not progress to phase II until complete phase 1 PROM>AAROM>AROM (add PROM/ AAROM to HEP if looks good), review isometrics and add to HEP (add flex), scapular and glenohumeral mobilization, pendulums/cane/abhishek no bicep/tricep due to tenodesis until clarified with
--- NOTE | 2024-05-13 08:24 | PT.OTN ---
Current Diagnoses Stiffness of right shoulder, not elsewhere classified (05/13/24) Weakness (05/13/24) Strain of muscle(s) and tendon(s) of the rotator cuff of right shoulder, subsequent encounter (05/13/24) Physical Therapy Treatment Note PT-OP-A Visit Information Start: 04/28/24 07:22 Freq: Status: Active Protocol: Document 05/13/24 07:32 SP (Rec: 05/13/24 09:10 SP [id number]) Out-Patient Physical Therapy Visit Information Visit Information Visit Type Treatment Note Visit Note DOS: 04/07 02/14 MAX visits Visit Start Time 07:32 Visit Stop Time 08: Visit Number 02/14 Number of [employer] Visits 2 Evaluation Information Evaluation Date 04/28/24 Precautions Precautions s/p SAD, R rotator cuff debridement, arthroscopic biceps tendesis, and distal clavicle excision, DOS: PT-OP-B Current Condition Start: 04/28/24 07:22 Freq: Status: Active Protocol: Document 04/28/24 07:23 NM (Rec: 04/28/24 08:19 NM [id number]) Current Condition History of Current Condition Onset Date DOS: 04/07/24 Current Complaints pain, mobility, strength History of Current Condition Pt presents with R shoulder pain following rotator cuff debridement, arthroscopic biceps tendesis, decompression , and distal clavicle excision on 04/07/24. He states that they repaired the tear in his pec and biceps, but did not do anything to the rotator cuff. Pt saw Dr. Sanchez. He just had his 2 week follow up. Pt reports that he originally injured his arm when he tore the muscle when he was lifting something out of a loft, he had difficulty with controlling the lowering of the heavyier object. This occurred 2 years ago in March 2023. Pt also has concurrent R groin, lower back pain; he had L RACHELE in Oct 2023 but did not complete PT. He has had MRIs of his R shoulder. Pt reports difficulty with driving, push, pull, lift. Pt reports that he tripped over his dog this past Sunday, when he reached out to catch himself on the door post with his R hand. He reports that his pain has changed, now in his lower pec vs the upper pec . Still has pain in armpit, pec. Prior to fall had pain along GHJ, biceps. Pt saw Ramo Gaffney. wants pt to flex/ext elbow, move fingers. 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 Prior Functional Status Baseline Function- Work/School unemployed x10 years Current Functional Impairments (Reported) Functional Limitations- ADL's ADLs, grooming Functional Limitations- Other sleeping: side sleeper ( following RACHELE had to lie on R shoulder)- stopped PT following repair, did not complete because felt like re -aggravating it all the time; 3 hrs at time (previously 5-6 hrs) PT-OP-C Subjective Start: 04/28/24 07:22 Freq: Status: Active Protocol: Document 05/13/24 07:32 SP (Rec: 05/13/24 09:10 SP [id number]) OP-PT Subjective Patient Comments Patient Comments Pt reports was really sore after last tx and still recoverying from it. Only able to sleep for about 2 hrs iniitally then every hour in bed on his L side. Arrival R side neck stiff and aching. Has had a few times reached out to R side when laying down and has really bad pain. Incisions completely healed superficially. Pt reports doesn't have a abhishek home, only doing pendulums for arm away from body. PT-OP-E Functional Tests Start: 04/28/24 07:22 Freq: Status: Active Protocol: Document 04/28/24 07:23 NM (Rec: 04/28/24 08:19 NM [id number]) Functional Tests Apley's Scratch Test Action 1- Left ACJ Action 1- Right N/A Action 2- Left T5 Action 2- Right N/A Action 3- Left T8 Action 3- Right N/A PT-OP-F Manual Assessment Start: 04/28/24 07:22 Freq: Status: Active Protocol: Document 04/28/24 07:23 NM (Rec: 04/28/24 10:15 NM [id number]) Manual Assessments Soft Tissue Assessment Soft Tissue Mobility Assessment Increased restrictions of R upper trap, cervical paraspinals. Bruising and increased tenderness along biceps muscle belly, long head tendon, and pec muscle. Joint Mobility Assessment Joint Mobility Assessment Decreased SC joint, AC joint, and GH joint mobility passively on R shoulder PT-OP-G Mobility & Gait Start: 04/28/24 07:22 Freq: Status: Active Protocol: Document 04/28/24 07:23 NM (Rec: 04/28/24 10:15 NM [id number]) OP Gait Assessment Gait Gait Assistance Required: Independent Distance (Feet) 150 Gait Deviations General Gait Pattern Antalgic Comments Gait Comments Presents with standard R sling . Minimal trunk rotation, decreased stance time on LLE PT-OP-H Neuro Start: 04/28/24 07:22 Freq: Status: Active Protocol: Document 04/28/24 07:23 NM (Rec: 04/28/24 10:15 NM [id number]) Sensation Evaluation Comments Summary Comments RUE equally intact to light touch sensation with LUE PT-OP-J Posture/Palpation/Skin Start: 04/28/24 07:22 Freq: Status: Active Protocol: Document 04/28/24 07:23 NM (Rec: 04/28/24 08:19 NM [id number]) Posture Evaluation Position Standing Head/C-Spine Posture C-Spine Flattened Shoulder Posture (L) Rounded,(R) Rounded,(L) Forward,(R) Forward Scapula Posture (R) Protracted,(R) Winged Arm Posture (L) Neutral,(R) Internally Rotated Pelvis Posture Anteriorly Tilted Palpation Assessment Location R shoulder Palpation Details tenderness, swelling and edema along R arm Skin Assessment Incisional Assessment Incision Appearance/Comments Incisions C/D/I, no signs/ symptoms of infection Bruising: along biceps muscle belly and long head biceps, pectoralis, near nipple No significant swelling along R shoulder except near R upper trapezius PT-OP-K Range of Motion Start: 04/28/24 07:22 Freq: Status: Active Protocol: Document 04/28/24 07:23 NM (Rec: 04/28/24 08:19 NM [id number]) Shoulder Goniometric Range of Motion Shoulder R PROM Testing Position Supine Flexion 80 Abduction 65 L AROM Testing Position Standing Flexion 155 Extension 50 Abduction 166 External Rotation at 90 degrees 80 Abduction External Rotation at 0 degrees Abduction 55 Internal Rotation 70 Elbow/Forearm Range of Motion Elbow/Forearm R PROM ROM Testing Position Supine Elbow Flexion (degrees) 120 Elbow Extension (degrees) 3 PT-OP-M Strength Start: 04/28/24 07:22 Freq: Status: Active Protocol: Document 04/28/24 07:23 NM (Rec: 04/28/24 08:19 NM [id number]) Shoulder Strength Shoulder Manual Muscle Testing Right Comments Strength not tested to allow healing of surgical repair Left Flexion 4+ Good+ Extension 4+ Good+ Abduction (C5) 4+ Good+ Adduction 4+ Good+ External Rotation 4+ Good+ Internal Rotation 4+ Good+ Horizontal Adduction 4 Good Elbow/Forearm Strength Elbow and Forearm Manual Muscle Testing Right Comments Strength not tested to allow healing of surgical repair Left Flexion (C6) 4+ Good+ Extension (C7) 4+ Good+ PT-OP-Q Treatments Start: 04/28/24 07:22 Freq: Status: Active Protocol: Document 05/13/24 07:32 SP (Rec: 05/13/24 09:10 SP [id number]) Therapeutic Exercises Sidelying Exercises table slide Sidelying Exercise Name trialed PROM flexion ( performing home reported) Side right Equipment Used pillow case R hand, sit in chair (table>rolling desk) Reps/Minutes 1 reps each surface VERY slow Comments stopped due to still to resistant causing pain anterior shld Sitting Exercises neck stretches Sitting Exercise Name UT & LS: reviewed and provided HOs today for recall Side right Resistance AROM Reps/Minutes 1 rep hold for 5 breaths Comments good feedback gentle stretch anterolat neck, feels good pulleys Sitting Exercise Name flexion Side right Resistance AAROM Equipment Used L assisting R Reps/Minutes 2 min Comments limited ROM up to 80-90 deg, elbow straight- occ [employer] tactile support scapular retraction/adduction Sitting Exercise Name 1. retraction, 2. elevation > depression isometric Side bilateral Reps/Minutes 5 reps x5 SH Comments cued gentle slow fluid mob Standing Exercises isometrics Standing Exercise Name shldr: 1. ADD, 2. ABD, 3.ext ( to neutral), 4. ER, 5. IR Side right Resistance [employer] manual light resistance for feedback performance home Equipment Used towel roll btwn arm/body ( seated this tx) Reps/Minutes 5x5 ea LUE supporting RUE elbow flexion Comments tactile resistance improved light self perform and correct execution- pnfre Manual Therapy Treatment Soft Tissue Mobilization scar mobility Body Location R shld Mobilization Type Rolling Intensity/Depth Superficial Body Position Hooklying Comments very light gentle STMs and ed self, monitor pain cervical spine Body Location UT, LS, paraspinals, SOR, scalene, SCM Mobilization Type Rolling,Sustained Pressure Intensity/Depth Superficial Body Position Sidelying Comments Decreased muscle tension/ softening Palpable relaxation following gentle rolling. Monitored for pain Ed self application R shoulder/periscapulars Body Location Pec, deltoid Mobilization Type Rolling Intensity/Depth Superficial Body Position Hooklying Comments Tightness and mild tenderness along prox pec, reduced with gentle rolling. Monitored for pain Joint Mobilizations R GHJ Direction post, inf Grade I Body Position Hooklying Comments Pt reports feels better with mobilization. Improved posterior glide despite strong anterior humeral positioning R scapulothoracic Direction elevation/depression, rotation , retraction/protraction Grade II Body Position Sidelying Reps/Duration 1x20 ea Comments positioned into slight scapular retraction, monitored for pain. Good elevation and retraction, minimal rotation and depression Manual Techniques PROM Type FF, ABD (elbow bent & straight ) Body Location R GHJ Body Position Hooklying Reps/Duration 10 ea with brief, gentle pause at end range Comments Monitored for pain. Flexion 7- 80 deg, abduction 85 deg, Pt has pain with passive eccentric lowering, but reduced with gentle isometric ext into [employer] hand with lowering Self-Care/Home Management Treatment Education Patient Education Joint Protection,Safety Other Education Education on very gentle isometric added LUE support RUE into elbow flexion with [employer] tactile feedback resistance manual today, noted initial was over applying pressure previous to today. DIscussed set up TV remote at home on L so not reaching to right and forgetting causing pain. [employer] discussed if girlfriend wants to come a tx, caregiver training with therapist for PROM slow, gentle safely outside PT for safety. [employer] discussed acquire pulleys (purchase online vs pully wheel and rope at hardware store) to support PROM home carryover. PT-OP-R Modalities Start: 04/28/24 07:22 Freq: Status: Active Protocol: Document 05/13/24 07:32 SP (Rec: 05/13/24 09:10 SP [id number]) Hot Pack/Cold Pack Treatment CP Location R shld Patient Position Sitting Patient Tolerance Good Comments good reported pain relief response. PT-OP-T Assessment and Plan Start: 04/28/24 07:22 Freq: Status: Active Protocol: Document 05/13/24 07:32 SP (Rec: 05/13/24 09:10 SP [id number]) Physical Therapy Assessment Goals Four Impairment quickdash 81.8% impairment Short Term Goal (STG) Pt will report impairment <50% impairment on quickdash in order to demonstrate improved R shoulder mobility and strength for ADLs/IADLs and QOL STG Duration 8 weeks Acquisition Editor Goal (LTG) Pt will report impairment <25% impairment on quickdash in order to demonstrate improved R shoulder mobility and strength for ADLs/IADLs and QOL LTG Duration 12 weeks Three Impairment ADLs/IADLs Short Term Goal (STG) Pt will report that he is able to perform ADLs/IADLs without increase in baseline pain and without limitations due to R shoulder mobility STG Duration 8 weeks Detention Goal (LTG) Pt will report that he is able to perform ADLs/IADLs including driving with R arm without increase in baseline pain or limitation, if appropriate per MD LTG Duration 12 weeks Two Impairment strength Short Term Goal (STG) Pt will improve R global shoulder strength to at least 4-/5 MMT in order to demonstrate improved strength for reaching and ADLs STG Duration 8 weeks Detention Goal (LTG) Pt will improve R global shoulder strength to at least 4+/5 MMT in order to demonstrate improved strength for reaching and ADLs LTG Duration 12 weeks One Impairment R shoulder ROM limited due to precautions Short Term Goal (STG) Pt will present with R shoulder flexion and abduction AROM to at least 90 deg in order to demonstrate improved mobility for reaching and dressing STG Duration 6 weeks Acquisition Editor Goal (LTG) Pt will present with R shoulder flexion and abduction AROM to at least 150 deg in order to demonstrate improved mobility for reaching and dressing LTG Duration 12 weeks Assessment Summary Assessment Pt is 5 weeks s/p SAD, R rotator cuff debridement, arthroscopic biceps tendesis, and distal clavicle excision. He continues to have limited tolerance PROM FF approx 80 deg and 70 deg ABD, continues limited due to pain and guarding. Cued breath to support reduction guarding. Pt improved pulleys PROM FF elbow straight apporx 90deg very low discomfort vs elbow bent approx 35 deg humeral FF, reports eccentric slow lowering causing pain anterior R shld. Education on acquiring pulleys for home carryover and girlfriend coming in for CGT for PROM safety to allow carryover home . Pt has follow up ortho 05/15 appt asking further assessment with decreased tolerance to progression in PROM and protocol. Physical Therapy Plan Frequency and Duration Frequency of Treatment 1-2x/wk Duration of treatment (weeks) 12 Plan of Care Start Date 04/28/24 Plan of Care End Date 07/25/24 Therapeutic Interventions Therapeutic Interventions Coordination Training,Gait Training,Home Exercise Program ,Joint Mobilizations,Manual Therapy,Neuromuscular Re- education,Orthotic/Prosthetic Management,Patient/Caregiver Education,Self-Care/Home Management,Sensory Integration ,Soft Tissue Mobilization, Taping,Therapeutic Activities, Therapeutic Exercises Modalities Cold Pack/Ice Massage,Electric Stimulation,Hot Packs, Ultrasound Other Referrals/Consults Referrals/Consults Recommended After discussion with primary PT Melissa, recommend ortho reassessment of R shld due to continues pain and limited PROM and guarding. Next Visit Focus/Plan Next Note Type Treatment Note Next Visit Plan Ask Dr kirk 05/15 if can progress in Protocol. PT POC: Progress per protocol, start w/ phase I; do not progress to phase II until complete phase 1 PROM>AAROM>AROM (add PROM/ AAROM to HEP if looks good), review isometrics and add to HEP (add flex), scapular and glenohumeral mobilization, pendulums/cane/abhishek no bicep/tricep due to tenodesis until clarified with
--- NOTE | 2024-05-16 15:57 | PT.OTN ---
Current Diagnoses Stiffness of right shoulder, not elsewhere classified (05/16/24) Weakness (05/16/24) Strain of muscle(s) and tendon(s) of the rotator cuff of right shoulder, subsequent encounter (05/16/24) Physical Therapy Treatment Note PT-OP-A Visit Information Start: 04/28/24 07:22 Freq: Status: Active Protocol: Document 05/16/24 07:31 NM (Rec: 05/16/24 08:15 NM [id number]) Out-Patient Physical Therapy Visit Information Visit Information Visit Type Treatment Note Visit Note DOS: 04/07 03/17 MAX visits Visit Start Time 07:32 Visit Stop Time 08:00 Visit Number 03/17 Number of SLD EDUCATIONAL AIDE Visits 0 Evaluation Information Evaluation Date 04/28/24 Precautions Precautions s/p SAD, R rotator cuff debridement, arthroscopic biceps tendesis, and distal clavicle excision, DOS: PT-OP-B Current Condition Start: 04/28/24 07:22 Freq: Status: Active Protocol: Document 04/28/24 07:23 NM (Rec: 04/28/24 08:19 NM [id number]) Current Condition History of Current Condition Onset Date DOS: 04/07/24 Current Complaints pain, mobility, strength History of Current Condition Pt presents with R shoulder pain following rotator cuff debridement, arthroscopic biceps tendesis, decompression , and distal clavicle excision on 04/07/24. He states that they repaired the tear in his pec and biceps, but did not do anything to the rotator cuff. Pt saw Dr. Sanchez. He just had his 2 week follow up. Pt reports that he originally injured his arm when he tore the muscle when he was lifting something out of a loft, he had difficulty with controlling the lowering of the heavyier object. This occurred 2 years ago in March 2023. Pt also has concurrent R groin, lower back pain; he had L RACHELE in Oct 2023 but did not complete PT. He has had MRIs of his R shoulder. Pt reports difficulty with driving, push, pull, lift. Pt reports that he tripped over his dog this past Sunday, when he reached out to catch himself on the door post with his R hand. He reports that his pain has changed, now in his lower pec vs the upper pec . Still has pain in armpit, pec. Prior to fall had pain along GHJ, biceps. Pt saw Ramo Gaffney. wants pt to flex/ext elbow, move fingers. 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 Prior Functional Status Baseline Function- Work/School unemployed x10 years Current Functional Impairments (Reported) Functional Limitations- ADL's ADLs, grooming Functional Limitations- Other sleeping: side sleeper ( following RACHELE had to lie on R shoulder)- stopped PT following repair, did not complete because felt like re -aggravating it all the time; 3 hrs at time (previously 5-6 hrs) PT-OP-C Subjective Start: 04/28/24 07:22 Freq: Status: Active Protocol: Document 05/16/24 07:31 NM (Rec: 05/16/24 08:15 NM [id number]) OP-PT Subjective Patient Comments Patient Comments Pt reports that he saw Dr. Sanchez yesterday. States that Dr Chong Sanchez is going to order another MRI, thinks possible rotator cuff and biceps tear. PT-OP-E Functional Tests Start: 04/28/24 07:22 Freq: Status: Active Protocol: Document 04/28/24 07:23 NM (Rec: 04/28/24 08:19 NM [id number]) Functional Tests Apley's Scratch Test Action 1- Left ACJ Action 1- Right N/A Action 2- Left T5 Action 2- Right N/A Action 3- Left T8 Action 3- Right N/A PT-OP-F Manual Assessment Start: 04/28/24 07:22 Freq: Status: Active Protocol: Document 04/28/24 07:23 NM (Rec: 04/28/24 10:15 NM [id number]) Manual Assessments Soft Tissue Assessment Soft Tissue Mobility Assessment Increased restrictions of R upper trap, cervical paraspinals. Bruising and increased tenderness along biceps muscle belly, long head tendon, and pec muscle. Joint Mobility Assessment Joint Mobility Assessment Decreased SC joint, AC joint, and GH joint mobility passively on R shoulder PT-OP-G Mobility & Gait Start: 04/28/24 07:22 Freq: Status: Active Protocol: Document 04/28/24 07:23 NM (Rec: 04/28/24 10:15 NM [id number]) OP Gait Assessment Gait Gait Assistance Required: Independent Distance (Feet) 150 Gait Deviations General Gait Pattern Antalgic Comments Gait Comments Presents with standard R sling . Minimal trunk rotation, decreased stance time on LLE PT-OP-H Neuro Start: 04/28/24 07:22 Freq: Status: Active Protocol: Document 04/28/24 07:23 NM (Rec: 04/28/24 10:15 NM [id number]) Sensation Evaluation Comments Summary Comments RUE equally intact to light touch sensation with LUE PT-OP-J Posture/Palpation/Skin Start: 04/28/24 07:22 Freq: Status: Active Protocol: Document 04/28/24 07:23 NM (Rec: 04/28/24 08:19 NM [id number]) Posture Evaluation Position Standing Head/C-Spine Posture C-Spine Flattened Shoulder Posture (L) Rounded,(R) Rounded,(L) Forward,(R) Forward Scapula Posture (R) Protracted,(R) Winged Arm Posture (L) Neutral,(R) Internally Rotated Pelvis Posture Anteriorly Tilted Palpation Assessment Location R shoulder Palpation Details tenderness, swelling and edema along R arm Skin Assessment Incisional Assessment Incision Appearance/Comments Incisions C/D/I, no signs/ symptoms of infection Bruising: along biceps muscle belly and long head biceps, pectoralis, near nipple No significant swelling along R shoulder except near R upper trapezius PT-OP-K Range of Motion Start: 04/28/24 07:22 Freq: Status: Active Protocol: Document 04/28/24 07:23 NM (Rec: 04/28/24 08:19 NM [id number]) Shoulder Goniometric Range of Motion Shoulder R PROM Testing Position Supine Flexion 80 Abduction 65 L AROM Testing Position Standing Flexion 155 Extension 50 Abduction 166 External Rotation at 90 degrees 80 Abduction External Rotation at 0 degrees Abduction 55 Internal Rotation 70 Elbow/Forearm Range of Motion Elbow/Forearm R PROM ROM Testing Position Supine Elbow Flexion (degrees) 120 Elbow Extension (degrees) 3 PT-OP-M Strength Start: 04/28/24 07:22 Freq: Status: Active Protocol: Document 04/28/24 07:23 NM (Rec: 04/28/24 08:19 NM [id number]) Shoulder Strength Shoulder Manual Muscle Testing Right Comments Strength not tested to allow healing of surgical repair Left Flexion 4+ Good+ Extension 4+ Good+ Abduction (C5) 4+ Good+ Adduction 4+ Good+ External Rotation 4+ Good+ Internal Rotation 4+ Good+ Horizontal Adduction 4 Good Elbow/Forearm Strength Elbow and Forearm Manual Muscle Testing Right Comments Strength not tested to allow healing of surgical repair Left Flexion (C6) 4+ Good+ Extension (C7) 4+ Good+ PT-OP-Q Treatments Start: 04/28/24 07:22 Freq: Status: Active Protocol: Document 05/16/24 07:31 NM (Rec: 05/16/24 08:15 NM [id number]) Therapeutic Exercises Supine Exercises PROM Supine Exercise Name Trialed fwd flexion (to 90 deg ) Side right Equipment Used L assist R Reps/Minutes 2x5 ea Comments cueing for execution, edu to remain w/i pain free range Sitting Exercises neck stretches Sitting Exercise Name UT & LS: reviewed Side right Resistance AROM Reps/Minutes 1 rep hold for 10 breaths Comments good feedback gentle stretch anterolat neck, feels good Standing Exercises isometrics Standing Exercise Name edu to d/c until cleared by MD following MRI pendulums Standing Exercise Name 1. fwd/bwd, 2. lateral, 3. small circles Side right Reps/Minutes 2' ea Comments pain free Other Exercises self soft tissue mobilization Other Exercise Name R cervical spine: LS, UT, paraspinals Side left Equipment Used sidelying w/ R arm supported Reps/Minutes 2 min Manual Therapy Treatment Consent Patient gave verbal consent for manual Yes treatment Soft Tissue Mobilization cervical spine Body Location UT, LS, paraspinals, SOR, scalene, SCM Mobilization Type Rolling,Sustained Pressure Intensity/Depth Superficial Body Position Sidelying Comments Decreased muscle tension/ softening Palpable relaxation following gentle rolling. Monitored for pain R shoulder/periscapulars Body Location pec near axilla, lat Mobilization Type Rolling Intensity/Depth Superficial Body Position Hooklying Comments Tightness and mild tenderness along proximal pec and lat, reduced with rolling. Monitored for pain Joint Mobilizations R scapulothoracic Direction elevation/depression, rotation , retraction/protraction Grade II Body Position Sidelying Reps/Duration 1x10 ea Comments positioned into slight scapular retraction, monitored for pain, following cervical spine soft tissue mobilation to improved muscle length PT-OP-R Modalities Start: 04/28/24 07:22 Freq: Status: Active Protocol: Document 05/13/24 07:32 SP (Rec: 05/13/24 09:10 SP [id number]) Hot Pack/Cold Pack Treatment CP Location R shld Patient Position Sitting Patient Tolerance Good Comments good reported pain relief response. PT-OP-T Assessment and Plan Start: 04/28/24 07:22 Freq: Status: Active Protocol: Document 05/16/24 07:31 NM (Rec: 05/16/24 08:15 NM [id number]) Physical Therapy Assessment Goals Four Impairment quickdash 81.8% impairment Short Term Goal (STG) Pt will report impairment <50% impairment on quickdash in order to demonstrate improved R shoulder mobility and strength for ADLs/IADLs and QOL STG Duration 8 weeks Chief Safety Officer Goal (LTG) Pt will report impairment <25% impairment on quickdash in order to demonstrate improved R shoulder mobility and strength for ADLs/IADLs and QOL LTG Duration 12 weeks Three Impairment ADLs/IADLs Short Term Goal (STG) Pt will report that he is able to perform ADLs/IADLs without increase in baseline pain and without limitations due to R shoulder mobility STG Duration 8 weeks Care Home Goal (LTG) Pt will report that he is able to perform ADLs/IADLs including driving with R arm without increase in baseline pain or limitation, if appropriate per MD LTG Duration 12 weeks Two Impairment strength Short Term Goal (STG) Pt will improve R global shoulder strength to at least 4-/5 MMT in order to demonstrate improved strength for reaching and ADLs STG Duration 8 weeks Care Home Goal (LTG) Pt will improve R global shoulder strength to at least 4+/5 MMT in order to demonstrate improved strength for reaching and ADLs LTG Duration 12 weeks One Impairment R shoulder ROM limited due to precautions Short Term Goal (STG) Pt will present with R shoulder flexion and abduction AROM to at least 90 deg in order to demonstrate improved mobility for reaching and dressing STG Duration 6 weeks Chief Safety Officer Goal (LTG) Pt will present with R shoulder flexion and abduction AROM to at least 150 deg in order to demonstrate improved mobility for reaching and dressing LTG Duration 12 weeks Assessment Summary Assessment Pt is currently 5 weeks s/p SAD, rotator cuff debridement, arthroscopic biceps tenodesis , and distal clavicle incision . Pt was recently assessed again by referring surgeon, who is planning to have an additional MRI to further address pt pain symptoms. Pt's R shoulder PROM limited to 85 deg forward flexion and 70 deg abduction, with increased pain, muscle guarding, and tension. Session emphasis today on pain reduction and tissue elongation. Educated on postural and postioning to limit increased pressure on anterior shoulder. Continues to have increased muscle tissue and trigger points of R cervical paraspinals and periscapulars. Reduced with gentle soft tissue mobilization. PT recommended pt continue with pendulums and PROM as tolerated within available pain free ROM to prevent increased stiffness in R shoulder. Educated on limited R shoulder AROM, recommended wearing sling. Pt will be placed on hold for PT until further workup, will be reassessed depending on surgeon's instructions to continue or discontinue PT. Physical Therapy Plan Frequency and Duration Frequency of Treatment 1-2x/wk Duration of treatment (weeks) 12 Plan of Care Start Date 04/28/24 Plan of Care End Date 07/25/24 Therapeutic Interventions Therapeutic Interventions Coordination Training,Gait Training,Home Exercise Program ,Joint Mobilizations,Manual Therapy,Neuromuscular Re- education,Orthotic/Prosthetic Management,Patient/Caregiver Education,Self-Care/Home Management,Sensory Integration ,Soft Tissue Mobilization, Taping,Therapeutic Activities, Therapeutic Exercises Modalities Cold Pack/Ice Massage,Electric Stimulation,Hot Packs, Ultrasound Other Referrals/Consults Referrals/Consults Recommended After discussion with primary PT Melissa, recommend ortho reassessment of R shld due to continues pain and limited PROM and guarding. Hold Physical Therapy Reason For Hold Hold PT until pt receives MRI and further workup from referring provider Next Visit Focus/Plan Next Note Type Treatment Note Next Visit Plan If cleared by MD and MRI, cont w/ phase 1. Otherwise, hold PT PT POC: Progress per protocol, start w/ phase I; do not progress to phase II until complete phase 1 PROM>AAROM>AROM (add PROM/ AAROM to HEP if looks good), review isometrics and add to HEP (add flex), scapular and glenohumeral mobilization, pendulums/cane/abhishek no bicep/tricep due to tenodesis until clarified with
--- NOTE | 2024-05-16 15:57 | PT-OP ANOTE ---
HOLD PT- Pt will be reassessed by referring surgeon and will be getting an MRI to determine integrity of repair. Hold PT until cleared by MD in writing to return if appropriate or discharge if recommended. Canceled appts for week of 05/19; will cancel remaining appt until pt cleared to receive recommendations from MD regarding pt's plan
--- NOTE | 2024-05-21 11:43 | PT-OP ANOTE ---
CONTINUE TO HOLD PT- PT called and spoke to pt at 1140. Pt is planning to have a MRI 05/[address] Sanchez on 05/29 to discuss MRI. Pt canceled appt until 06/03, where pt will be re-evaluated if surgeon determines pt is appropriate to return to PT
--- NOTE | 2024-06-02 16:04 | PT-OP ANOTE ---
Addendum entered and electronically signed by Melissa Keita, PT 06/05/24 16:03: Front office received a message from an RN from Dr. Sanchez's office informing PT to continue to work on ROM at this time per protocol Original Note: Addendum entered and electronically signed by Melissa Keita, PT 06/02/24 16:17: PT called and spoke to pt regarding call to Dr. Sanchez requesting clarification. Pt states that he has been compliant with HEP for PROM and pulleys. However, he does report that he still has pain and is unable to get to 90 deg; pt also reports that he now has pain in his elbow that he did not have before which confirms his suspicion that he retore his biceps. Pt also reports a lot of rotator cuff pain. Pt has MRI scheduled for 06/04/24 but does not have follow up until 06/18. Currently, pt on schedule for Sunday and planning to keep appt unless pt/PT hear back from Dr. Sanchez regarding to stop PT Original Note: PT called and spoke to Dr. Sanchez's staff Meena at 1600. Meena unable to reach Dr. Sanchez or biomedical engineering director, so PT left message asking for surgeon recommendation regarding pt situation. Pt MRI currently delayed and will not see Dr. Sanchez until end of month. Pt has limited insurance visits per year; asked for call back regarding whether MD wanting pt to continue with PT 1x/wk for ROM or to d/c and wait until evaluated again by MD as pt has currently been on hold from PT.
--- NOTE | 2024-06-06 15:40 | PT.OTN ---
Current Diagnoses Stiffness of right shoulder, not elsewhere classified (06/06/24) Weakness (06/06/24) Strain of muscle(s) and tendon(s) of the rotator cuff of right shoulder, subsequent encounter (06/06/24) Physical Therapy Treatment Note PT-OP-A Visit Information Start: 04/28/24 07:22 Freq: Status: Active Protocol: Document 06/06/24 07:28 NM (Rec: 06/06/24 08:58 NM [id number]) Out-Patient Physical Therapy Visit Information Visit Information Visit Type Progress Note Visit Note DOS: 04/07 04/16 MAX visits Visit Start Time 07:30 Visit Stop Time 08:15 Visit Number 04/16 Evaluation Information Evaluation Date 04/28/24 Precautions Precautions s/p SAD, R rotator cuff debridement, arthroscopic biceps tendesis, and distal clavicle excision, DOS: PT-OP-B Current Condition Start: 04/28/24 07:22 Freq: Status: Active Protocol: Document 04/28/24 07:23 NM (Rec: 04/28/24 08:19 NM [id number]) Current Condition History of Current Condition Onset Date DOS: 04/07/24 Current Complaints pain, mobility, strength History of Current Condition Pt presents with R shoulder pain following rotator cuff debridement, arthroscopic biceps tendesis, decompression , and distal clavicle excision on 04/07/24. He states that they repaired the tear in his pec and biceps, but did not do anything to the rotator cuff. Pt saw Dr. Sanchez. He just had his 2 week follow up. Pt reports that he originally injured his arm when he tore the muscle when he was lifting something out of a loft, he had difficulty with controlling the lowering of the heavyier object. This occurred 2 years ago in March 2023. Pt also has concurrent R groin, lower back pain; he had L RACHELE in Oct 2023 but did not complete PT. He has had MRIs of his R shoulder. Pt reports difficulty with driving, push, pull, lift. Pt reports that he tripped over his dog this past Sunday, when he reached out to catch himself on the door post with his R hand. He reports that his pain has changed, now in his lower pec vs the upper pec . Still has pain in armpit, pec. Prior to fall had pain along GHJ, biceps. Pt saw Ramo Gaffney. wants pt to flex/ext elbow, move fingers. 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), driving Prior Functional Status Baseline Function- Work/School unemployed x10 years Current Functional Impairments (Reported) Functional Limitations- ADL's ADLs, grooming Functional Limitations- Other sleeping: side sleeper ( following RACHELE had to lie on R shoulder)- stopped PT following repair, did not complete because felt like re -aggravating it all the time; 3 hrs at time (previously 5-6 hrs) PT-OP-C Subjective Start: 04/28/24 07:22 Freq: Status: Active Protocol: Document 06/06/24 07:28 NM (Rec: 06/06/24 08:58 NM [id number]) OP-PT Subjective Patient Comments Patient Comments Pt reports that he had his MRI but he does not know that the reports says and he forgot to bring it. Pt reports that he has been doing pulleys and PROM; however, he states that he has only been doing pendulum, chicken wing to 90 deg abd AROM with elbow bent AROM (reports pulling at pec), PROM with arm into flexion with L hand and pulleys. Pt reports that his pain levels are high, still increased especially when working closer to 90 deg. He is able to lift his R arm actively into flex and abd with increased pain and limited ROM. Reports that he is having elbow pain, which he did not have previously; also increased biceps pain and pain along the posterior shoulder. States pain levels have been 8/10, pt took oxycodone last night (states first one is a week) as he is trying to conserve them. States has not been sleeping well, he reports that he is sleeping on his side (usually L, then on his R to give his L hip a break). Pt reports that he also has painful snapping and popping in his arm that began about 3 weeks ago, states that started after he saw Dr. Sanchez. PT-OP-E Functional Tests Start: 04/28/24 07:22 Freq: Status: Active Protocol: Document 04/28/24 07:23 NM (Rec: 04/28/24 08:19 NM [id number]) Functional Tests lAishaey's Scratch Test Action 1- Left ACJ Action 1- Right N/A Action 2- Left T5 Action 2- Right N/A Action 3- Left T8 Action 3- Right N/A PT-OP-F Manual Assessment Start: 04/28/24 07:22 Freq: Status: Active Protocol: Document 04/28/24 07:23 NM (Rec: 04/28/24 10:15 NM [id number]) Manual Assessments Soft Tissue Assessment Soft Tissue Mobility Assessment Increased restrictions of R upper trap, cervical paraspinals. Bruising and increased tenderness along biceps muscle belly, long head tendon, and pec muscle. Joint Mobility Assessment Joint Mobility Assessment Decreased SC joint, AC joint, and GH joint mobility passively on R shoulder PT-OP-G Mobility & Gait Start: 04/28/24 07:22 Freq: Status: Active Protocol: Document 04/28/24 07:23 NM (Rec: 04/28/24 10:15 NM [id number]) OP Gait Assessment Gait Gait Assistance Required: Independent Distance (Feet) 150 Gait Deviations General Gait Pattern Antalgic Comments Gait Comments Presents with standard R sling . Minimal trunk rotation, decreased stance time on LLE PT-OP-H Neuro Start: 04/28/24 07:22 Freq: Status: Active Protocol: Document 04/28/24 07:23 NM (Rec: 04/28/24 10:15 NM [id number]) Sensation Evaluation Comments Summary Comments RUE equally intact to light touch sensation with LUE PT-OP-J Posture/Palpation/Skin Start: 04/28/24 07:22 Freq: Status: Active Protocol: Document 04/28/24 07:23 NM (Rec: 04/28/24 08:19 NM [id number]) Posture Evaluation Position Standing Head/C-Spine Posture C-Spine Flattened Shoulder Posture (L) Rounded,(R) Rounded,(L) Forward,(R) Forward Scapula Posture (R) Protracted,(R) Winged Arm Posture (L) Neutral,(R) Internally Rotated Pelvis Posture Anteriorly Tilted Palpation Assessment Location R shoulder Palpation Details tenderness, swelling and edema along R arm Skin Assessment Incisional Assessment Incision Appearance/Comments Incisions C/D/I, no signs/ symptoms of infection Bruising: along biceps muscle belly and long head biceps, pectoralis, near nipple No significant swelling along R shoulder except near R upper trapezius PT-OP-K Range of Motion Start: 04/28/24 07:22 Freq: Status: Active Protocol: Document 06/06/24 07:28 NM (Rec: 06/06/24 08:58 NM [id number]) Shoulder Goniometric Range of Motion Shoulder R PROM Testing Position Supine Flexion 85 Abduction 70 Comments Initial evaluation: 80 deg flexion, 65 deg abduction 06/06/24: 85 deg flexion, 70 deg abduction; pain reported at end ranges; R AROM (trialed ): 60 deg flex, 50 deg abd with elbow flexed PT-OP-M Strength Start: 04/28/24 07:22 Freq: Status: Active Protocol: Document 06/06/24 07:28 NM (Rec: 06/06/24 08:58 NM [id number]) Shoulder Strength Shoulder Manual Muscle Testing Right Flexion 2- Poor- Abduction (C5) 2- Poor- External Rotation 2- Poor- Comments IE: Strength not tested to allow healing of surgical repair 06/06/24: able to initiate AROM against gravity but unable to achieve >25% ROM, has increased pain PT-OP-Q Treatments Start: 04/28/24 07:22 Freq: Status: Active Protocol: Document 06/06/24 07:28 NM (Rec: 06/06/24 08:58 NM [id number]) Therapeutic Exercises Supine Exercises AAROM Supine Exercise Name forward flexion in scaption Side right Equipment Used L assist R with dowel Reps/Minutes 5 Comments cued to remain within pain free ROM; 70 deg but inc biceps pain so d/c PROM Supine Exercise Name Forward flexion in scaption plane Side right Equipment Used L assist R Reps/Minutes 2x5 ea Comments cueing for execution, remain w /i pain free ROM; 70 deg Sidelying Exercises scapular mobility Sidelying Exercise Name 1. elevation/depression, 2. neutral > retraction Side right Reps/Minutes 10 ea Comments pain free, cued for scapular positioning prior to movement Sitting Exercises pulleys Sitting Exercise Name flexion and scaption ( performed in standing per pt home set up) Side right Resistance AAROM Equipment Used L assisting R, facing away from pulleys Reps/Minutes 2 min ea Comments 85 deg scaption, 90 deg flex limit w/ elbow straight Standing Exercises pendulums Standing Exercise Name 1. fwd/bwd, 2. lateral, 3. small circles Side right Reps/Minutes 2' ea Comments pain free, end of session Manual Therapy Treatment Consent Patient gave verbal consent for manual Yes treatment Soft Tissue Mobilization scar mobility Body Location R shoulder Mobilization Type Rolling Intensity/Depth Superficial Body Position Hooklying Comments Gentle soft tissue mobilization over tender anterior shoulder near biceps, less tenderness over other incisions along lateral and posterior shoulder cervical spine Body Location UT, LS, paraspinals, SOR, scalene, SCM Mobilization Type Rolling,Sustained Pressure Intensity/Depth Superficial Body Position Sidelying Comments Decreased muscle tension/ softening prior to PROM. Increased tension noted at LS/ UT, leading to scapular elevation. Palpable relaxation following gentle rolling. Monitored for pain R shoulder/periscapulars Body Location pec near axilla, lat, lateral posterior cuff Mobilization Type Rolling Intensity/Depth Superficial Body Position Hooklying Comments Tightness and mild tenderness along proximal pec and posterior cuff near teres/lat. Monitored for pain. Reduction in tension and pain with gentle rolling Joint Mobilizations R GHJ Direction post, inf Grade I Body Position Hooklying Comments for pain reduction. Pt continues to report that mobilization feels best on shoulder. Reports tenderness along anterior shoulder, PT adjusted hand positoning R scapulothoracic Direction elevation/depression, rotation , retraction/protraction Grade II Body Position Sidelying Reps/Duration 20 ea Comments Pre-positioned into slight scapular retraction, monitored for pain, following soft tissue mobilation to improved muscle length. Pt demonstrates improved scapular mobility and tolerance to scapular mobility Manual Techniques PROM Type FF, ABD (elbow bent & straight ) Body Location R GHJ Body Position Hooklying Reps/Duration 10 ea with brief, gentle pause at end range Comments Monitored for pain. Flexion 85 deg, abduction 70 deg, Pt has pain with passive eccentric lowering, but reduced with gentle isometric ext into PT hand with lowering. Demos increased muscle guarding, cued for breathwork and relaxation Self-Care/Home Management Treatment Education Patient Education Joint Protection,Pain Management Other Education Educated on continuing with ROM without pushing into pain via self PROM/AAROM and pulleys, pain management with cryotherapy and allowing R arm to relax against side vs holding up next to body to allow for muscle relaxation PT-OP-R Modalities Start: 04/28/24 07:22 Freq: Status: Active Protocol: Document 05/13/24 07:32 SP (Rec: 05/13/24 09:10 SP [id number]) Hot Pack/Cold Pack Treatment CP Location R shld Patient Position Sitting Patient Tolerance Good Comments good reported pain relief response. PT-OP-T Assessment and Plan Start: 04/28/24 07:22 Freq: Status: Active Protocol: Document 06/06/24 07:28 NM (Rec: 06/06/24 08:58 NM [id number]) Physical Therapy Assessment Goals Four Impairment quickdash 81.8% impairment Short Term Goal (STG) Pt will report impairment <50% impairment on quickdash in order to demonstrate improved R shoulder mobility and strength for ADLs/IADLs and QOL STG Duration 8 weeks Human Resources Hr Representative Goal (LTG) Pt will report impairment <25% impairment on quickdash in order to demonstrate improved R shoulder mobility and strength for ADLs/IADLs and QOL LTG Duration 12 weeks Three Impairment ADLs/IADLs Short Term Goal (STG) Pt will report that he is able to perform ADLs/IADLs without increase in baseline pain and without limitations due to R shoulder mobility 06/06/24: NOT MET- pt unable to perform ADLs/IADLs without increased pain, currently limited ROM STG Duration 8 weeks Human Resources Hr Representative Goal (LTG) Pt will report that he is able to perform ADLs/IADLs including driving with R arm without increase in baseline pain or limitation, if appropriate per MD LTG Duration 12 weeks Two Impairment strength Short Term Goal (STG) Pt will improve R global shoulder strength to at least 4-/5 MMT in order to demonstrate improved strength for reaching and ADLs 06/06/24: NOT MET- pt able to initiated ROM against gravity within protocol but limited due to weakness and pain, 2-/5 STG Duration 8 weeks Human Resources Hr Representative Goal (LTG) Pt will improve R global shoulder strength to at least 4+/5 MMT in order to demonstrate improved strength for reaching and ADLs LTG Duration 12 weeks One Impairment R shoulder ROM limited due to precautions Short Term Goal (STG) Pt will present with R shoulder flexion and abduction AROM to at least 90 deg in order to demonstrate improved mobility for reaching and dressing 06/06/24: NOT MET-PROM R shoulder flexion 85 deg with increased pain STG Duration 6 weeks Correction Goal (LTG) Pt will present with R shoulder flexion and abduction AROM to at least 150 deg in order to demonstrate improved mobility for reaching and dressing LTG Duration 12 weeks Progress Towards Goals Progress Towards Goals Slow Progress due to Medical Issues,Slow Progress due to Noncompliance Progress Comments Goals not met due to pain, decreased activity tolerance, poor compliance with HEP Assessment Summary Assessment Pt tolerated session fair. Emphasis on maintaining pt ROM . PT received confirmation from referring surgeon's office to continue with ROM while pt waiting to be seen following MRI. Pt continues to have limitations with R shoulder PROM and AROM into flex/abd/ER, limited to below 90 deg for all motions with increased pain reported. Pt continues to have subacromial pain, in addition to pain at previous repair sites and now at his biceps and rotator cuff . Session emphasis on maintaining available ROM and ensuring pt has HEP as pt has previously declined handouts. PT provided verbal and tactile facilitation at scapula during pulleys and sidelying scapular mobility. Demonstrates improved scapular control with pre-positioning for more optimal scapulohumeral positioning. Educated to maximize ROM without pushing into painful ranges with clear education/ cues on R scapula/humeral positioning with all exercises . Physical Therapy Plan Frequency and Duration Frequency of Treatment 1-2x/wk Duration of treatment (weeks) 12 Plan of Care Start Date 04/28/24 Plan of Care End Date 07/25/24 Therapeutic Interventions Therapeutic Interventions Coordination Training,Gait Training,Home Exercise Program ,Joint Mobilizations,Manual Therapy,Neuromuscular Re- education,Orthotic/Prosthetic Management,Patient/Caregiver Education,Self-Care/Home Management,Sensory Integration ,Soft Tissue Mobilization, Taping,Therapeutic Activities, Therapeutic Exercises Modalities Cold Pack/Ice Massage,Electric Stimulation,Hot Packs, Ultrasound Next Visit Focus/Plan Next Note Type Treatment Note Next Visit Plan Cont w/ phase 1 unless otherwise informed by . IFC and ice for pain management. retry gentle isometrics, cont with PROM/AAROM within pain free ROM. Retrial table slides . Cont with pulleys, ROM of R shoulder and elbow PT POC: Progress per protocol, start w/ phase I; do not progress to phase II until complete phase 1 PROM>AAROM>AROM (add PROM/ AAROM to HEP if looks good), review isometrics and add to HEP (add flex), scapular and glenohumeral mobilization, pendulums/cane/abhishek no bicep/tricep due to tenodesis until clarified with
--- NOTE | 2024-06-06 15:43 | PT.OTN ---
Current Diagnoses Stiffness of right shoulder, not elsewhere classified (06/06/24) Weakness (06/06/24) Strain of muscle(s) and tendon(s) of the rotator cuff of right shoulder, subsequent encounter (06/06/24) Physical Therapy Treatment Note PT-OP-A Visit Information Start: 04/28/24 07:22 Freq: Status: Active Protocol: Document 06/06/24 07:28 NM (Rec: 06/06/24 08:58 NM [id number]) Out-Patient Physical Therapy Visit Information Visit Information Visit Type Progress Note Visit Note DOS: 04/07 04/16 MAX visits Visit Start Time 07:30 Visit Stop Time 08:15 Visit Number 04/16 Evaluation Information Evaluation Date 04/28/24 Precautions Precautions s/p SAD, R rotator cuff debridement, arthroscopic biceps tendesis, and distal clavicle excision, DOS: PT-OP-B Current Condition Start: 04/28/24 07:22 Freq: Status: Active Protocol: Document 04/28/24 07:23 NM (Rec: 04/28/24 08:19 NM [id number]) Current Condition History of Current Condition Onset Date DOS: 04/07/24 Current Complaints pain, mobility, strength History of Current Condition Pt presents with R shoulder pain following rotator cuff debridement, arthroscopic biceps tendesis, decompression , and distal clavicle excision on 04/07/24. He states that they repaired the tear in his pec and biceps, but did not do anything to the rotator cuff. Pt saw Dr. Sanchez. He just had his 2 week follow up. Pt reports that he originally injured his arm when he tore the muscle when he was lifting something out of a loft, he had difficulty with controlling the lowering of the heavyier object. This occurred 2 years ago in March 2023. Pt also has concurrent R groin, lower back pain; he had L RACHELE in Oct 2023 but did not complete PT. He has had MRIs of his R shoulder. Pt reports difficulty with driving, push, pull, lift. Pt reports that he tripped over his dog this past Sunday, when he reached out to catch himself on the door post with his R hand. He reports that his pain has changed, now in his lower pec vs the upper pec . Still has pain in armpit, pec. Prior to fall had pain along GHJ, biceps. Pt saw Ramo Gaffney. wants pt to flex/ext elbow, move fingers. 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), driving Prior Functional Status Baseline Function- Work/School unemployed x10 years Current Functional Impairments (Reported) Functional Limitations- ADL's ADLs, grooming Functional Limitations- Other sleeping: side sleeper ( following RACHELE had to lie on R shoulder)- stopped PT following repair, did not complete because felt like re -aggravating it all the time; 3 hrs at time (previously 5-6 hrs) PT-OP-C Subjective Start: 04/28/24 07:22 Freq: Status: Active Protocol: Document 06/06/24 07:28 NM (Rec: 06/06/24 08:58 NM [id number]) OP-PT Subjective Patient Comments Patient Comments Pt reports that he had his MRI but he does not know that the reports says and he forgot to bring it. Pt reports that he has been doing pulleys and PROM; however, he states that he has only been doing pendulum, chicken wing to 90 deg abd AROM with elbow bent AROM (reports pulling at pec), PROM with arm into flexion with L hand and pulleys. Pt reports that his pain levels are high, still increased especially when working closer to 90 deg. He is able to lift his R arm actively into flex and abd with increased pain and limited ROM. Reports that he is having elbow pain, which he did not have previously; also increased biceps pain and pain along the posterior shoulder. States pain levels have been 8/10, pt took oxycodone last night (states first one is a week) as he is trying to conserve them. States has not been sleeping well, he reports that he is sleeping on his side (usually L, then on his R to give his L hip a break). Pt reports that he also has painful snapping and popping in his arm that began about 3 weeks ago, states that started after he saw Dr. Sanchez. PT-OP-E Functional Tests Start: 04/28/24 07:22 Freq: Status: Active Protocol: Document 04/28/24 07:23 NM (Rec: 04/28/24 08:19 NM [id number]) Functional Tests Alishaey's Scratch Test Action 1- Left ACJ Action 1- Right N/A Action 2- Left T5 Action 2- Right N/A Action 3- Left T8 Action 3- Right N/A PT-OP-F Manual Assessment Start: 04/28/24 07:22 Freq: Status: Active Protocol: Document 04/28/24 07:23 NM (Rec: 04/28/24 10:15 NM [id number]) Manual Assessments Soft Tissue Assessment Soft Tissue Mobility Assessment Increased restrictions of R upper trap, cervical paraspinals. Bruising and increased tenderness along biceps muscle belly, long head tendon, and pec muscle. Joint Mobility Assessment Joint Mobility Assessment Decreased SC joint, AC joint, and GH joint mobility passively on R shoulder PT-OP-G Mobility & Gait Start: 04/28/24 07:22 Freq: Status: Active Protocol: Document 04/28/24 07:23 NM (Rec: 04/28/24 10:15 NM [id number]) OP Gait Assessment Gait Gait Assistance Required: Independent Distance (Feet) 150 Gait Deviations General Gait Pattern Antalgic Comments Gait Comments Presents with standard R sling . Minimal trunk rotation, decreased stance time on LLE PT-OP-H Neuro Start: 04/28/24 07:22 Freq: Status: Active Protocol: Document 04/28/24 07:23 NM (Rec: 04/28/24 10:15 NM [id number]) Sensation Evaluation Comments Summary Comments RUE equally intact to light touch sensation with LUE PT-OP-J Posture/Palpation/Skin Start: 04/28/24 07:22 Freq: Status: Active Protocol: Document 04/28/24 07:23 NM (Rec: 04/28/24 08:19 NM [id number]) Posture Evaluation Position Standing Head/C-Spine Posture C-Spine Flattened Shoulder Posture (L) Rounded,(R) Rounded,(L) Forward,(R) Forward Scapula Posture (R) Protracted,(R) Winged Arm Posture (L) Neutral,(R) Internally Rotated Pelvis Posture Anteriorly Tilted Palpation Assessment Location R shoulder Palpation Details tenderness, swelling and edema along R arm Skin Assessment Incisional Assessment Incision Appearance/Comments Incisions C/D/I, no signs/ symptoms of infection Bruising: along biceps muscle belly and long head biceps, pectoralis, near nipple No significant swelling along R shoulder except near R upper trapezius PT-OP-K Range of Motion Start: 04/28/24 07:22 Freq: Status: Active Protocol: Document 06/06/24 07:28 NM (Rec: 06/06/24 08:58 NM [id number]) Shoulder Goniometric Range of Motion Shoulder R PROM Testing Position Supine Flexion 85 Abduction 70 Comments Initial evaluation: 80 deg flexion, 65 deg abduction 06/06/24: 85 deg flexion, 70 deg abduction; pain reported at end ranges; R AROM (trialed ): 60 deg flex, 50 deg abd with elbow flexed PT-OP-M Strength Start: 04/28/24 07:22 Freq: Status: Active Protocol: Document 06/06/24 07:28 NM (Rec: 06/06/24 08:58 NM [id number]) Shoulder Strength Shoulder Manual Muscle Testing Right Flexion 2- Poor- Abduction (C5) 2- Poor- External Rotation 2- Poor- Comments IE: Strength not tested to allow healing of surgical repair 06/06/24: able to initiate AROM against gravity but unable to achieve >25% ROM, has increased pain PT-OP-Q Treatments Start: 04/28/24 07:22 Freq: Status: Active Protocol: Document 06/06/24 07:28 NM (Rec: 06/06/24 08:58 NM [id number]) Therapeutic Exercises Supine Exercises AAROM Supine Exercise Name forward flexion in scaption Side right Equipment Used L assist R with dowel Reps/Minutes 5 Comments cued to remain within pain free ROM; 70 deg but inc biceps pain so d/c PROM Supine Exercise Name Forward flexion in scaption plane Side right Equipment Used L assist R Reps/Minutes 2x5 ea Comments cueing for execution, remain w /i pain free ROM; 70 deg Sidelying Exercises scapular mobility Sidelying Exercise Name 1. elevation/depression, 2. neutral > retraction Side right Reps/Minutes 10 ea Comments pain free, cued for scapular positioning prior to movement Sitting Exercises pulleys Sitting Exercise Name flexion and scaption ( performed in standing per pt home set up) Side right Resistance AAROM Equipment Used L assisting R, facing away from pulleys Reps/Minutes 2 min ea Comments 85 deg scaption, 90 deg flex limit w/ elbow straight Standing Exercises pendulums Standing Exercise Name 1. fwd/bwd, 2. lateral, 3. small circles Side right Reps/Minutes 2' ea Comments pain free, end of session Manual Therapy Treatment Consent Patient gave verbal consent for manual Yes treatment Soft Tissue Mobilization scar mobility Body Location R shoulder Mobilization Type Rolling Intensity/Depth Superficial Body Position Hooklying Comments Gentle soft tissue mobilization over tender anterior shoulder near biceps, less tenderness over other incisions along lateral and posterior shoulder cervical spine Body Location UT, LS, paraspinals, SOR, scalene, SCM Mobilization Type Rolling,Sustained Pressure Intensity/Depth Superficial Body Position Sidelying Comments Decreased muscle tension/ softening prior to PROM. Increased tension noted at LS/ UT, leading to scapular elevation. Palpable relaxation following gentle rolling. Monitored for pain R shoulder/periscapulars Body Location pec near axilla, lat, lateral posterior cuff Mobilization Type Rolling Intensity/Depth Superficial Body Position Hooklying Comments Tightness and mild tenderness along proximal pec and posterior cuff near teres/lat. Monitored for pain. Reduction in tension and pain with gentle rolling Joint Mobilizations R GHJ Direction post, inf Grade I Body Position Hooklying Comments for pain reduction. Pt continues to report that mobilization feels best on shoulder. Reports tenderness along anterior shoulder, PT adjusted hand positoning R scapulothoracic Direction elevation/depression, rotation , retraction/protraction Grade II Body Position Sidelying Reps/Duration 20 ea Comments Pre-positioned into slight scapular retraction, monitored for pain, following soft tissue mobilation to improved muscle length. Pt demonstrates improved scapular mobility and tolerance to scapular mobility Manual Techniques PROM Type FF, ABD (elbow bent & straight ) Body Location R GHJ Body Position Hooklying Reps/Duration 10 ea with brief, gentle pause at end range Comments Monitored for pain. Flexion 85 deg, abduction 70 deg, Pt has pain with passive eccentric lowering, but reduced with gentle isometric ext into PT hand with lowering. Demos increased muscle guarding, cued for breathwork and relaxation Self-Care/Home Management Treatment Education Patient Education Joint Protection,Pain Management Other Education Educated on continuing with ROM without pushing into pain via self PROM/AAROM and pulleys, pain management with cryotherapy and allowing R arm to relax against side vs holding up next to body to allow for muscle relaxation PT-OP-R Modalities Start: 04/28/24 07:22 Freq: Status: Active Protocol: Document 05/13/24 07:32 SP (Rec: 05/13/24 09:10 SP [id number]) Hot Pack/Cold Pack Treatment CP Location R shld Patient Position Sitting Patient Tolerance Good Comments good reported pain relief response. PT-OP-T Assessment and Plan Start: 04/28/24 07:22 Freq: Status: Active Protocol: Document 06/06/24 07:28 NM (Rec: 06/06/24 08:58 NM [id number]) Physical Therapy Assessment Goals Four Impairment quickdash 81.8% impairment Short Term Goal (STG) Pt will report impairment <50% impairment on quickdash in order to demonstrate improved R shoulder mobility and strength for ADLs/IADLs and QOL STG Duration 8 weeks Substation Engineer Goal (LTG) Pt will report impairment <25% impairment on quickdash in order to demonstrate improved R shoulder mobility and strength for ADLs/IADLs and QOL LTG Duration 12 weeks Three Impairment ADLs/IADLs Short Term Goal (STG) Pt will report that he is able to perform ADLs/IADLs without increase in baseline pain and without limitations due to R shoulder mobility 06/06/24: NOT MET- pt unable to perform ADLs/IADLs without increased pain, currently limited ROM STG Duration 8 weeks Substation Engineer Goal (LTG) Pt will report that he is able to perform ADLs/IADLs including driving with R arm without increase in baseline pain or limitation, if appropriate per MD LTG Duration 12 weeks Two Impairment strength Short Term Goal (STG) Pt will improve R global shoulder strength to at least 4-/5 MMT in order to demonstrate improved strength for reaching and ADLs 06/06/24: NOT MET- pt able to initiated ROM against gravity within protocol but limited due to weakness and pain, 2-/5 STG Duration 8 weeks Substation Engineer Goal (LTG) Pt will improve R global shoulder strength to at least 4+/5 MMT in order to demonstrate improved strength for reaching and ADLs LTG Duration 12 weeks One Impairment R shoulder ROM limited due to precautions Short Term Goal (STG) Pt will present with R shoulder flexion and abduction AROM to at least 90 deg in order to demonstrate improved mobility for reaching and dressing 06/06/24: NOT MET-PROM R shoulder flexion 85 deg with increased pain STG Duration 6 weeks Assisted Goal (LTG) Pt will present with R shoulder flexion and abduction AROM to at least 150 deg in order to demonstrate improved mobility for reaching and dressing LTG Duration 12 weeks Progress Towards Goals Progress Towards Goals Slow Progress due to Medical Issues,Slow Progress due to Noncompliance Progress Comments Goals not met due to pain, decreased activity tolerance, poor compliance with HEP Assessment Summary Assessment Pt tolerated session fair. Emphasis on maintaining pt ROM . PT received confirmation from referring surgeon's office to continue with ROM while pt waiting to be seen following MRI. Pt continues to have limitations with R shoulder PROM and AROM into flex/abd/ER, limited to below 90 deg for all motions with increased pain reported. Pt continues to have subacromial pain, in addition to pain at previous repair sites and now at his biceps and rotator cuff . Session emphasis on maintaining available ROM and ensuring pt has HEP as pt has previously declined handouts. PT provided verbal and tactile facilitation at scapula during pulleys and sidelying scapular mobility. Demonstrates improved scapular control with pre-positioning for more optimal scapulohumeral positioning. Educated to maximize ROM without pushing into painful ranges with clear education/ cues on R scapula/humeral positioning with all exercises . Physical Therapy Plan Frequency and Duration Frequency of Treatment 1-2x/wk Duration of treatment (weeks) 12 Plan of Care Start Date 04/28/24 Plan of Care End Date 07/25/24 Therapeutic Interventions Therapeutic Interventions Coordination Training,Gait Training,Home Exercise Program ,Joint Mobilizations,Manual Therapy,Neuromuscular Re- education,Orthotic/Prosthetic Management,Patient/Caregiver Education,Self-Care/Home Management,Sensory Integration ,Soft Tissue Mobilization, Taping,Therapeutic Activities, Therapeutic Exercises Modalities Cold Pack/Ice Massage,Electric Stimulation,Hot Packs, Ultrasound Next Visit Focus/Plan Next Note Type Treatment Note Next Visit Plan Cont w/ phase 1 unless otherwise informed by . IFC and ice for pain management. retry gentle isometrics, cont with PROM/AAROM within pain free ROM. Retrial table slides . Cont with pulleys, ROM of R shoulder and elbow PT POC: Progress per protocol, start w/ phase I; do not progress to phase II until complete phase 1 PROM>AAROM>AROM (add PROM/ AAROM to HEP if looks good), review isometrics and add to HEP (add flex), scapular and glenohumeral mobilization, pendulums/cane/abhishek no bicep/tricep due to tenodesis until clarified with
--- NOTE | 2024-06-10 13:41 | PT.OTN ---
Current Diagnoses Stiffness of right shoulder, not elsewhere classified (06/10/24) Weakness (06/10/24) Strain of muscle(s) and tendon(s) of the rotator cuff of right shoulder, subsequent encounter (06/10/24) Physical Therapy Treatment Note PT-OP-A Visit Information Start: 04/28/24 07:22 Freq: Status: Active Protocol: Document 06/10/24 07:29 NM (Rec: 06/10/24 08:18 NM [id number]) Out-Patient Physical Therapy Visit Information Visit Information Visit Type Treatment Note Visit Note DOS: 04/07 05/17 MAX visits Visit Start Time 07:30 Visit Stop Time 08:15 Visit Number 05/17 Evaluation Information Evaluation Date 04/28/24 Precautions Precautions s/p SAD, R rotator cuff debridement, arthroscopic biceps tendesis, and distal clavicle excision, DOS: PT-OP-B Current Condition Start: 04/28/24 07:22 Freq: Status: Active Protocol: Document 04/28/24 07:23 NM (Rec: 04/28/24 08:19 NM [id number]) Current Condition History of Current Condition Onset Date DOS: 04/07/24 Current Complaints pain, mobility, strength History of Current Condition Pt presents with R shoulder pain following rotator cuff debridement, arthroscopic biceps tendesis, decompression , and distal clavicle excision on 04/07/24. He states that they repaired the tear in his pec and biceps, but did not do anything to the rotator cuff. Pt saw Dr. Sanchez. He just had his 2 week follow up. Pt reports that he originally injured his arm when he tore the muscle when he was lifting something out of a loft, he had difficulty with controlling the lowering of the heavyier object. This occurred 2 years ago in March 2023. Pt also has concurrent R groin, lower back pain; he had L RACHELE in Oct 2023 but did not complete PT. He has had MRIs of his R shoulder. Pt reports difficulty with driving, push, pull, lift. Pt reports that he tripped over his dog this past Sunday, when he reached out to catch himself on the door post with his R hand. He reports that his pain has changed, now in his lower pec vs the upper pec . Still has pain in armpit, pec. Prior to fall had pain along GHJ, biceps. Pt saw Ramo Gaffney. wants pt to flex/ext elbow, move fingers. 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), driving Prior Functional Status Baseline Function- Work/School unemployed x10 years Current Functional Impairments (Reported) Functional Limitations- ADL's ADLs, grooming Functional Limitations- Other sleeping: side sleeper ( following RACHELE had to lie on R shoulder)- stopped PT following repair, did not complete because felt like re -aggravating it all the time; 3 hrs at time (previously 5-6 hrs) PT-OP-C Subjective Start: 04/28/24 07:22 Freq: Status: Active Protocol: Document 06/10/24 07:29 NM (Rec: 06/10/24 08:18 NM [id number]) OP-PT Subjective Patient Comments Patient Comments Pt reports that he is having a bad day with his R shoulder, states 04/02. Did not sleep well last night. Reports felt good Sunday and Sunday, but states Sunday and Sunday were pretty rough. He brought his MRI results on paper, but did not discuss with PT. Pt reports that he has been feeling different pain since Sunday, states Soreness in arm pit, pec, posterior axilla ; pt thinks from working it last session. PT-OP-E Functional Tests Start: 04/28/24 07:22 Freq: Status: Active Protocol: Document 04/28/24 07:23 NM (Rec: 04/28/24 08:19 NM [id number]) Functional Tests Apley's Scratch Test Action 1- Left ACJ Action 1- Right N/A Action 2- Left T5 Action 2- Right N/A Action 3- Left T8 Action 3- Right N/A PT-OP-F Manual Assessment Start: 04/28/24 07:22 Freq: Status: Active Protocol: Document 04/28/24 07:23 NM (Rec: 04/28/24 10:15 NM [id number]) Manual Assessments Soft Tissue Assessment Soft Tissue Mobility Assessment Increased restrictions of R upper trap, cervical paraspinals. Bruising and increased tenderness along biceps muscle belly, long head tendon, and pec muscle. Joint Mobility Assessment Joint Mobility Assessment Decreased SC joint, AC joint, and GH joint mobility passively on R shoulder PT-OP-G Mobility & Gait Start: 04/28/24 07:22 Freq: Status: Active Protocol: Document 04/28/24 07:23 NM (Rec: 04/28/24 10:15 NM [id number]) OP Gait Assessment Gait Gait Assistance Required: Independent Distance (Feet) 150 Gait Deviations General Gait Pattern Antalgic Comments Gait Comments Presents with standard R sling . Minimal trunk rotation, decreased stance time on LLE PT-OP-H Neuro Start: 04/28/24 07:22 Freq: Status: Active Protocol: Document 04/28/24 07:23 NM (Rec: 04/28/24 10:15 NM [id number]) Sensation Evaluation Comments Summary Comments RUE equally intact to light touch sensation with LUE PT-OP-J Posture/Palpation/Skin Start: 04/28/24 07:22 Freq: Status: Active Protocol: Document 04/28/24 07:23 NM (Rec: 04/28/24 08:19 NM [id number]) Posture Evaluation Position Standing Head/C-Spine Posture C-Spine Flattened Shoulder Posture (L) Rounded,(R) Rounded,(L) Forward,(R) Forward Scapula Posture (R) Protracted,(R) Winged Arm Posture (L) Neutral,(R) Internally Rotated Pelvis Posture Anteriorly Tilted Palpation Assessment Location R shoulder Palpation Details tenderness, swelling and edema along R arm Skin Assessment Incisional Assessment Incision Appearance/Comments Incisions C/D/I, no signs/ symptoms of infection Bruising: along biceps muscle belly and long head biceps, pectoralis, near nipple No significant swelling along R shoulder except near R upper trapezius PT-OP-K Range of Motion Start: 04/28/24 07:22 Freq: Status: Active Protocol: Document 06/06/24 07:28 NM (Rec: 06/06/24 08:58 NM [id number]) Shoulder Goniometric Range of Motion Shoulder R PROM Testing Position Supine Flexion 85 Abduction 70 Comments Initial evaluation: 80 deg flexion, 65 deg abduction 06/06/24: 85 deg flexion, 70 deg abduction; pain reported at end ranges; R AROM (trialed ): 60 deg flex, 50 deg abd with elbow flexed PT-OP-M Strength Start: 04/28/24 07:22 Freq: Status: Active Protocol: Document 06/06/24 07:28 NM (Rec: 06/06/24 08:58 NM [id number]) Shoulder Strength Shoulder Manual Muscle Testing Right Flexion 2- Poor- Abduction (C5) 2- Poor- External Rotation 2- Poor- Comments IE: Strength not tested to allow healing of surgical repair 06/06/24: able to initiate AROM against gravity but unable to achieve >25% ROM, has increased pain PT-OP-Q Treatments Start: 04/28/24 07:22 Freq: Status: Active Protocol: Document 06/10/24 07:29 NM (Rec: 06/10/24 08:18 NM [id number]) Therapeutic Exercises Sitting Exercises neck stretches Sitting Exercise Name UT, LS, scalenes/SCM pulleys Sitting Exercise Name flexion and scaption ( performed in standing per pt home set up) Side right Resistance AAROM Equipment Used L assisting R, facing away from pulleys; mirror for visual feedback Reps/Minutes 2 min ea Comments 75 deg flex,90 scap;cued ER of hand vs neutral hand positioning, no UT comp Standing Exercises isometrics Standing Exercise Name shldr: 1. ADD, 2. ABD, 3.ext ( to neutral), 4. ER, 5. IR, 6. flex Side right Resistance HEP; PT provided resist for cue, then wall Equipment Used L assist R for support as needed Reps/Minutes 10x1>3 hold, @ wall for HEP 5x1-3 hold Comments cueing to remain submax and pain free; ER/abd most challenge pendulums Standing Exercise Name 1. fwd/bwd, 2. lateral, 3. small circles Side right Reps/Minutes 1' ea Comments pain free, btwn sets of other exercises Manual Therapy Treatment Consent Patient gave verbal consent for manual Yes treatment Soft Tissue Mobilization cervical spine Body Location UT, LS, paraspinals, scalene, SCM Mobilization Type Rolling,Sustained Pressure Intensity/Depth Superficial Body Position Sidelying Comments Decreased muscle tension/ softening prior to PROM. Increased tension noted at LS/ UT, leading to scapular elevation. Palpable relaxation following gentle rolling. Monitored for pain R shoulder/periscapulars Body Location pec near axilla, lat, lateral posterior cuff Mobilization Type Rolling Intensity/Depth Superficial Body Position Hooklying Comments Tightness and mild tenderness along proximal pec and posterior cuff near teres/lat. Monitored for pain. Reduction in tension and pain with gentle rolling Joint Mobilizations R GHJ Direction post, inf Grade II Body Position Hooklying Reps/Duration 2x30 ea Comments Improved mobility with joint mobilization today. For pain reduction and mobility, able to achieve 120 deg PROM following mobilization R scapulothoracic Direction elevation/depression, rotation , retraction/protraction Grade II Body Position Sidelying Reps/Duration 10 Comments Pre-positioned into slight scapular retraction, monitored for pain, following soft tissue mobilation to improved muscle length. Pt demonstrates improved scapular mobility and tolerance to scapular mobility Manual Techniques PROM Type FF, ABD Body Location R GHJ Body Position Hooklying Reps/Duration 10 Comments Up to 120 deg flex in scaption ; monitored for pain, shoulder catches at 90 deg with mild improvement if slight posterior glide. Improved post GHJ mobilization PT-OP-R Modalities Start: 04/28/24 07:22 Freq: Status: Active Protocol: Document 05/13/24 07:32 SP (Rec: 05/13/24 09:10 SP [id number]) Hot Pack/Cold Pack Treatment CP Location R shld Patient Position Sitting Patient Tolerance Good Comments good reported pain relief response. PT-OP-T Assessment and Plan Start: 04/28/24 07:22 Freq: Status: Active Protocol: Document 06/10/24 07:29 NM (Rec: 06/10/24 08:18 NM [id number]) Physical Therapy Assessment Goals Four Impairment quickdash 81.8% impairment Short Term Goal (STG) Pt will report impairment <50% impairment on quickdash in order to demonstrate improved R shoulder mobility and strength for ADLs/IADLs and QOL STG Duration 8 weeks Skilled Nursing Goal (LTG) Pt will report impairment <25% impairment on quickdash in order to demonstrate improved R shoulder mobility and strength for ADLs/IADLs and QOL LTG Duration 12 weeks Three Impairment ADLs/IADLs Short Term Goal (STG) Pt will report that he is able to perform ADLs/IADLs without increase in baseline pain and without limitations due to R shoulder mobility 06/06/24: NOT MET- pt unable to perform ADLs/IADLs without increased pain, currently limited ROM STG Duration 8 weeks Skilled Nursing Goal (LTG) Pt will report that he is able to perform ADLs/IADLs including driving with R arm without increase in baseline pain or limitation, if appropriate per MD LTG Duration 12 weeks Two Impairment strength Short Term Goal (STG) Pt will improve R global shoulder strength to at least 4-/5 MMT in order to demonstrate improved strength for reaching and ADLs 06/06/24: NOT MET- pt able to initiated ROM against gravity within protocol but limited due to weakness and pain, 2-/5 STG Duration 8 weeks Skilled Nursing Goal (LTG) Pt will improve R global shoulder strength to at least 4+/5 MMT in order to demonstrate improved strength for reaching and ADLs LTG Duration 12 weeks One Impairment R shoulder ROM limited due to precautions Short Term Goal (STG) Pt will present with R shoulder flexion and abduction AROM to at least 90 deg in order to demonstrate improved mobility for reaching and dressing 06/06/24: NOT MET-PROM R shoulder flexion 85 deg with increased pain STG Duration 6 weeks Skilled Nursing Goal (LTG) Pt will present with R shoulder flexion and abduction AROM to at least 150 deg in order to demonstrate improved mobility for reaching and dressing LTG Duration 12 weeks Assessment Summary Assessment Pt tolerated session well. Re- initiated isometrics, which pt able to perform well submaximally without increase in pain. ER and abduction most limiting for pt. PT provided resistance initially, but pt able to progress to using wall while supporting arm as needed. Able to achieve 120 deg with PROM today. Pt AROM still limited to below 90 deg with increased pain. Demonstrates increased pain at 90 degrees, in addition to catching and tightening feeling in subacromial region. Cued for posture and scapular setting prior to attempting R shoulder elevation with all exercises and ROM. Educated on importance of correct scapulohumeral position with HEP. Pt verbalizes understanding. Pt will waiting on assessment from surgeon; PT educated pt that unable to discuss MRI until he reviews with surgeon. He would benefit from skilled PT for R shoulder ROM and strengthening per protocol in order to improve mobility for lifting and reaching as appropriate. Physical Therapy Plan Frequency and Duration Frequency of Treatment 1-2x/wk Duration of treatment (weeks) 12 Plan of Care Start Date 04/28/24 Plan of Care End Date 07/25/24 Therapeutic Interventions Therapeutic Interventions Coordination Training,Gait Training,Home Exercise Program ,Joint Mobilizations,Manual Therapy,Neuromuscular Re- education,Orthotic/Prosthetic Management,Patient/Caregiver Education,Self-Care/Home Management,Sensory Integration ,Soft Tissue Mobilization, Taping,Therapeutic Activities, Therapeutic Exercises Modalities Cold Pack/Ice Massage,Electric Stimulation,Hot Packs, Ultrasound Other Referrals/Consults Referrals/Consults Recommended . Hold Physical Therapy Reason For Hold . Next Visit Focus/Plan Next Note Type Treatment Note Next Visit Plan Cont w/ phase 1. Ask about MD appt on 06/18. IFC and ice for pain management. review isometrics if needed, cont with PROM/AAROM/AROM within pain free ROM. Retrial table slides. Cont with pulleys, ROM of R shoulder and elbow PT POC: Progress per protocol, start w/ phase I; do not progress to phase II until complete phase 1 PROM>AAROM>AROM (add PROM/ AAROM to HEP if looks good), review isometrics and add to HEP (add flex), scapular and glenohumeral mobilization, pendulums/cane/abhishek no bicep/tricep due to tenodesis until clarified with
--- NOTE | 2024-06-19 16:34 | PT-OP ANOTE ---
PT called and spoke to pt regarding follow up with surgeon on 06/18; he is planning to have surgery on 06/30. Has a tear to his rotator cuff, longer surgery and healing time which pt is now expecting. Pt called today to cancel all appt due to upcoming surgery. Has follow up with surgeon on 07/16. Planning to start surgery after 2 week appt with updated protocol. PT recommended that pt schedule his appt for post-op.
--- NOTE | 2024-07-14 07:55 | PT.OPDS ---
Current Diagnoses Stiffness of right shoulder, not elsewhere classified (06/10/24) Weakness (06/10/24) Strain of muscle(s) and tendon(s) of the rotator cuff of right shoulder, subsequent encounter (06/10/24) Visit Care Team Role Provider Type Yazan Cortés MD Family Provider Non-Staff Primary Care Provider Specialty: Family Practice Address: [address] , [place], [address] Email: Daiana Brennan PA-C Attending Provider Non-Staff Referring Provider Specialty: General Surgery Address: [address] [facility], [place], [address] Email: Visit Number Visit Number 05/17 Discharge Summary PT-OP-B Current Condition Start: 04/28/24 07:22 Freq: Status: Active Protocol: Document 04/28/24 07:23 NM (Rec: 04/28/24 08:19 NM [id number]) Current Condition History of Current Condition Onset Date DOS: 04/07/24 Current Complaints pain, mobility, strength History of Current Condition Pt presents with R shoulder pain following rotator cuff debridement, arthroscopic biceps tendesis, decompression , and distal clavicle excision on 04/07/24. He states that they repaired the tear in his pec and biceps, but did not do anything to the rotator cuff. Pt saw Dr. Sanchez. He just had his 2 week follow up. Pt reports that he originally injured his arm when he tore the muscle when he was lifting something out of a loft, he had difficulty with controlling the lowering of the heavyier object. This occurred 2 years ago in March 2023. Pt also has concurrent R groin, lower back pain; he had L RACHELE in Oct 2023 but did not complete PT. He has had MRIs of his R shoulder. Pt reports difficulty with driving, push, pull, lift. Pt reports that he tripped over his dog this past Sunday, when he reached out to catch himself on the door post with his R hand. He reports that his pain has changed, now in his lower pec vs the upper pec . Still has pain in armpit, pec. Prior to fall had pain along GHJ, biceps. Pt saw Ramo Gaffney. wants pt to flex/ext elbow, move fingers. 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 Prior Functional Status Baseline Function- Work/School unemployed x10 years Current Functional Impairments (Reported) Functional Limitations- ADL's ADLs, grooming Functional Limitations- Other sleeping: side sleeper ( following RACHELE had to lie on R shoulder)- stopped PT following repair, did not complete because felt like re -aggravating it all the time; 3 hrs at time (previously 5-6 hrs) PT-OP-C Subjective Start: 04/28/24 07:22 Freq: Status: Active Protocol: Document 06/10/24 07:29 NM (Rec: 06/10/24 08:18 NM [id number]) OP-PT Subjective Patient Comments Patient Comments Pt reports that he is having a bad day with his R shoulder, states 04/02. Did not sleep well last night. Reports felt good Sunday and Sunday, but states Sunday and Sunday were pretty rough. He brought his MRI results on paper, but did not discuss with PT. Pt reports that he has been feeling different pain since Sunday, states Soreness in arm pit, pec, posterior axilla ; pt thinks from working it last session. PT-OP-E Functional Tests Start: 04/28/24 07:22 Freq: Status: Active Protocol: Document 04/28/24 07:23 NM (Rec: 04/28/24 08:19 NM [id number]) Functional Tests Apley's Scratch Test Action 1- Left ACJ Action 1- Right N/A Action 2- Left T5 Action 2- Right N/A Action 3- Left T8 Action 3- Right N/A PT-OP-F Manual Assessment Start: 04/28/24 07:22 Freq: Status: Active Protocol: Document 04/28/24 07:23 NM (Rec: 04/28/24 10:15 NM [id number]) Manual Assessments Soft Tissue Assessment Soft Tissue Mobility Assessment Increased restrictions of R upper trap, cervical paraspinals. Bruising and increased tenderness along biceps muscle belly, long head tendon, and pec muscle. Joint Mobility Assessment Joint Mobility Assessment Decreased SC joint, AC joint, and GH joint mobility passively on R shoulder PT-OP-G Mobility & Gait Start: 04/28/24 07:22 Freq: Status: Active Protocol: Document 04/28/24 07:23 NM (Rec: 04/28/24 10:15 NM [id number]) OP Gait Assessment Gait Gait Assistance Required: Independent Distance (Feet) 150 Gait Deviations General Gait Pattern Antalgic Comments Gait Comments Presents with standard R sling . Minimal trunk rotation, decreased stance time on LLE PT-OP-H Neuro Start: 04/28/24 07:22 Freq: Status: Active Protocol: Document 04/28/24 07:23 NM (Rec: 04/28/24 10:15 NM [id number]) Sensation Evaluation Comments Summary Comments RUE equally intact to light touch sensation with LUE PT-OP-J Posture/Palpation/Skin Start: 04/28/24 07:22 Freq: Status: Active Protocol: Document 04/28/24 07:23 NM (Rec: 04/28/24 08:19 NM [id number]) Posture Evaluation Position Standing Head/C-Spine Posture C-Spine Flattened Shoulder Posture (L) Rounded,(R) Rounded,(L) Forward,(R) Forward Scapula Posture (R) Protracted,(R) Winged Arm Posture (L) Neutral,(R) Internally Rotated Pelvis Posture Anteriorly Tilted Palpation Assessment Location R shoulder Palpation Details tenderness, swelling and edema along R arm Skin Assessment Incisional Assessment Incision Appearance/Comments Incisions C/D/I, no signs/ symptoms of infection Bruising: along biceps muscle belly and long head biceps, pectoralis, near nipple No significant swelling along R shoulder except near R upper trapezius PT-OP-K Range of Motion Start: 04/28/24 07:22 Freq: Status: Active Protocol: Document 06/06/24 07:28 NM (Rec: 06/06/24 08:58 NM [id number]) Shoulder Goniometric Range of Motion Shoulder R PROM Testing Position Supine Flexion 85 Abduction 70 Comments Initial evaluation: 80 deg flexion, 65 deg abduction 06/06/24: 85 deg flexion, 70 deg abduction; pain reported at end ranges; R AROM (trialed ): 60 deg flex, 50 deg abd with elbow flexed PT-OP-M Strength Start: 04/28/24 07:22 Freq: Status: Active Protocol: Document 06/06/24 07:28 NM (Rec: 06/06/24 08:58 NM [id number]) Shoulder Strength Shoulder Manual Muscle Testing Right Flexion 2- Poor- Abduction (C5) 2- Poor- External Rotation 2- Poor- Comments IE: Strength not tested to allow healing of surgical repair 06/06/24: able to initiate AROM against gravity but unable to achieve >25% ROM, has increased pain PT-OP-T Assessment and Plan Start: 04/28/24 07:22 Freq: Status: Active Protocol: Document 07/14/24 07:49 NM (Rec: 07/14/24 07:55 NM [id number]) Physical Therapy Assessment Goals Four Impairment quickdash 81.8% impairment Short Term Goal (STG) Pt will report impairment <50% impairment on quickdash in order to demonstrate improved R shoulder mobility and strength for ADLs/IADLs and QOL STG Duration 8 weeks Assisted Goal (LTG) Pt will report impairment <25% impairment on quickdash in order to demonstrate improved R shoulder mobility and strength for ADLs/IADLs and QOL LTG Duration 12 weeks Three Impairment ADLs/IADLs Short Term Goal (STG) Pt will report that he is able to perform ADLs/IADLs without increase in baseline pain and without limitations due to R shoulder mobility 06/06/24: NOT MET- pt unable to perform ADLs/IADLs without increased pain, currently limited ROM STG Duration 8 weeks Stock Room Manager Goal (LTG) Pt will report that he is able to perform ADLs/IADLs including driving with R arm without increase in baseline pain or limitation, if appropriate per MD LTG Duration 12 weeks Two Impairment strength Short Term Goal (STG) Pt will improve R global shoulder strength to at least 4-/5 MMT in order to demonstrate improved strength for reaching and ADLs 06/06/24: NOT MET- pt able to initiated ROM against gravity within protocol but limited due to weakness and pain, 2-/5 STG Duration 8 weeks Stock Room Manager Goal (LTG) Pt will improve R global shoulder strength to at least 4+/5 MMT in order to demonstrate improved strength for reaching and ADLs LTG Duration 12 weeks One Impairment R shoulder ROM limited due to precautions Short Term Goal (STG) Pt will present with R shoulder flexion and abduction AROM to at least 90 deg in order to demonstrate improved mobility for reaching and dressing 06/06/24: NOT MET-PROM R shoulder flexion 85 deg with increased pain STG Duration 6 weeks Assisted Goal (LTG) Pt will present with R shoulder flexion and abduction AROM to at least 150 deg in order to demonstrate improved mobility for reaching and dressing LTG Duration 12 weeks Assessment Summary Assessment Pt attended x8 visits since initial evaluation in April 2024 s/p SAD, rotator cuff debridement, arthroscopic biceps tenodesis, and distal clavicle excision on 04/07/24. Pt did not progress toward any goals and was referred back to referring surgeon twice to address pt increased pain and lack of progression due to ROM /strength limitations following fall before evaluation. Physical Therapy Plan Frequency and Duration Frequency of Treatment 1-2x/wk Duration of treatment (weeks) 12 Plan of Care Start Date 04/28/24 Plan of Care End Date 07/25/24 Therapeutic Interventions Therapeutic Interventions Coordination Training,Gait Training,Home Exercise Program ,Joint Mobilizations,Manual Therapy,Neuromuscular Re- education,Orthotic/Prosthetic Management,Patient/Caregiver Education,Self-Care/Home Management,Sensory Integration ,Soft Tissue Mobilization, Taping,Therapeutic Activities, Therapeutic Exercises Modalities Cold Pack/Ice Massage,Electric Stimulation,Hot Packs, Ultrasound Other Referrals/Consults Referrals/Consults Recommended . Hold Physical Therapy Reason For Hold . Discharge Physical Therapy Discharge Reasons Change in Medical Status Discharge Comments Pt had appt on 06/18 with surgeon, planning to have an additional surgery in June following recent MRI. Pt will need new referral following surgery in order to return to PT following upcoming surgery. Next Visit Focus/Plan Next Note Type Discharge Summary Next Visit Plan discharge from PT
== END 2024-07-23 15:11 | disposition home or self-care (01) ==
LOC: PHYS 07:30
PROVIDERS: Family Provider Family Medicine Sports Medicine; PCP Family Medicine Sports Medicine; Referring Provider Physician Assistant; Visit Provider Physician Assistant
DX: S46.011D Strain of muscle(s) and tendon(s) of the rotator cuff of right shoulder, subsequent encounter (principal); R53.1 Weakness; M25.611 Stiffness of right shoulder, not elsewhere classified
CPT/HCPCS: 97110; 97140; 97162